=== PATIENT | female | born 1980 | race Hispanic/Latino ===

== ENCOUNTER 2017-02-04 10:21 | Emergency (ER) | payer SELFPAY ==
[2017-02-04 11:01] VITALS: BP 132/81
[2017-02-04] MEDS ORDERED: TORADOL IM ONE (11:35)
--- NOTE | 2017-02-04 11:36 | Emergency Department Report ---
Entered by ROBBIE JACKMAN, acting as scribe for EFRAÍN MUELLER PA. ED ENT HPI - General Chief complaint: Sore Throat Stated complaint: SORE THROAT Time Seen by Provider: 02/04/17 11:25 Source: patient Mode of arrival: Ambulatory Limitations: No Limitations - History of Present Illness Initial comments: 36 y/o female with a PMHx of asthma, ovarian cysts, and pancreatitis presents to the ED c/o a gradually worsening sore throat that began 2 days ago. Rates pain an 8/10 in severity, which she describes as aching in quality. Aggravated with swallowing and alleviated with nothing. Denies drooling, fever, chills, nausea, vomiting, ear pain, facial pain, headache, and dizziness. Denies any sick contacts. Allergic to cyclobenzaprine HCl. complaint: sore throat Onset/Timin -: days(s) Location: throat Severity: severe Severity scale (0 -10): 8 Quality: aching Consistency: constant Improves with: none Worsens with: swallowing Associated Symptoms: sore throat. denies: fever, cough, gum swelling, toothache , pain with swallowing, tinnitus, hearing loss, discharge from ear, rhinorrhea - Related Data Previous Rx's Medication Instructions Recorded Last Taken Type oxyCODONE /ACETAMINOPHEN [Percocet 1 tab PO Q6HR PRN #10 tablet 04/25/14 Unknown Rx 5/325] Ciprofloxacin HCl [Cipro] 250 mg PO BID #6 tablet 10/16/14 Unknown Rx Ibuprofen [Motrin 800 MG tab] 800 mg PO TID PRN #30 tablet 10/16/14 Unknown Rx Methocarbamol [Robaxin] 750 mg PO BID #20 tab 10/16/14 Unknown Rx oxyCODONE /ACETAMINOPHEN [Percocet 1 tab PO Q6HR PRN #20 tablet 01/24/15 Unknown Rx 5/325 mg] Albuterol Sulfate [Ventolin HFA] 2 puff IH Q4H PRN #1 hfa.aer.ad 09/21/15 Unknown Rx Clarithromycin [Biaxin] 500 mg PO BID #20 tab 09/21/15 Unknown Rx predniSONE [Deltasone] 50 mg PO QDAY #5 tab 09/21/15 Unknown Rx traMADol [Ultram 50 MG tab] 50 mg PO Q6HR PRN #10 tablet 09/21/15 Unknown Rx Ibuprofen [Motrin] 800 mg PO Q8HR PRN #30 tablet 02/04/17 Unknown Rx Penicillin Vk [Veetids TAB] 500 mg PO BID #40 tablet 02/04/17 Unknown Rx Allergies Allergy/AdvReac Type Severity Reaction Status Date / Time cyclobenzaprine HCl Allergy Itching Verified 01/24/15 16:08 [From [facility]] ED Dental HPI - General Chief complaint: Sore Throat Stated complaint: SORE THROAT Time Seen by Provider: 02/04/17 11:25 Source: patient Mode of arrival: Ambulatory Limitations: No Limitations - History of Present Illness MD complaint: sore throat Onset/Timin -: days(s) Severity: severe Quality: aching Consistency: constant Improves with: none Worsens with: swallowing Dental Associated Symptons: Yes: Sore Throat. No: Headache, Earache, Gum Swelling, Fever - Related Data Previous Rx's Medication Instructions Recorded Last Taken Type oxyCODONE /ACETAMINOPHEN [Percocet 1 tab PO Q6HR PRN #10 tablet 04/25/14 Unknown Rx 5/325] Ciprofloxacin HCl [Cipro] 250 mg PO BID #6 tablet 10/16/14 Unknown Rx Ibuprofen [Motrin 800 MG tab] 800 mg PO TID PRN #30 tablet 10/16/14 Unknown Rx Methocarbamol [Robaxin] 750 mg PO BID #20 tab 10/16/14 Unknown Rx oxyCODONE /ACETAMINOPHEN [Percocet 1 tab PO Q6HR PRN #20 tablet 01/24/15 Unknown Rx 5/325 mg] Albuterol Sulfate [Ventolin HFA] 2 puff IH Q4H PRN #1 hfa.aer.ad 09/21/15 Unknown Rx Clarithromycin [Biaxin] 500 mg PO BID #20 tab 09/21/15 Unknown Rx predniSONE [Deltasone] 50 mg PO QDAY #5 tab 09/21/15 Unknown Rx traMADol [Ultram 50 MG tab] 50 mg PO Q6HR PRN #10 tablet 09/21/15 Unknown Rx Ibuprofen [Motrin] 800 mg PO Q8HR PRN #30 tablet 02/04/17 Unknown Rx Penicillin Vk [Veetids TAB] 500 mg PO BID #40 tablet 02/04/17 Unknown Rx Allergies Allergy/AdvReac Type Severity Reaction Status Date / Time cyclobenzaprine HCl Allergy Itching Verified 01/24/15 16:08 [From Flexeril] ED Review of Systems Comment: All other systems reviewed and negative Constitutional: denies: chills, fever Eyes: denies: eye pain, eye discharge, vision change ENT: throat pain. denies: ear pain, dental pain, hearing loss, epistaxis, congestion Respiratory: denies: cough, shortness of breath, wheezing Cardiovascular: denies: chest pain, palpitations Endocrine: no symptoms reported Gastrointestinal: denies: abdominal pain, nausea, vomiting, diarrhea Musculoskeletal: denies: back pain, joint swelling, arthralgia Skin: denies: rash, lesions Neurological: denies: headache, weakness, numbness, paresthesias ED Past Medical Hx - Past Medical History Previous Medical History?: Yes Hx Congestive Heart Failure: No Hx Diabetes: No Hx Asthma: Yes Hx COPD: No Additional medical history: History of ovarian cysts. History of pancreatitis - Surgical History Past Surgical History?: Yes Hx Cholecystectomy: Yes Additional Surgical History: tubal ligation. Right knee arthroscopy for mensical tear 12/01/13 - Family History Family history: no significant - Social History Smoking Status: Current Every Day Smoker Substance Use Type: None - Medications Home Medications: Home Medications Medication Instructions Recorded Confirmed Last Taken Type oxyCODONE /ACETAMINOPHEN [Percocet 1 tab PO Q6HR PRN #10 tablet 04/25/14 Unknown Rx 5/325] Ciprofloxacin HCl [Cipro] 250 mg PO BID #6 tablet 10/16/14 Unknown Rx Ibuprofen [Motrin 800 MG tab] 800 mg PO TID PRN #30 tablet 10/16/14 Unknown Rx Methocarbamol [Robaxin] 750 mg PO BID #20 tab 10/16/14 Unknown Rx oxyCODONE /ACETAMINOPHEN [Percocet 1 tab PO Q6HR PRN #20 tablet 01/24/15 Unknown Rx 5/325 mg] Albuterol Sulfate [Ventolin HFA] 2 puff IH Q4H PRN #1 hfa.aer.ad 09/21/15 Unknown Rx Clarithromycin [Biaxin] 500 mg PO BID #20 tab 09/21/15 Unknown Rx predniSONE [Deltasone] 50 mg PO QDAY #5 tab 09/21/15 Unknown Rx traMADol [Ultram 50 MG tab] 50 mg PO Q6HR PRN #10 tablet 09/21/15 Unknown Rx Ibuprofen [Motrin] 800 mg PO Q8HR PRN #30 tablet 02/04/17 Unknown Rx Penicillin Vk [Veetids TAB] 500 mg PO BID #40 tablet 02/04/17 Unknown Rx ED Physical Exam - General Limitations: No Limitations General appearance: alert, in no apparent distress - Head Head exam: Present: atraumatic, normocephalic - Eye Eye exam: Present: normal appearance, PERRL, EOMI Pupils: Present: normal accommodation - ENT ENT exam: Present: mucous membranes moist, TM's normal bilaterally, normal external ear exam. Absent: normal exam, normal orophraynx - Expanded ENT Exam Expanded Ear exam: Present: normal external inspection Mouth exam: Present: normal external inspection, tongue normal. Absent: drooling, trismus, muffled voice, tongue elevation, laceration Teeth exam: Present: normal inspection Throat exam: Positive: tonsillar erythema, tonsillomegaly, tonsillar exudate. Negative: normal inspection, R peritonsillar mass, L peritonsillar mass - Neck Neck exam: Present: normal inspection, full ROM. Absent: tenderness, meningismus, lymphadenopathy, thyromegaly - Respiratory Respiratory exam: Present: normal lung sounds bilaterally. Absent: respiratory distress - Cardiovascular Cardiovascular Exam: Present: regular rate, normal rhythm. Absent: systolic murmur, diastolic murmur, rubs, gallop - GI/Abdominal GI/Abdominal exam: Present: soft, normal bowel sounds. Absent: distended - Extremities Exam Extremities exam: Present: normal inspection - Back Exam Back exam: Present: normal inspection - Neurological Exam Neurological exam: Present: alert, oriented X3 - Psychiatric Psychiatric exam: Present: normal affect, normal mood - Skin Skin exam: Present: warm, dry, intact, normal color. Absent: rash ED Course Vital Signs 02/04/17 10:57 Temperature 98.7 F Pulse Rate 91 H Respiratory 18 Rate Blood Pressure 132/81 O2 Sat by Pulse 100 Oximetry ED Medical Decision Making - Medical Decision Making patient is resting comfortably at this time. VSS and NAD. will treat for strept ED Disposition Clinical Impression: Acute bacterial tonsillitis Disposition: DC- TO HOME OR SELFCARE Is pt being admited?: No Does the pt Need Aspirin: No Condition: Good Instructions: Tonsillitis (ED) Prescriptions: Ibuprofen [Motrin] 800 mg PO Q8HR PRN #30 tablet PRN Reason: Pain Penicillin Vk [Veetids TAB] 500 mg PO BID #40 tablet Referrals: SHAYNA MC MD [Staff Physician] - 3-5 Days Forms: Work/School Release Form(ED) Time of Disposition: 11:35 This documentation as recorded by the GASPER bingham JASMINE,accurately reflects the service I personally performed and the decisions made by , EFRAÍN MUELLER PA.
== END 2017-02-04 11:47 | disposition home or self-care (01) ==
LOC: ED 10:21
DX: J03.90 Acute tonsillitis, unspecified (principal); J45.909 Unspecified asthma, uncomplicated; F17.210 Nicotine dependence, cigarettes, uncomplicated; Z88.8 Allergy status to other drugs, medicaments and biological substances
CPT/HCPCS: 96372; 99282; J1885

== ENCOUNTER 2017-04-24 16:35 | Emergency (ER) | payer SELFPAY ==
[2017-04-24 17:02] LABS: Basophils % (Auto) 0.6 % (0.0-1.8); Eosinophils % (Auto) 2.2 % (0.0-4.3); Hematocrit 42.4 % (30.3-42.9); Hemoglobin 14.4 gm/dl (10.1-14.3); Mean Corpuscular HGB Conc 34 % (30-34); Mean Corpuscular Hemoglobin 31 pg (28-32); Mean Corpuscular Volume 92 fl (79-97); Platelet Count 237 K/mm3 (140-440); Red Cell Distribution Width 13.3 % (13.2-15.2); White Blood Count 9.2 K/mm3 (4.5-11.0)
[2017-04-24 17:25] LABS: Anion Gap 18 mmol/L; BUN/Creatinine Ratio 18; Blood Urea Nitrogen 11 mg/dL (7-17); Calcium 8.6 mg/dL (8.4-10.2); Carbon Dioxide 24 mmol/L (22-30); Chloride 102.9 mmol/L (98-107); Glucose 99 mg/dL (65-100); Potassium 3.8 mmol/L (3.6-5.0); Sodium 141 mmol/L (137-145)
[2017-04-24] MEDS ORDERED: TYLENOL PO ONE (20:09)
[2017-04-24] MEDS ORDERED: TYLENOL ONE (20:10)
[2017-04-24 20:21] VITALS: BP 144/84
[2017-04-25] MEDS ORDERED: TORADOL IM ONE (04:34)
[2017-04-25] MEDS ORDERED: NORCO 5/325 PO ONE (04:34)
--- NOTE | 2017-04-25 05:35 | Emergency Department Report ---
ED Chest Pain HPI - General Chief Complaint: Chest Pain Stated Complaint: CHEST PAIN Time Seen by Provider: 04/25/17 03:43 Source: patient Mode of arrival: Ambulatory Limitations: No Limitations - History of Present Illness Initial Comments: This is a 36-year-old female presents to the emergency department with a complaint of some midsternal chest discomfort with some radiation towards the middle of her back that has been going on for the past 2 days. It is a sharp and/or shooting pain. She also complains of some nonspecific dizziness over the past 2 days. She denies any headache, slurred speech or any other neurological deficits. Occasionally she feels like she sees some "black dots" in her vision. She has a history of ovarian cysts, previous pancreatitis. She has a history of tubal ligation and cholecystectomy. She is not taking anything for her symptoms prior to presentation. She is a tobacco smoker but denies any illicit drug use. No recent travel or sick contacts at home. Severity scale (0 -10): 6 - Related Data Previous Rx's Medication Instructions Recorded Last Taken Type oxyCODONE /ACETAMINOPHEN [Percocet 1 tab PO Q6HR PRN #10 tablet 04/25/14 Unknown Rx 5/325] Ciprofloxacin HCl [Cipro] 250 mg PO BID #6 tablet 10/16/14 Unknown Rx Ibuprofen [Motrin 800 MG tab] 800 mg PO TID PRN #30 tablet 10/16/14 Unknown Rx Methocarbamol [Robaxin] 750 mg PO BID #20 tab 10/16/14 Unknown Rx oxyCODONE /ACETAMINOPHEN [Percocet 1 tab PO Q6HR PRN #20 tablet 01/24/15 Unknown Rx 5/325 mg] Albuterol Sulfate [Ventolin HFA] 2 puff IH Q4H PRN #1 hfa.aer.ad 09/21/15 Unknown Rx Clarithromycin [Biaxin] 500 mg PO BID #20 tab 09/21/15 Unknown Rx predniSONE [Deltasone] 50 mg PO QDAY #5 tab 09/21/15 Unknown Rx traMADol [Ultram 50 MG tab] 50 mg PO Q6HR PRN #10 tablet 09/21/15 Unknown Rx Ibuprofen [Motrin] 800 mg PO Q8HR PRN #30 tablet 02/04/17 Unknown Rx Penicillin Vk [Veetids TAB] 500 mg PO BID #40 tablet 02/04/17 Unknown Rx HYDROcodone/ACETAMINOPHEN [[place] 1 each PO Q6H PRN #8 tablet 04/25/17 Unknown Rx 5-325 Tablet] Allergies Allergy/AdvReac Type Severity Reaction Status Date / Time cyclobenzaprine HCl Allergy Itching Verified 04/24/17 16:44 [From Flexeril] Heart Score - HEART Score History: Slightly suspicious EKG: Normal Age: < 45 Risk factors: 1-2 risk factors Troponin: < normal limit HEART Score: 1 ED Review of Systems ROS: Stated complaint: CHEST PAIN Other details as noted in HPI Comment: All other systems reviewed and negative Constitutional: denies: chills, fever Eyes: denies: eye pain, eye discharge ENT: denies: ear pain, throat pain Respiratory: denies: cough, shortness of breath, wheezing Cardiovascular: chest pain. denies: palpitations Gastrointestinal: denies: abdominal pain, nausea, diarrhea Genitourinary: denies: urgency, dysuria, discharge Musculoskeletal: back pain. denies: joint swelling Skin: denies: rash, lesions Neurological: denies: headache, weakness, paresthesias ED Past Medical Hx - Past Medical History Hx Congestive Heart Failure: No Hx Diabetes: No Hx Asthma: Yes Hx COPD: No Additional medical history: History of ovarian cysts. History of pancreatitis - Surgical History Hx Cholecystectomy: Yes Additional Surgical History: tubal ligation. Right knee arthroscopy for mensical tear 12/01/13 - Social History Smoking Status: Current Every Day Smoker Substance Use Type: None - Medications Home Medications: Home Medications Medication Instructions Recorded Confirmed Last Taken Type oxyCODONE /ACETAMINOPHEN [Percocet 1 tab PO Q6HR PRN #10 tablet 04/25/14 Unknown Rx 5/325] Ciprofloxacin HCl [Cipro] 250 mg PO BID #6 tablet 10/16/14 Unknown Rx Ibuprofen [Motrin 800 MG tab] 800 mg PO TID PRN #30 tablet 10/16/14 Unknown Rx Methocarbamol [Robaxin] 750 mg PO BID #20 tab 10/16/14 Unknown Rx oxyCODONE /ACETAMINOPHEN [Percocet 1 tab PO Q6HR PRN #20 tablet 01/24/15 Unknown Rx 5/325 mg] Albuterol Sulfate [Ventolin HFA] 2 puff IH Q4H PRN #1 hfa.aer.ad 09/21/15 Unknown Rx Clarithromycin [Biaxin] 500 mg PO BID #20 tab 09/21/15 Unknown Rx predniSONE [Deltasone] 50 mg PO QDAY #5 tab 09/21/15 Unknown Rx traMADol [Ultram 50 MG tab] 50 mg PO Q6HR PRN #10 tablet 09/21/15 Unknown Rx Ibuprofen [Motrin] 800 mg PO Q8HR PRN #30 tablet 02/04/17 Unknown Rx Penicillin Vk [Veetids TAB] 500 mg PO BID #40 tablet 02/04/17 Unknown Rx HYDROcodone/ACETAMINOPHEN [[place] 1 each PO Q6H PRN #8 tablet 04/25/17 Unknown Rx 5-325 Tablet] ED Physical Exam - General Limitations: No Limitations - Other Other exam information: GENERAL: The patient is well-developed well-nourished. HENT: Normocephalic. Atraumatic. Patient has moist mucous membranes. EYES: Extraocular motions are intact. Pupils equal reactive to light bilaterally. No nystagmus. NECK: Supple. Trachea is midline. CHEST/LUNGS: Clear to auscultation. There is no respiratory distress noted. Chest pain is reproducible to palpation of the chest wall. HEART/CARDIOVASCULAR: Regular. There is no tachycardia. There is no gallop rub or murmur. ABDOMEN: Abdomen is soft, nontender. Patient has normal bowel sounds. There is no abdominal distention. SKIN: Skin is warm and dry. NEURO: The patient is awake, alert, and oriented. The patient is cooperative. The patient has no focal neurologic deficits. The patient has normal speech and gait. Cranial nerves II through XII grossly intact. MUSCULOSKELETAL: There is no tenderness or deformity. There is no limitation range of motion. There is no evidence of acute injury. ED Course Vital Signs 04/24/17 04/24/17 04/25/17 16:44 20:20 03:28 Temperature 98.5 F 99.2 F Pulse Rate 93 H 72 Respiratory 20 18 18 Rate Blood Pressure 140/84 144/84 O2 Sat by Pulse 97 98 99 Oximetry YVONNE score - Yvonne Score Age > 65: (0) No Aspirin use within the Past 7 Days: (0) No 3 or more CAD Risk Factors: (0) No 2 or more Angina events in past 24 hrs: (1) Yes Known CAD with more than 50% Stenosis: (0) No Elevated Cardiac Markers: (0) No ST Deviation Greater than 0.5mm: (0) No YVONNE Score: 1 ED Medical Decision Making - Lab Data Result diagrams: 04/24/17 16:53 04/24/17 16:53 - EKG Data -: EKG Interpreted by Me EKG shows normal: sinus rhythm, axis, intervals, QRS complexes, ST-T waves Rate: normal - EKG Data When compared to previous EKG there are: previous EKG unavailable Interpretation: normal EKG - Radiology Data Radiology results: image reviewed interpreted by me: Chest x-ray does not show any acute process. There are no pleural effusions, obvious pneumonia and there is no pneumothorax. - Medical Decision Making Patient complains of a 2 day history of some chest pain with some radiation towards the back and some nonspecific dizziness. EKG is normal without any ST elevation OR, ischemia or dysrhythmia. Her labs have been unremarkable including negative troponins 3 and a negative d-dimer. No leukocytosis, electrolyte abnormalities, renal insufficiency or glucose abnormalities. Heart and lung sounds are normal to auscultation. The chest pain is reproducible to palpation of the chest wall. Chest x-ray does not show any acute process. Vital signs stable throughout her ED course. She does not have any focal, motor or sensory deficits in her cranial nerves are intact. On top of this, the patient is not complaining of any headache. For these reasons a CT of the head was not done at this time. She is low on the hard score criteria. She has a YVONNE score of one if her pain is to be considered angina which I do not believe it is and it is more likely to be costochondritis and/or chest wall pain. She appears safe for discharge home at this time. She will be given referrals for primary care clinics. She has been encouraged to return to the emergency Department with any worsening of her symptoms or any acute distress. Discharge instructions have been given while in the emergency department and all of her questions have been answered. - Differential Diagnosis costochondritis, OR, PE, pneumonia Critical Care Time: No Critical care attestation.: If time is entered above; I have spent that time in minutes in the direct care of this critically ill patient, excluding procedure time. ED Disposition Clinical Impression: Costochondritis, Dizziness Chest pain Qualifiers: Chest pain type: unspecified Qualified Code(s): R07.9 - Chest pain, unspecified Disposition: DC-01 TO HOME OR SELFCARE Is pt being admited?: No Condition: Stable Instructions: Chest Pain (ED), Costochondritis (ED), Lightheadedness (ED), Dizziness (ED) Additional Instructions: Please follow up with a primary care physician in the next few days. I have given you a referral for a local actor understudy, Dr. Calles, in case she would like to follow up regarding your intermittent chest pains. Return to the emergency Department with any worsening of your symptoms are any acute distress. You have been prescribed a medication that is sedating and therefore should not be taken prior to driving, working, and responsible for children and in no way should be mixed with alcohol of any quantity. Prescriptions: HYDROcodone/ACETAMINOPHEN [[place] 5-325 Tablet] 1 each PO Q6H PRN #8 tablet PRN Reason: Pain Referrals: INGA CALLES MD [Staff Physician] - 3-5 Days [facility] [Outside] - 3-5 Days [facility] [Outside] - 3-5 Days [facility] [Outside] - 3-5 Days Time of Disposition: 05:40
--- NOTE | 2017-04-25 09:45 | XRay Report ---
AP CHEST: HISTORY: chest pain AP view of the chest demonstrates a normal mediastinal and cardiac contour with clear lungs and normal bony and soft tissue structures. No significant change since 09/21/15. IMPRESSION: Unremarkable AP chest.
== END 2017-04-25 06:00 | disposition home or self-care (01) ==
LOC: ED 16:35
DX: M94.0 Chondrocostal junction syndrome [Tietze] (principal); R42 Dizziness and giddiness; J45.909 Unspecified asthma, uncomplicated; F17.200 Nicotine dependence, unspecified, uncomplicated; Z88.8 Allergy status to other drugs, medicaments and biological substances; Z90.49 Acquired absence of other specified parts of digestive tract; Z98.890 Other specified postprocedural states
CPT/HCPCS: 36415; 71010; 80048; 84484; 84703; 85025; 85379; 93005; 93010; 96372; 99284; J1885

== ENCOUNTER 2017-05-23 10:21 | Emergency (ER) | payer SELFPAY ==
[2017-05-23 11:05] LABS: Basophils % (Auto) 0.8 % (0.0-1.8); Eosinophils % (Auto) 1.2 % (0.0-4.3); Hematocrit 46.7 % (30.3-42.9); Mean Corpuscular HGB Conc 34 % (30-34); Mean Corpuscular Hemoglobin 31 pg (28-32); Mean Corpuscular Volume 91 fl (79-97); Platelet Count 188 K/mm3 (140-440); Red Blood Count 5.12 M/mm3 (3.65-5.03); Red Cell Distribution Width 12.9 % (13.2-15.2); White Blood Count 3.8 K/mm3 (4.5-11.0)
[2017-05-23 11:18] LABS: Anion Gap 18 mmol/L; BUN/Creatinine Ratio 11; Blood Urea Nitrogen 8 mg/dL (7-17); Calcium 8.8 mg/dL (8.4-10.2); Carbon Dioxide 21 mmol/L (22-30); Chloride 102.3 mmol/L (98-107); Glucose 107 mg/dL (65-100); Potassium 4.1 mmol/L (3.6-5.0); Sodium 137 mmol/L (137-145)
[2017-05-23 11:22] LABS: Bacteria,Urine 1+ /HPF (Negative); Bilirubin,Urine NEG (Negative); Blood,Urine NEG (Negative); Ketones,Urine TR mg/dL (Negative); Leukocyte Esterase,Urine TR (Negative); Mucus,Urine 3+ /HPF; Nitrite,Urine NEG (Negative); Protein,Urine <15 mg/dL mg/dL (Negative)
[2017-05-23] MEDS ORDERED: TORADOL IV ONE (13:23)
[2017-05-23] MEDS ORDERED: NACL 0.9% 1000 ML 1,000 ML IV ONE (13:23)
[2017-05-23] MEDS ORDERED: ATROVENT IH ONE (13:23)
[2017-05-23] MEDS ORDERED: PROVENTIL IH ONE (13:23)
[2017-05-23] MEDS ORDERED: ZOFRAN IV ONE (13:23)
[2017-05-23] MEDS ORDERED: MAGNESIUM SULFATE 2GM/50ML 2 GM/50 ML BAG IV ONE (13:24)
[2017-05-23 13:28] VITALS: BP 134/100
--- NOTE | 2017-05-23 14:24 | Emergency Department Report ---
ED Fever HPI - General Chief Complaint: Nausea/Vomiting/Diarrhea Stated Complaint: FLU SYMPTOMS Time Seen by Provider: 05/23/17 13:14 Source: patient Exam Limitations: no limitations - History of Present Illness Initial Comments: 36-year-old female with a past medical history of previous ovarian cyst and pancreatitis presents to the hospital complaining of intermittent fevers, nausea , vomiting, and generalized body aches and cough for the past 2 days. Patient tolerating very little by mouth intake and approximate 4 episodes of vomiting a day since symptom onset. She denies hematemesis, diarrhea, dysuria, abdominal pain, headache, nuchal rigidity/neck pain, or sore throat. Patient having generalized cramping to her muscles and reports shortness of breath with associated wheezing is worse with exertion. She denies a history of asthma but does smoke cigarettes. No sick contacts or recent travel. Patient did not receive a flu shot. PMD: none ED Review of Systems ROS: Stated complaint: FLU SYMPTOMS Other details as noted in HPI Comment: All other systems reviewed and negative Other: Constitutional: as per hpi Eyes: No eye pain visual changes ENT: No ear pain or throat pain Neck: Denies pain Respiratory: as per hpi Cardiovascular: Denies chest pain, palpitations, syncope GI: as per hpi : Denies dysuria Musculoskeletal: Denies back pain Skin: Denies rash, lesions, erythema Neurologic: Denies headache, numbness, weakness Psychiatric: Denies suicidal ideation, hallucinations ED Past Medical Hx - Past Medical History Previous Medical History?: Yes Hx Congestive Heart Failure: No Hx Diabetes: No Hx Asthma: No Hx COPD: No Additional medical history: History of ovarian cysts. History of pancreatitis - Surgical History Hx Cholecystectomy: Yes Additional Surgical History: tubal ligation. Right knee arthroscopy for mensical tear 12/01/13 - Social History Smoking Status: Current Every Day Smoker Substance Use Type: None - Medications Home Medications: Home Medications Medication Instructions Recorded Confirmed Last Taken Type oxyCODONE /ACETAMINOPHEN [Percocet 1 tab PO Q6HR PRN #10 tablet 04/25/14 Unknown Rx 5/325] Ciprofloxacin HCl [Cipro] 250 mg PO BID #6 tablet 10/16/14 Unknown Rx Ibuprofen [Motrin 800 MG tab] 800 mg PO TID PRN #30 tablet 10/16/14 Unknown Rx Methocarbamol [Robaxin] 750 mg PO BID #20 tab 10/16/14 Unknown Rx oxyCODONE /ACETAMINOPHEN [Percocet 1 tab PO Q6HR PRN #20 tablet 01/24/15 Unknown Rx 5/325 mg] Albuterol Sulfate [Ventolin HFA] 2 puff IH Q4H PRN #1 hfa.aer.ad 09/21/15 Unknown Rx Clarithromycin [Biaxin] 500 mg PO BID #20 tab 09/21/15 Unknown Rx predniSONE [Deltasone] 50 mg PO QDAY #5 tab 09/21/15 Unknown Rx traMADol [Ultram 50 MG tab] 50 mg PO Q6HR PRN #10 tablet 09/21/15 Unknown Rx Ibuprofen [Motrin] 800 mg PO Q8HR PRN #30 tablet 02/04/17 Unknown Rx Penicillin Vk [Veetids TAB] 500 mg PO BID #40 tablet 02/04/17 Unknown Rx HYDROcodone/ACETAMINOPHEN [[place] 1 each PO Q6H PRN #8 tablet 04/25/17 Unknown Rx 5-325 Tablet] ALBUTEROL Inhaler [ProAir HFA 2 puff IH QID PRN #1 inhalation 05/23/17 Unknown Rx Inhaler] Ibuprofen [Motrin] 800 mg PO Q8HR PRN #30 tablet 05/23/17 Unknown Rx Inhaler, Assist Devices [Space 1 each MC PRN #1 spacer 05/23/17 Unknown Rx Chamber Plus] Ondansetron [Zofran Odt] 4 mg PO Q8HR #20 tab.rapdis 05/23/17 Unknown Rx predniSONE [Deltasone] 40 mg PO QDAY 5 Days tab 05/23/17 Unknown Rx traMADol [Ultram] 50 mg PO Q6HR PRN #20 tablet 05/23/17 Unknown Rx ED Physical Exam - General Limitations: No Limitations - Other Other exam information: General: No limitations, patient is alert in no acute distress Head exam: Atraumatic, normocephalic Eyes exam: Normal appearance ENT: Moist mucous membrane Neck exam: Normal inspection, full range of motion, no meningismus nontender Respiratory exam: Bilateral wheezing, no accessory muscle use Cardiovascular: Normal rate and rhythm, anterior chest wall tenderness Abdomen: Soft, nondistended, and nontender, with normal bowel sounds, no rebound, or guarding Extremity: Full range of motion normal inspection no deformity, no calf tenderness or edema Back: Normal Inspection, full range of motion, no tenderness Neurologic: Alert, oriented x3, cranial nerves intact, no motor or sensory deficit Psychiatric: normal affect, normal mood Skin: Warm, dry, intact ED Course Vital Signs 05/23/17 05/23/17 05/23/17 10:30 10:35 13:26 Temperature 99 F 98.1 F Pulse Rate 98 H 90 Respiratory 18 Rate Blood Pressure 129/83 134/100 [Right] O2 Sat by Pulse 97 Oximetry - Reevaluation(s) Reevaluation #1: 05/23/17 16:34 Wheezing resolved after ED treatment. Patient reports she still feels tired and fatigued but no longer sob ED Medical Decision Making - Lab Data Result diagrams: 05/23/17 10:41 05/23/17 10:41 Lab Results 05/23/17 05/23/17 05/23/17 Range/Units 10:41 10:41 10:41 WBC 3.8 L (4.5-11.0) K/mm3 RBC 5.12 H (3.65-5.03) M/mm3 Hgb 16.0 H (10.1-14.3) gm/dl Hct 46.7 H (30.3-42.9) % MCV 91 (79-97) fl MCH 31 (28-32) pg MCHC 34 (30-34) % RDW 12.9 L (13.2-15.2) % Plt Count 188 (140-440) K/mm3 Lymph % (Auto) 34.1 (13.4-35.0) % [place] % (Auto) 12.3 H (0.0-7.3) % Eos % (Auto) 1.2 (0.0-4.3) % Baso % (Auto) 0.8 (0.0-1.8) % Lymph # 1.3 (1.2-5.4) K/mm3 [place] # 0.5 (0.0-0.8) K/mm3 Eos # 0.0 (0.0-0.4) K/mm3 Baso # 0.0 (0.0-0.1) K/mm3 Seg Neutrophils % 51.6 (40.0-70.0) % Seg Neutrophils # 1.9 (1.8-7.7) K/mm3 Sodium 137 (137-145) mmol/L Potassium 4.1 (3.6-5.0) mmol/L Chloride 102.3 (98-107) mmol/L Carbon Dioxide 21 L (22-30) mmol/L Anion Gap 18 mmol/L BUN 8 (7-17) mg/dL Creatinine 0.7 (0.7-1.2) mg/dL Estimated GFR > 60 ml/min BUN/Creatinine Ratio 11 % Glucose 107 H (65-100) mg/dL POC Glucose (70-105) Calcium 8.8 (8.4-10.2) mg/dL Total Bilirubin (0.1-1.2) mg/dL Direct Bilirubin (0-0.2) mg/dL Indirect Bilirubin mg/dL AST (5-40) units/L ALT (7-56) units/L Alkaline Phosphatase (35-129) units/L Total Protein (6.3-8.2) g/dL Albumin (3.9-5) g/dL Albumin/Globulin Ratio % Lipase (13-60) units/L Urine Color [place] (Yellow) Urine Turbidity Clear (Clear) Urine pH 5.0 (5.0-7.0) Ur Specific [place] 1.028 (1.003-1.030) Urine Protein <15 mg/dl (Negative) mg/dL Urine Glucose (UA) Neg (Negative) mg/dL Urine Ketones Tr (Negative) mg/dL Urine Blood Neg (Negative) Urine Nitrite Neg (Negative) Urine Bilirubin Neg (Negative) Urine Urobilinogen 4.0 (<2.0) mg/dL Ur Leukocyte Esterase Tr (Negative) Urine WBC (Auto) 2.0 (0.0-6.0) /HPF Urine RBC (Auto) 5.0 (0.0-6.0) /HPF U Epithel Cells (Auto) 15.0 H (0-13.0) /HPF Urine Bacteria (Auto) 1+ (Negative) /HPF Urine Mucus 3+ /HPF Urine HCG, Qual Negative (Negative) 05/23/17 05/23/17 Range/Units 10:41 15:30 WBC (4.5-11.0) K/mm3 RBC (3.65-5.03) M/mm3 Hgb (10.1-14.3) gm/dl Hct (30.3-42.9) % MCV (79-97) fl MCH (28-32) pg MCHC (30-34) % RDW (13.2-15.2) % Plt Count (140-440) K/mm3 Lymph % (Auto) (13.4-35.0) % [place] % (Auto) (0.0-7.3) % Eos % (Auto) (0.0-4.3) % Baso % (Auto) (0.0-1.8) % Lymph # (1.2-5.4) K/mm3 [place] # (0.0-0.8) K/mm3 Eos # (0.0-0.4) K/mm3 Baso # (0.0-0.1) K/mm3 Seg Neutrophils % (40.0-70.0) % Seg Neutrophils # (1.8-7.7) K/mm3 Sodium (137-145) mmol/L Potassium (3.6-5.0) mmol/L Chloride (98-107) mmol/L Carbon Dioxide (22-30) mmol/L Anion Gap mmol/L BUN (7-17) mg/dL Creatinine (0.7-1.2) mg/dL Estimated GFR ml/min BUN/Creatinine Ratio % Glucose (65-100) mg/dL POC Glucose 111 H (70-105) Calcium (8.4-10.2) mg/dL Total Bilirubin 0.50 (0.1-1.2) mg/dL Direct Bilirubin < 0.2 (0-0.2) mg/dL Indirect Bilirubin 0.3 mg/dL AST 48 H (5-40) units/L ALT 67 H (7-56) units/L Alkaline Phosphatase 61 (35-129) units/L Total Protein 7.7 (6.3-8.2) g/dL Albumin 4.1 (3.9-5) g/dL Albumin/Globulin Ratio 1.1 % Lipase 20 (13-60) units/L Urine Color (Yellow) Urine Turbidity (Clear) Urine pH (5.0-7.0) Ur Specific [place] (1.003-1.030) Urine Protein (Negative) mg/dL Urine Glucose (UA) (Negative) mg/dL Urine Ketones (Negative) mg/dL Urine Blood (Negative) Urine Nitrite (Negative) Urine Bilirubin (Negative) Urine Urobilinogen (<2.0) mg/dL Ur Leukocyte Esterase (Negative) Urine WBC (Auto) (0.0-6.0) /HPF Urine RBC (Auto) (0.0-6.0) /HPF U Epithel Cells (Auto) (0-13.0) /HPF Urine Bacteria (Auto) (Negative) /HPF Urine Mucus /HPF Urine HCG, Qual (Negative) - Radiology Data Radiology results: image reviewed (cxr: no acute infiltrate, read by me) - Medical Decision Making diagnosis viral syndrome + bronchitis will cover with abx for atypical pneumonia Steroids and bronchodilators for bronchospasm Symptomatic treatment for pain and fever Outpatient follow-up will be encouraged - Differential Diagnosis viral syndrome, pneumonia, bronchitis, influenza, pancreatitis, hepatitis Critical Care Time: No Critical care attestation.: If time is entered above; I have spent that time in minutes in the direct care of this critically ill patient, excluding procedure time. ED Disposition Clinical Impression: Viral syndrome, Acute bronchitis Disposition: TO HOME OR SELFCARE Is pt being admited?: No Does the pt Need Aspirin: No Condition: Stable Instructions: Acute Bronchitis (ED), Viral Syndrome (ED) Additional Instructions: Take the medication as prescribed. Follow-up with the clinic or doctor provided. Return if symptoms worsen as indicated by a discharge discharged Prescriptions: ALBUTEROL Inhaler [ProAir HFA Inhaler] 2 puff IH QID PRN #1 inhalation PRN Reason: Shortness Of Breath Ibuprofen [Motrin] 800 mg PO Q8HR PRN #30 tablet PRN Reason: Pain Inhaler, Assist Devices [Space Chamber Plus] 1 each MC PRN #1 spacer Ondansetron [Zofran Odt] 4 mg PO Q8HR #20 tab.rapdis predniSONE [Deltasone] 40 mg PO QDAY 5 Days tab traMADol [Ultram] 50 mg PO Q6HR PRN #20 tablet PRN Reason: Pain Referrals: [facility] [Provider Group] - 3-5 Days (primary care clinic) ROMEO TAYLOR MD [Staff Physician] - 3-5 Days (primary care doctor ) Time of Disposition: 16:39
[2017-05-23 14:41] LABS: Alanine Aminotransferase 67 units/L (7-56); Albumin 4.1 g/dL (3.9-5); Albumin/Globulin Ratio 1.1 %; Alkaline Phosphatase 61 units/L (35-129); Lipase 20 units/L (13-60); Total Protein 7.7 g/dL (6.3-8.2)
[2017-05-23 15:00] LABS: Bilirubin,Direct < 0.2 mg/dL (0-0.2)
[2017-05-23 15:34] LABS: Bilirubin,Indirect 0.3 mg/dL
--- NOTE | 2017-05-23 16:32 | XRay Report ---
FINAL REPORT EXAM: XR CHEST ROUTINE 2V HISTORY: wheeze, cough, fever TECHNIQUE: Frontal and lateral views of the chest. PRIORS: Chest x-ray September 21, 2015. FINDINGS: Cardiac silhouette is within normal limits. There is no effusion. There is no pneumothorax. There is no consolidation. Mild bilateral perihilar peribronchial thickening. There are no suspicious osseous lesions. IMPRESSION: Pulmonary findings may represent viral pneumonia, bronchitis, or reactive airway disease.
== END 2017-05-23 17:22 | disposition home or self-care (01) ==
LOC: ED 10:21
DX: J20.9 Acute bronchitis, unspecified (principal); B34.9 Viral infection, unspecified; F17.200 Nicotine dependence, unspecified, uncomplicated; Z90.49 Acquired absence of other specified parts of digestive tract; Z98.51 Tubal ligation status; Z88.8 Allergy status to other drugs, medicaments and biological substances
CPT/HCPCS: 36415; 71020; 80048; 80074; 81001; 81025; 82962; 83690; 85025; 87400; 94640; 96365; 96375; 99284; J1885; J2405; J2930; J3475; J7030

== ENCOUNTER 2017-06-07 12:34 | Emergency (ER) | payer SELFPAY ==
[2017-06-07 12:45] VITALS: BP 143/90
== END 2017-06-07 19:28 | disposition left against medical advice (07) ==
LOC: ED 12:34
DX: R06.09 Other forms of dyspnea (principal); Z53.21 Procedure and treatment not carried out due to patient leaving prior to being seen by health care provider
CPT/HCPCS: 87400

== ENCOUNTER 2017-07-27 14:16 | Emergency (ER) | payer SELFPAY ==
[2017-07-27 14:38] VITALS: BP 146/87
--- NOTE | 2017-07-27 16:09 | Emergency Department Report ---
Blank Doc - Documentation Documentation: Patient states that she was biting her nails 2 days ago and she feels as though she swallowed one of her nails and is stuck in the right side of her throat. X- ray soft tissue will be performed more at the patient's request. Patient most likely has some mucosal injury from a scratch from a nail.
[2017-07-27] MEDS ORDERED: ALUM-MAG HYDROX-SIMETH 200-200-20MG/5ML PO ONE (16:10)
[2017-07-27] MEDS ORDERED: LIDOCAINE VISCOUS 2% PO ONE (16:10)
--- NOTE | 2017-07-27 17:38 | XRay Report ---
FINAL REPORT EXAM: XR NECK SOFT TISSUE HISTORY: possible FB TECHNIQUE: Soft tissue neck two views PRIORS: None. FINDINGS: No radiopaque foreign bodies are identified. No abnormal soft tissue gas collections are seen. No evidence for pharyngeal distention or narrowing of the upper trachea. Epiglottis not appear enlarged. IMPRESSION: No radiopaque foreign bodies identified. Normal soft tissue neck
--- NOTE | 2017-07-27 18:17 | Emergency Department Report ---
ED ENT HPI - General Chief complaint: Sore Throat Stated complaint: THROAT PAIN Time Seen by Provider: 07/27/17 16:08 Source: patient Mode of arrival: Ambulatory Limitations: No Limitations - History of Present Illness Initial comments: This is a 36-year-old female nontoxic, well nourished in appearance, no acute signs of distress presents to the ED with c/o of sore throat. Patient stated she was bitting her nails and believes she swallowed her nails and is stuck. Patient denies any drooling, difficulty breathing, fever, chills, headache, stiff neck, nausea or vomiting. MD complaint: sore throat Location: throat Severity: mild Severity scale (0 -10): 8 Quality: aching Consistency: constant Improves with: none Worsens with: swallowing Associated Symptoms: pain with swallowing, sore throat. denies: fever, cough, gum swelling, toothache, tinnitus, hearing loss, discharge from ear, rhinorrhea - Related Data Previous Rx's Medication Instructions Recorded Last Taken Type oxyCODONE /ACETAMINOPHEN [Percocet 1 tab PO Q6HR PRN #10 tablet 04/25/14 Unknown Rx 5/325] Ciprofloxacin HCl [Cipro] 250 mg PO BID #6 tablet 10/16/14 Unknown Rx Ibuprofen [Motrin 800 MG tab] 800 mg PO TID PRN #30 tablet 10/16/14 Unknown Rx Methocarbamol [Robaxin] 750 mg PO BID #20 tab 10/16/14 Unknown Rx oxyCODONE /ACETAMINOPHEN [Percocet 1 tab PO Q6HR PRN #20 tablet 01/24/15 Unknown Rx 5/325 mg] Albuterol Sulfate [Ventolin HFA] 2 puff IH Q4H PRN #1 hfa.aer.ad 09/21/15 Unknown Rx Clarithromycin [Biaxin] 500 mg PO BID #20 tab 09/21/15 Unknown Rx predniSONE [Deltasone] 50 mg PO QDAY #5 tab 09/21/15 Unknown Rx traMADol [Ultram 50 MG tab] 50 mg PO Q6HR PRN #10 tablet 09/21/15 Unknown Rx Ibuprofen [Motrin] 800 mg PO Q8HR PRN #30 tablet 02/04/17 Unknown Rx Penicillin Vk [Veetids TAB] 500 mg PO BID #40 tablet 02/04/17 Unknown Rx HYDROcodone/ACETAMINOPHEN [[place] 1 each PO Q6H PRN #8 tablet 04/25/17 Unknown Rx 5-325 Tablet] ALBUTEROL Inhaler [ProAir HFA 2 puff IH QID PRN #1 inhalation 05/23/17 Unknown Rx Inhaler] Ibuprofen [Motrin] 800 mg PO Q8HR PRN #30 tablet 05/23/17 Unknown Rx Inhaler, Assist Devices [Space 1 each MC PRN #1 spacer 05/23/17 Unknown Rx Chamber Plus] Ondansetron [Zofran Odt] 4 mg PO Q8HR #20 tab.rapdis 05/23/17 Unknown Rx predniSONE [Deltasone] 40 mg PO QDAY 5 Days tab 05/23/17 Unknown Rx traMADol [Ultram] 50 mg PO Q6HR PRN #20 tablet 05/23/17 Unknown Rx Nystas/Diphen/Xyl Visc/Mylanta 15 ml MM Q4H PRN 5 Days ml 07/27/17 Unknown Rx [Magic Mouthwash] Allergies Allergy/AdvReac Type Severity Reaction Status Date / Time cyclobenzaprine HCl Allergy Itching Verified 04/24/17 16:44 [From Flexeril] ED Dental HPI - General Chief complaint: Sore Throat Stated complaint: THROAT PAIN Time Seen by Provider: 07/27/17 16:08 Source: patient Mode of arrival: Ambulatory Limitations: No Limitations - Related Data Previous Rx's Medication Instructions Recorded Last Taken Type oxyCODONE /ACETAMINOPHEN [Percocet 1 tab PO Q6HR PRN #10 tablet 04/25/14 Unknown Rx 5/325] Ciprofloxacin HCl [Cipro] 250 mg PO BID #6 tablet 10/16/14 Unknown Rx Ibuprofen [Motrin 800 MG tab] 800 mg PO TID PRN #30 tablet 10/16/14 Unknown Rx Methocarbamol [Robaxin] 750 mg PO BID #20 tab 10/16/14 Unknown Rx oxyCODONE /ACETAMINOPHEN [Percocet 1 tab PO Q6HR PRN #20 tablet 01/24/15 Unknown Rx 5/325 mg] Albuterol Sulfate [Ventolin HFA] 2 puff IH Q4H PRN #1 hfa.aer.ad 09/21/15 Unknown Rx Clarithromycin [Biaxin] 500 mg PO BID #20 tab 09/21/15 Unknown Rx predniSONE [Deltasone] 50 mg PO QDAY #5 tab 09/21/15 Unknown Rx traMADol [Ultram 50 MG tab] 50 mg PO Q6HR PRN #10 tablet 09/21/15 Unknown Rx Ibuprofen [Motrin] 800 mg PO Q8HR PRN #30 tablet 02/04/17 Unknown Rx Penicillin Vk [Veetids TAB] 500 mg PO BID #40 tablet 02/04/17 Unknown Rx HYDROcodone/ACETAMINOPHEN [[place] 1 each PO Q6H PRN #8 tablet 04/25/17 Unknown Rx 5-325 Tablet] ALBUTEROL Inhaler [ProAir HFA 2 puff IH QID PRN #1 inhalation 05/23/17 Unknown Rx Inhaler] Ibuprofen [Motrin] 800 mg PO Q8HR PRN #30 tablet 05/23/17 Unknown Rx Inhaler, Assist Devices [Space 1 each MC PRN #1 spacer 05/23/17 Unknown Rx Chamber Plus] Ondansetron [Zofran Odt] 4 mg PO Q8HR #20 tab.rapdis 05/23/17 Unknown Rx predniSONE [Deltasone] 40 mg PO QDAY 5 Days tab 05/23/17 Unknown Rx traMADol [Ultram] 50 mg PO Q6HR PRN #20 tablet 05/23/17 Unknown Rx Nystas/Diphen/Xyl Visc/Mylanta 15 ml MM Q4H PRN 5 Days ml 07/27/17 Unknown Rx [Magic Mouthwash] Allergies Allergy/AdvReac Type Severity Reaction Status Date / Time cyclobenzaprine HCl Allergy Itching Verified 04/24/17 16:44 [From Flexeril] ED Review of Systems ROS: Stated complaint: THROAT PAIN Other details as noted in HPI Constitutional: denies: chills, fever Eyes: denies: eye pain, eye discharge, vision change ENT: throat pain. denies: ear pain Respiratory: denies: cough, shortness of breath, wheezing Cardiovascular: denies: chest pain, palpitations Endocrine: no symptoms reported Gastrointestinal: denies: abdominal pain, nausea, diarrhea Genitourinary: denies: urgency, dysuria, discharge Musculoskeletal: denies: back pain, joint swelling, arthralgia Skin: denies: rash, lesions Neurological: denies: headache, weakness, paresthesias Psychiatric: denies: anxiety, depression Hematological/Lymphatic: denies: easy bleeding, easy bruising ED Past Medical Hx - Past Medical History Hx Congestive Heart Failure: No Hx Diabetes: No Hx Asthma: No Hx COPD: No Additional medical history: History of ovarian cysts. History of pancreatitis - Surgical History Hx Cholecystectomy: Yes Additional Surgical History: tubal ligation. Right knee arthroscopy for mensical tear 12/01/13 - Social History Smoking Status: Current Every Day Smoker Substance Use Type: None - Medications Home Medications: Home Medications Medication Instructions Recorded Confirmed Last Taken Type oxyCODONE /ACETAMINOPHEN [Percocet 1 tab PO Q6HR PRN #10 tablet 04/25/14 Unknown Rx 5/325] Ciprofloxacin HCl [Cipro] 250 mg PO BID #6 tablet 10/16/14 Unknown Rx Ibuprofen [Motrin 800 MG tab] 800 mg PO TID PRN #30 tablet 10/16/14 Unknown Rx Methocarbamol [Robaxin] 750 mg PO BID #20 tab 10/16/14 Unknown Rx oxyCODONE /ACETAMINOPHEN [Percocet 1 tab PO Q6HR PRN #20 tablet 01/24/15 Unknown Rx 5/325 mg] Albuterol Sulfate [Ventolin HFA] 2 puff IH Q4H PRN #1 hfa.aer.ad 09/21/15 Unknown Rx Clarithromycin [Biaxin] 500 mg PO BID #20 tab 09/21/15 Unknown Rx predniSONE [Deltasone] 50 mg PO QDAY #5 tab 09/21/15 Unknown Rx traMADol [Ultram 50 MG tab] 50 mg PO Q6HR PRN #10 tablet 09/21/15 Unknown Rx Ibuprofen [Motrin] 800 mg PO Q8HR PRN #30 tablet 02/04/17 Unknown Rx Penicillin Vk [Veetids TAB] 500 mg PO BID #40 tablet 02/04/17 Unknown Rx HYDROcodone/ACETAMINOPHEN [[place] 1 each PO Q6H PRN #8 tablet 04/25/17 Unknown Rx 5-325 Tablet] ALBUTEROL Inhaler [ProAir HFA 2 puff IH QID PRN #1 inhalation 05/23/17 Unknown Rx Inhaler] Ibuprofen [Motrin] 800 mg PO Q8HR PRN #30 tablet 05/23/17 Unknown Rx Inhaler, Assist Devices [Space 1 each MC PRN #1 spacer 05/23/17 Unknown Rx Chamber Plus] Ondansetron [Zofran Odt] 4 mg PO Q8HR #20 tab.rapdis 05/23/17 Unknown Rx predniSONE [Deltasone] 40 mg PO QDAY 5 Days tab 05/23/17 Unknown Rx traMADol [Ultram] 50 mg PO Q6HR PRN #20 tablet 05/23/17 Unknown Rx Nystas/Diphen/Xyl Visc/Mylanta 15 ml MM Q4H PRN 5 Days ml 07/27/17 Unknown Rx [Magic Mouthwash] ED Physical Exam - General Limitations: No Limitations General appearance: alert, in no apparent distress - Head Head exam: Present: atraumatic, normocephalic - Eye Eye exam: Present: normal appearance - ENT ENT exam: Present: mucous membranes moist, TM's normal bilaterally, normal external ear exam - Expanded ENT Exam Expanded Ear exam: Present: normal external inspection Mouth exam: Present: normal external inspection, tongue normal. Absent: drooling, trismus, muffled voice, tongue elevation, laceration Teeth exam: Present: normal inspection Throat exam: Positive: normal inspection, other (no foreign bodies noted. uvula is midline. no abscess or swelling.). Negative: tonsillar erythema, tonsillomegaly, tonsillar exudate, R peritonsillar mass, L peritonsillar mass - Neck Neck exam: Present: normal inspection, full ROM. Absent: tenderness, meningismus, lymphadenopathy, thyromegaly - Respiratory Respiratory exam: Present: normal lung sounds bilaterally. Absent: respiratory distress - Cardiovascular Cardiovascular Exam: Present: regular rate, normal rhythm. Absent: systolic murmur, diastolic murmur, rubs, gallop - GI/Abdominal GI/Abdominal exam: Present: soft, normal bowel sounds - Extremities Exam Extremities exam: Present: normal inspection - Back Exam Back exam: Present: normal inspection - Neurological Exam Neurological exam: Present: alert, oriented X3 - Psychiatric Psychiatric exam: Present: normal affect, normal mood - Skin Skin exam: Present: warm, dry, intact, normal color. Absent: rash ED Course Vital Signs 07/27/17 14:35 Temperature 99.5 F Pulse Rate 85 Respiratory 18 Rate Blood Pressure 146/87 O2 Sat by Pulse 94 Oximetry - Reevaluation(s) Reevaluation #1: 07/27/17 18:14 Patient is speaking in full sentences with no signs of distress noted. - Consultations Consultation #1: 07/27/17 18:14 Patient has been consulted with Dr. Mccall about patient history, physical exam , and labs and examined and screened patient and agrees to ED plan of care and discharge plan of care. ED Medical Decision Making - Medical Decision Making 36-year-old female that presents with sore throat. Patient is stable and was examined by me. Xray obtained of neck soft tissue and negative as per radiologist. Patient is notified of xray results with no questions noted. Patient received lidocaine viscus in the ED which patient stated symptoms is improving and subsiding. Patient was instructed to Follow-up with a primary care doctor in 3-5 days or if symptoms worsen and continue return to emergency room as soon as possible. At time of discharge, the patient does not seem toxic or ill in appearance. No acute signs of distress noted. Patient agrees to discharge treatment plan of care. No further questions noted by the patient. Critical care attestation.: If time is entered above; I have spent that time in minutes in the direct care of this critically ill patient, excluding procedure time. ED Disposition Clinical Impression: Sore throat Disposition: [id number] TO HOME OR SELFCARE Is pt being admited?: No Does the pt Need Aspirin: No Condition: Stable Additional Instructions: Follow-up with a primary care doctor in 3-5 days or if symptoms worsen and continue return to emergency room as soon as possible. Prescriptions: Nystas/Diphen/Xyl Visc/Mylanta [Magic Mouthwash] 15 ml MM Q4H PRN 5 Days ml PRN Reason: Sore Throat Referrals: PRIMARY CAREMD [Primary Care Provider] - 3-5 Days KAIA TONY MD [Staff Physician] - 3-5 Days [facility] [Outside] - 3-5 Days Forms: Work/School Release Form(ED)
== END 2017-07-27 18:20 | disposition home or self-care (01) ==
LOC: ED 14:16
DX: J02.9 Acute pharyngitis, unspecified (principal); F17.200 Nicotine dependence, unspecified, uncomplicated; Z88.8 Allergy status to other drugs, medicaments and biological substances
CPT/HCPCS: 70360; 99283

== ENCOUNTER 2017-10-10 18:29 | Emergency (ER) | payer SELFPAY ==
[2017-10-10 18:38] VITALS: BP 122/49
--- NOTE | 2017-10-10 20:29 | Emergency Department Report ---
HPI - General Chief Complaint: Extremity Injury, Upper Time Seen by Provider: 10/10/17 20:23 - HPI HPI: Patient here reports that she is having pain in both her wrist area, hands and going up to her forearm. Bilaterally. She says she is also having allergic reaction from fruit juices while working at [employer]. She says she was exposed to different juice that she has small red spots that itching to her wrist and forearm. Patient denies any traumatic injury. She denies any respiratory involvement to include swelling that time, closing of the throat. Rash started yesterday. Patient says she has been given numbness and tingling in both her hands for a while. She has not followed up with primary care physician or nor has she been diagnosed with any nerve damage. Denies any fever or chills. Pain is worse with movement. Pain feels burning in and tingling. She says sometimes at night her fingers feel tingly. Pain is 6 out of 10 on an off. Worse with movement better with rest. 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 ED Past Medical Hx - Past Medical History Previous Medical History?: Yes Hx Congestive Heart Failure: No Hx Diabetes: No Hx Asthma: No Hx COPD: No Additional medical history: History of ovarian cysts. History of pancreatitis - Surgical History Past Surgical History?: Yes Hx Cholecystectomy: Yes Additional Surgical History: tubal ligation. Right knee arthroscopy for mensical tear 12/01/13 - Family History Family history: hypertension - Social History Smoking Status: Current Every Day Smoker Substance Use Type: None - Medications Home Medications: Home Medications Medication Instructions Recorded Confirmed Last Taken Type oxyCODONE /ACETAMINOPHEN [Percocet 1 tab PO Q6HR PRN #10 tablet 04/25/14 Unknown Rx 5/325] Ciprofloxacin HCl [Cipro] 250 mg PO BID #6 tablet 10/16/14 Unknown Rx Methocarbamol [Robaxin] 750 mg PO BID #20 tab 10/16/14 Unknown Rx oxyCODONE /ACETAMINOPHEN [Percocet 1 tab PO Q6HR PRN #20 tablet 01/24/15 Unknown Rx 5/325 mg] Albuterol Sulfate [Ventolin HFA] 2 puff IH Q4H PRN #1 hfa.aer.ad 09/21/15 Unknown Rx Clarithromycin [Biaxin] 500 mg PO BID #20 tab 09/21/15 Unknown Rx predniSONE [Deltasone] 50 mg PO QDAY #5 tab 09/21/15 Unknown Rx traMADol [Ultram 50 MG tab] 50 mg PO Q6HR PRN #10 tablet 09/21/15 Unknown Rx Ibuprofen [Motrin] 800 mg PO Q8HR PRN #30 tablet 02/04/17 Unknown Rx Penicillin Vk [Veetids TAB] 500 mg PO BID #40 tablet 02/04/17 Unknown Rx HYDROcodone/ACETAMINOPHEN [[place] 1 each PO Q6H PRN #8 tablet 04/25/17 Unknown Rx 5-325 Tablet] ALBUTEROL Inhaler [ProAir HFA 2 puff IH QID PRN #1 inhalation 05/23/17 Unknown Rx Inhaler] Ibuprofen [Motrin] 800 mg PO Q8HR PRN #30 tablet 05/23/17 Unknown Rx Inhaler, Assist Devices [Space 1 each MC PRN #1 spacer 05/23/17 Unknown Rx Chamber Plus] Ondansetron [Zofran Odt] 4 mg PO Q8HR #20 tab.rapdis 05/23/17 Unknown Rx predniSONE [Deltasone] 40 mg PO QDAY 5 Days tab 05/23/17 Unknown Rx traMADol [Ultram] 50 mg PO Q6HR PRN #20 tablet 05/23/17 Unknown Rx Nystas/Diphen/Xyl Visc/Mylanta 15 ml MM Q4H PRN 5 Days ml 07/27/17 Unknown Rx [Magic Mouthwash] Cetirizine HCl [ZyrTEC] 10 mg PO QAM 5 Days #5 capsule 10/10/17 Unknown Rx Ibuprofen [Motrin 800 MG tab] 800 mg PO Q8H PRN #12 tablet 10/10/17 Unknown Rx Prednisone 50 mg PO QAM 5 Days #5 tablet 10/10/17 Unknown Rx ED Review of Systems ROS: Stated complaint: ARM PAIN Other details as noted in HPI Comment: All other systems reviewed and negative Constitutional: no symptoms reported Respiratory: no symptoms reported Cardiovascular: denies: chest pain, palpitations, dyspnea on exertion, edema, syncope, paroxysmal nocturnal dyspnea Gastrointestinal: denies: abdominal pain, nausea, vomiting, diarrhea, constipation, hematemesis, melena, hematochezia Genitourinary: denies: dysuria, hematuria Musculoskeletal: arthralgia. denies: back pain, joint swelling, myalgia Skin: rash, pruritus Neurological: numbness, paresthesias. denies: headache, weakness, abnormal gait , vertigo Physical Exam - Physical Exam Vital Signs: Vital Signs 10/10/17 18:35 Temperature 98.7 F Pulse Rate 78 Respiratory 16 Rate Blood Pressure 122/49 O2 Sat by Pulse 97 Oximetry General: This is a 37-year-old female well-nourished well-developed in no acute distress. Physical Exam: Head: Normocephalic, atraumatic, no abrasion, no bruising and no contusion. Eyes: Biateral pupils equal and reactive to light, bilateral EOM intact.. Bilateral conjunctival and sclera without injection, normal accommodation. Mouth: Mucosa dry, no pharyngeal exudate or erythema. No peritonsillar abscesses. Uvula is midline and oral airways patent. Neck: Supple, No Cervical adenopathy, full range of motion and no C-spine tenderness. No swelling or tracheal deviation normal reflexes Cardiovascular: S1, S2. Regular rate and rhythm. No murmur. Capillary refill is less then 3 seconds. Lungs: Clear to auscultate bilaterally. No rhonchi, wheezes or rales. No chest wall tenderness. No chest contusion. No bruising to chest. MSK: Strength 5/5 in all extremities. No joint deformity or crepitus. Normal inspection. Full range of motion to all extremities. No laceration. Patient will be maculopapular rash to right forearm distally. Abdomen: Non-tender to palpate in all quadrants, no guarding or rebound tenderness, positive bowel sounds in all quadrants. No CVA tenderness. No hernia, bruit or mass. No rigidity or distention. Extremities: No clubbing, cyanosis or edema. +2 pulses. No neurovascular compromise Skin: Patient with maculopapular rash sparsely scattered to right forearm, distally. Neurological: GCS at 15, Pt is alert and oriented 3 speech is clear . 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 Normal gait. Negative Normal Reflexes. No motor or sensory deficit Psych: Normal mood and behavior ED Course Vital Signs 10/10/17 18:35 Temperature 98.7 F Pulse Rate 78 Respiratory 16 Rate Blood Pressure 122/49 O2 Sat by Pulse 97 Oximetry - Reevaluation(s) Reevaluation #1: 10/10/17 21:10 Patient received Decadron 10 mg IM and Toradol 60 mg IM in emergency room. See procedure note for wrist splint and - Orthopedic Splinting/Casting Injury #1 Side: left Upper Extremity Injury Location: wrist Upper Extremity Immobilizer: wrist splint Additional Comments: Patient with good color, movement, sensation and temperature finger status post splint placement. Injury #2 Side: right Upper Extremity Injury Location: wrist Upper Extremity Immobilizer: wrist splint Additional Comments: Patient with good color, sensation, movement and temperature the fingers and first status post splint placement ED Medical Decision Making - Medical Decision Making ED course: Patient here reports that she has bilateral wrist and hand pain that comes and goes. Pain is tingling and numbness and sometimes worse at night. She denies any injury. Patient with good neurovascular status. She has full range of motion to all her joints including wrists and fingers of both hands. She has no signs of erythema .no motor or sensory deficits noted. Also complaining of allergic reaction to her right arm from exposure to substance from work. She was found to have maculopapular rash versus scattered to right forearm distally. She was given Toradol 60 mg IM for pain and Decadron 10 mg IM which will cover nerve pain and rash. I discussed the patient that she more than likely have carpal tunnel syndrome from repetitive movements and also she has contact dermatitis and I cannot tell her what she is allergic to she would have to go to race car mechanic to get skin testing. Patient is stable and her pain control, rashes subsided. Itching is better. Patient discharged home and referred to neurologist and orthopedic doctor. I also referred her to use outside Medical Center as it seems as she does not have a primary care doctor. Discharge home with prescription for Motrin, please refer to discharge instruction paperwork for details on splinted. She is also given prednisone, Zyrtec to help with tendonopathy and allergic rash Critical care attestation.: If time is entered above; I have spent that time in minutes in the direct care of this critically ill patient, excluding procedure time. ED Disposition Clinical Impression: Numbness or tingling, Neuralgia of upper extremity Wrist arthralgia Qualifiers: Laterality: bilateral Qualified Code(s): M25.531 - Pain in right wrist; M25.532 - Pain in left wrist Contact dermatitis Qualifiers: Contact dermatitis type: allergic Contact dermatitis trigger: other trigger Qualified Code(s): L23.89 - Allergic contact dermatitis due to other agents; L23.8 - Allergic contact dermatitis due to other agents Disposition: DC-01 TO HOME OR SELFCARE Is pt being admited?: No Does the pt Need Aspirin: No Condition: Stable Instructions: Paresthesia (ED), Musculoskeletal Pain (ED), Carpal Tunnel Syndrome (ED), Contact Dermatitis (ED) Additional Instructions: Please follow up with orthopedic doctor regarding in continuous numbness and tingling to your hands and wrist. Please see discharge instruction and carpal tunnel syndrome. Prednisone and this will help with pain in your wrist and hands and also will help with contact dermatitis which is rash from allergy Take Zyrtec for itching daily Take Motrin and this will help with the pain. Wear wrist splint for most of the day especially when working and this will help with immobilization and decrease in pain. You will probably need to have nerve conduction tests secondary ordered outpatient by primary care physician. If you do not have a primary care physician, follow-up with outside Medical Center Prescriptions: Cetirizine HCl [ZyrTEC] 10 mg PO QAM 5 Days #5 capsule Ibuprofen [Motrin 800 MG tab] 800 mg PO Q8H PRN #12 tablet PRN Reason: Pain Prednisone 50 mg PO QAM 5 Days #5 tablet Referrals: PRIMARY CARE [Primary Care Provider] - 10/12/17 [facility] [Outside] - 10/12/17 Forms: Work/School Release Form(ED)
[2017-10-10] MEDS ORDERED: DECADRON IM STA (20:37)
[2017-10-10] MEDS ORDERED: TORADOL IM ONE (20:38)
== END 2017-10-10 21:34 | disposition home or self-care (01) ==
LOC: ED 18:29
DX: M25.531 Pain in right wrist (principal); M25.532 Pain in left wrist; L23.89 Allergic contact dermatitis due to other agents; F17.200 Nicotine dependence, unspecified, uncomplicated; Z90.49 Acquired absence of other specified parts of digestive tract; Z98.51 Tubal ligation status
CPT/HCPCS: 29125; 96372; 99282; J1100; J1885

== ENCOUNTER 2017-11-25 10:12 | Emergency (ER) | payer SELFPAY ==
--- NOTE | 2017-11-25 12:46 | Emergency Department Report ---
ED Asthma HPI - General Chief Complaint: Adult Asthma Stated Complaint: ASTHMA Time Seen by Provider: 11/25/17 12:35 Source: patient Mode of arrival: Ambulatory Limitations: No Limitations - History of Present Illness Initial Comments: Ms. Kaplan has hx of asthma and tobacco abuse. She has chest congestion, cough and dyspnea since last night. No pain. No wheezing. Needs asthma medications. MD Complaint: shortness of breath, other (cough) -: Gradual, Last night Severity: mild Context: ran out of meds Associated Symptoms: productive cough. denies: fever, chest pain, hemoptysis, leg edema, syncope Treatments Prior to Arrival: other (none) - Related Data Previous Rx's Medication Instructions Recorded Last Taken Type oxyCODONE /ACETAMINOPHEN [Percocet 1 tab PO Q6HR PRN #10 tablet 04/25/14 Unknown Rx 5/325] Ciprofloxacin HCl [Cipro] 250 mg PO BID #6 tablet 10/16/14 Unknown Rx Methocarbamol [Robaxin] 750 mg PO BID #20 tab 10/16/14 Unknown Rx oxyCODONE /ACETAMINOPHEN [Percocet 1 tab PO Q6HR PRN #20 tablet 01/24/15 Unknown Rx 5/325 mg] Albuterol Sulfate [Ventolin HFA] 2 puff IH Q4H PRN #1 hfa.aer.ad 09/21/15 Unknown Rx Clarithromycin [Biaxin] 500 mg PO BID #20 tab 09/21/15 Unknown Rx predniSONE [Deltasone] 50 mg PO QDAY #5 tab 09/21/15 Unknown Rx traMADol [Ultram 50 MG tab] 50 mg PO Q6HR PRN #10 tablet 09/21/15 Unknown Rx Ibuprofen [Motrin] 800 mg PO Q8HR PRN #30 tablet 02/04/17 Unknown Rx Penicillin Vk [Veetids TAB] 500 mg PO BID #40 tablet 02/04/17 Unknown Rx HYDROcodone/ACETAMINOPHEN [[place] 1 each PO Q6H PRN #8 tablet 04/25/17 Unknown Rx 5-325 Tablet] ALBUTEROL Inhaler [ProAir HFA 2 puff IH QID PRN #1 inhalation 05/23/17 Unknown Rx Inhaler] Ibuprofen [Motrin] 800 mg PO Q8HR PRN #30 tablet 05/23/17 Unknown Rx Inhaler, Assist Devices [Space 1 each MC PRN #1 spacer 05/23/17 Unknown Rx Chamber Plus] Ondansetron [Zofran Odt] 4 mg PO Q8HR #20 tab.rapdis 05/23/17 Unknown Rx predniSONE [Deltasone] 40 mg PO QDAY 5 Days tab 05/23/17 Unknown Rx traMADol [Ultram] 50 mg PO Q6HR PRN #20 tablet 05/23/17 Unknown Rx Nystas/Diphen/Xyl Visc/Mylanta 15 ml MM Q4H PRN 5 Days ml 07/27/17 Unknown Rx [Magic Mouthwash] Cetirizine HCl [ZyrTEC] 10 mg PO QAM 5 Days #5 capsule 10/10/17 Unknown Rx Ibuprofen [Motrin 800 MG tab] 800 mg PO Q8H PRN #12 tablet 10/10/17 Unknown Rx Prednisone 50 mg PO QAM 5 Days #5 tablet 10/10/17 Unknown Rx ALBUTEROL Inhaler [ProAir HFA 2 puff IH QID PRN #1 inhalation 11/25/17 Unknown Rx Inhaler] predniSONE [Deltasone] 3 tab PO DAILY 5 Days #15 tablet 11/25/17 Unknown Rx Allergies Allergy/AdvReac Type Severity Reaction Status Date / Time cyclobenzaprine HCl Allergy Itching Verified 04/24/17 16:44 [From Flexeril] ED Review of Systems ROS: Stated complaint: ASTHMA Other details as noted in HPI Comment: All other systems reviewed and negative Constitutional: no symptoms reported Respiratory: cough Cardiovascular: denies: chest pain Gastrointestinal: denies: abdominal pain, nausea, vomiting ED Past Medical Hx - Past Medical History Hx Congestive Heart Failure: No Hx Diabetes: No Hx Asthma: Yes Hx COPD: No Additional medical history: History of ovarian cysts. History of pancreatitis - Surgical History Hx Cholecystectomy: Yes Additional Surgical History: tubal ligation. Right knee arthroscopy for mensical tear 12/01/13 - Social History Smoking Status: Current Every Day Smoker Substance Use Type: None - Medications Home Medications: Home Medications Medication Instructions Recorded Confirmed Last Taken Type oxyCODONE /ACETAMINOPHEN [Percocet 1 tab PO Q6HR PRN #10 tablet 04/25/14 Unknown Rx 5/325] Ciprofloxacin HCl [Cipro] 250 mg PO BID #6 tablet 10/16/14 Unknown Rx Methocarbamol [Robaxin] 750 mg PO BID #20 tab 10/16/14 Unknown Rx oxyCODONE /ACETAMINOPHEN [Percocet 1 tab PO Q6HR PRN #20 tablet 01/24/15 Unknown Rx 5/325 mg] Albuterol Sulfate [Ventolin HFA] 2 puff IH Q4H PRN #1 hfa.aer.ad 09/21/15 Unknown Rx Clarithromycin [Biaxin] 500 mg PO BID #20 tab 09/21/15 Unknown Rx predniSONE [Deltasone] 50 mg PO QDAY #5 tab 09/21/15 Unknown Rx traMADol [Ultram 50 MG tab] 50 mg PO Q6HR PRN #10 tablet 09/21/15 Unknown Rx Ibuprofen [Motrin] 800 mg PO Q8HR PRN #30 tablet 02/04/17 Unknown Rx Penicillin Vk [Veetids TAB] 500 mg PO BID #40 tablet 02/04/17 Unknown Rx HYDROcodone/ACETAMINOPHEN [[place] 1 each PO Q6H PRN #8 tablet 04/25/17 Unknown Rx 5-325 Tablet] ALBUTEROL Inhaler [ProAir HFA 2 puff IH QID PRN #1 inhalation 05/23/17 Unknown Rx Inhaler] Ibuprofen [Motrin] 800 mg PO Q8HR PRN #30 tablet 05/23/17 Unknown Rx Inhaler, Assist Devices [Space 1 each MC PRN #1 spacer 05/23/17 Unknown Rx Chamber Plus] Ondansetron [Zofran Odt] 4 mg PO Q8HR #20 tab.rapdis 05/23/17 Unknown Rx predniSONE [Deltasone] 40 mg PO QDAY 5 Days tab 05/23/17 Unknown Rx traMADol [Ultram] 50 mg PO Q6HR PRN #20 tablet 05/23/17 Unknown Rx Nystas/Diphen/Xyl Visc/Mylanta 15 ml MM Q4H PRN 5 Days ml 07/27/17 Unknown Rx [Magic Mouthwash] Cetirizine HCl [ZyrTEC] 10 mg PO QAM 5 Days #5 capsule 10/10/17 Unknown Rx Ibuprofen [Motrin 800 MG tab] 800 mg PO Q8H PRN #12 tablet 10/10/17 Unknown Rx Prednisone 50 mg PO QAM 5 Days #5 tablet 10/10/17 Unknown Rx ALBUTEROL Inhaler [ProAir HFA 2 puff IH QID PRN #1 inhalation 11/25/17 Unknown Rx Inhaler] predniSONE [Deltasone] 3 tab PO DAILY 5 Days #15 tablet 11/25/17 Unknown Rx ED Physical Exam - General Limitations: No Limitations General appearance: alert, in no apparent distress, other (frequent cough) - Head Head exam: Present: atraumatic, normocephalic - Eye Eye exam: Present: normal appearance - ENT ENT exam: Present: mucous membranes moist - Neck Neck exam: Present: normal inspection. Absent: meningismus - Respiratory Respiratory exam: Present: normal lung sounds bilaterally. Absent: respiratory distress, wheezes, rales, rhonchi - Cardiovascular Cardiovascular Exam: Present: regular rate, normal rhythm, normal heart sounds. Absent: systolic murmur, diastolic murmur, rubs, gallop - GI/Abdominal GI/Abdominal exam: Present: soft, normal bowel sounds. Absent: distended, tenderness, guarding, rebound - Extremities Exam Extremities exam: Present: normal inspection - Back Exam Back exam: Present: normal inspection - Neurological Exam Neurological exam: Present: alert, oriented X3 - Psychiatric Psychiatric exam: Present: normal affect, normal mood - Skin Skin exam: Present: warm, dry, intact, normal color. Absent: rash ED Course Vital Signs 11/25/17 10:20 Temperature 98.2 F Pulse Rate 97 H Respiratory 18 Rate Blood Pressure 132/87 O2 Sat by Pulse 97 Oximetry ED Medical Decision Making - Medical Decision Making Ms. Kaplan presents with mild asthma exacerbation. Rx: albuterol MDI and prednisone burst therapy referred to clinic Critical care attestation.: If time is entered above; I have spent that time in minutes in the direct care of this critically ill patient, excluding procedure time. ED Disposition Clinical Impression: Asthma exacerbation, Tobacco abuse Disposition: DC-01 TO HOME OR SELFCARE Is pt being admited?: No Does the pt Need Aspirin: No Condition: Stable Instructions: How to Stop Smoking (ED) Prescriptions: ALBUTEROL Inhaler [ProAir HFA Inhaler] 2 puff IH QID PRN #1 inhalation PRN Reason: Shortness Of Breath predniSONE [Deltasone] 3 tab PO DAILY 5 Days #15 tablet Referrals: PRIMARY CARE, [Primary Care Provider] - 3-5 Days Time of Disposition: 12:41
[2017-11-25 12:51] VITALS: BP 136/72
== END 2017-11-25 12:48 | disposition home or self-care (01) ==
LOC: ED 10:12
DX: J45.901 Unspecified asthma with (acute) exacerbation (principal); F17.200 Nicotine dependence, unspecified, uncomplicated; Z98.51 Tubal ligation status
CPT/HCPCS: 99282

== ENCOUNTER 2018-01-26 09:18 | Emergency (ER) | payer SELFPAY ==
[2018-01-26] MEDS ORDERED: NORCO 5/325 PO ONE (11:32)
[2018-01-26] MEDS ORDERED: PROVENTIL IH ONE (11:32)
[2018-01-26] MEDS ORDERED: ATROVENT IH ONE (11:32)
[2018-01-26] MEDS ORDERED: TORADOL IM ONE (11:32)
[2018-01-26] MEDS ORDERED: DELTASONE PO ONE (11:32)
--- NOTE | 2018-01-26 11:36 | Emergency Department Report ---
Blank Doc - Documentation Documentation: 37-year-old female with a past medical history of asthma presents to the hospital complaining of dry cough, wheezing, shortness breath, and chest pain. Patient has pain to her right posterior thorax and anterior chest. Worse palpation, movement, and deep inspiration. She complains of associated shortness of breath and wheeze not improved with inhaler this a.m. She denies recent travel or control use. History of tubal ligation. Patient has reproducible right-sided posterior thorax chest pain and states she cannot lay on her right side secondary to pain Lungs sounds diminished without audible wheezing the patient feels like breathing treatment EKG is normal sinus rhythm without ST elevation or T-wave inversion Nebs, prednisone, [place], and Toradol ordered Chest x-ray pending Mid-level to follow
[2018-01-26 13:14] LABS: Basophils % (Auto) 0.6 % (0.0-1.8); Eosinophils # (Auto) 0.1 K/mm3 (0.0-0.4); Eosinophils % (Auto) 2.3 % (0.0-4.3); Hematocrit 41.1 % (30.3-42.9); Hemoglobin 13.7 gm/dl (10.1-14.3); Lymphocytes # (Auto) 1.3 K/mm3 (1.2-5.4); Lymphocytes % (Auto) 20.2 % (13.4-35.0); Mean Corpuscular HGB Conc 33 % (30-34); Mean Corpuscular Hemoglobin 31 pg (28-32); Mean Corpuscular Volume 92 fl (79-97); Monocytes # (Auto) 0.4 K/mm3 (0.0-0.8); Monocytes % (Auto) 5.8 % (0.0-7.3); Platelet Count 226 K/mm3 (140-440); Red Blood Count 4.48 M/mm3 (3.65-5.03); Red Cell Distribution Width 13.4 % (13.2-15.2)
--- NOTE | 2018-01-26 13:26 | Emergency Department Report ---
- General Chief Complaint: Upper Respiratory Infection Stated Complaint: SOB Time Seen by Provider: 01/26/18 11:07 Source: patient Mode of arrival: Ambulatory Limitations: No Limitations - Related Data Previous Rx's Medication Instructions Recorded Last Taken Type oxyCODONE /ACETAMINOPHEN [Percocet 1 tab PO Q6HR PRN #10 tablet 04/25/14 Unknown Rx 5/325] Ciprofloxacin HCl [Cipro] 250 mg PO BID #6 tablet 10/16/14 Unknown Rx Methocarbamol [Robaxin] 750 mg PO BID #20 tab 10/16/14 Unknown Rx oxyCODONE /ACETAMINOPHEN [Percocet 1 tab PO Q6HR PRN #20 tablet 01/24/15 Unknown Rx 5/325 mg] Albuterol Sulfate [Ventolin HFA] 2 puff IH Q4H PRN #1 hfa.aer.ad 09/21/15 Unknown Rx Clarithromycin [Biaxin] 500 mg PO BID #20 tab 09/21/15 Unknown Rx predniSONE [Deltasone] 50 mg PO QDAY #5 tab 09/21/15 Unknown Rx traMADol [Ultram 50 MG tab] 50 mg PO Q6HR PRN #10 tablet 09/21/15 Unknown Rx Ibuprofen [Motrin] 800 mg PO Q8HR PRN #30 tablet 02/04/17 Unknown Rx Penicillin Vk [Veetids TAB] 500 mg PO BID #40 tablet 02/04/17 Unknown Rx HYDROcodone/ACETAMINOPHEN [[place] 1 each PO Q6H PRN #8 tablet 04/25/17 Unknown Rx 5-325 Tablet] ALBUTEROL Inhaler [ProAir HFA 2 puff IH QID PRN #1 inhalation 05/23/17 Unknown Rx Inhaler] Ibuprofen [Motrin] 800 mg PO Q8HR PRN #30 tablet 05/23/17 Unknown Rx Inhaler, Assist Devices [Space 1 each MC PRN #1 spacer 05/23/17 Unknown Rx Chamber Plus] Ondansetron [Zofran Odt] 4 mg PO Q8HR #20 tab.rapdis 05/23/17 Unknown Rx predniSONE [Deltasone] 40 mg PO QDAY 5 Days tab 05/23/17 Unknown Rx traMADol [Ultram] 50 mg PO Q6HR PRN #20 tablet 05/23/17 Unknown Rx Nystas/Diphen/Xyl Visc/Mylanta 15 ml MM Q4H PRN 5 Days ml 07/27/17 Unknown Rx [Magic Mouthwash] Cetirizine HCl [ZyrTEC] 10 mg PO QAM 5 Days #5 capsule 10/10/17 Unknown Rx Ibuprofen [Motrin 800 MG tab] 800 mg PO Q8H PRN #12 tablet 10/10/17 Unknown Rx predniSONE [Prednisone] 50 mg PO QAM 5 Days #5 tablet 10/10/17 Unknown Rx ALBUTEROL Inhaler [ProAir HFA 2 puff IH QID PRN #1 inhalation 11/25/17 Unknown Rx Inhaler] predniSONE [Deltasone] 3 tab PO DAILY 5 Days #15 tablet 11/25/17 Unknown Rx Allergies Allergy/AdvReac Type Severity Reaction Status Date / Time cyclobenzaprine HCl Allergy Itching Verified 04/24/17 16:44 [From Flexeril] trazodone Allergy Itching Verified 01/26/18 09:29 ED Review of Systems ROS: Stated complaint: SOB Other details as noted in HPI ED Past Medical Hx - Past Medical History Hx Congestive Heart Failure: No Hx Diabetes: No Hx Asthma: Yes Hx COPD: No Additional medical history: History of ovarian cysts. History of pancreatitis - Surgical History Hx Cholecystectomy: Yes Additional Surgical History: tubal ligation. Right knee arthroscopy for mensical tear 12/01/13 - Social History Smoking Status: Current Every Day Smoker Substance Use Type: None - Medications Home Medications: Home Medications Medication Instructions Recorded Confirmed Last Taken Type oxyCODONE /ACETAMINOPHEN [Percocet 1 tab PO Q6HR PRN #10 tablet 04/25/14 Unknown Rx 5/325] Ciprofloxacin HCl [Cipro] 250 mg PO BID #6 tablet 10/16/14 Unknown Rx Methocarbamol [Robaxin] 750 mg PO BID #20 tab 10/16/14 Unknown Rx oxyCODONE /ACETAMINOPHEN [Percocet 1 tab PO Q6HR PRN #20 tablet 01/24/15 Unknown Rx 5/325 mg] Albuterol Sulfate [Ventolin HFA] 2 puff IH Q4H PRN #1 hfa.aer.ad 09/21/15 Unknown Rx Clarithromycin [Biaxin] 500 mg PO BID #20 tab 09/21/15 Unknown Rx predniSONE [Deltasone] 50 mg PO QDAY #5 tab 09/21/15 Unknown Rx traMADol [Ultram 50 MG tab] 50 mg PO Q6HR PRN #10 tablet 09/21/15 Unknown Rx Ibuprofen [Motrin] 800 mg PO Q8HR PRN #30 tablet 02/04/17 Unknown Rx Penicillin Vk [Veetids TAB] 500 mg PO BID #40 tablet 02/04/17 Unknown Rx HYDROcodone/ACETAMINOPHEN [[place] 1 each PO Q6H PRN #8 tablet 04/25/17 Unknown Rx 5-325 Tablet] ALBUTEROL Inhaler [ProAir HFA 2 puff IH QID PRN #1 inhalation 05/23/17 Unknown Rx Inhaler] Ibuprofen [Motrin] 800 mg PO Q8HR PRN #30 tablet 05/23/17 Unknown Rx Inhaler, Assist Devices [Space 1 each MC PRN #1 spacer 05/23/17 Unknown Rx Chamber Plus] Ondansetron [Zofran Odt] 4 mg PO Q8HR #20 tab.rapdis 05/23/17 Unknown Rx predniSONE [Deltasone] 40 mg PO QDAY 5 Days tab 05/23/17 Unknown Rx traMADol [Ultram] 50 mg PO Q6HR PRN #20 tablet 05/23/17 Unknown Rx Nystas/Diphen/Xyl Visc/Mylanta 15 ml MM Q4H PRN 5 Days ml 07/27/17 Unknown Rx [Magic Mouthwash] Cetirizine HCl [ZyrTEC] 10 mg PO QAM 5 Days #5 capsule 10/10/17 Unknown Rx Ibuprofen [Motrin 800 MG tab] 800 mg PO Q8H PRN #12 tablet 10/10/17 Unknown Rx predniSONE [Prednisone] 50 mg PO QAM 5 Days #5 tablet 10/10/17 Unknown Rx ALBUTEROL Inhaler [ProAir HFA 2 puff IH QID PRN #1 inhalation 11/25/17 Unknown Rx Inhaler] predniSONE [Deltasone] 3 tab PO DAILY 5 Days #15 tablet 11/25/17 Unknown Rx ED Physical Exam - General Limitations: No Limitations ED Course Vital Signs 01/26/18 01/26/18 01/26/18 09:29 11:48 12:18 Temperature 98.2 F Pulse Rate 87 Respiratory 20 19 16 Rate Blood Pressure 145/88 O2 Sat by Pulse 98 Oximetry 01/26/18 12:48 Temperature Pulse Rate Respiratory 16 Rate Blood Pressure O2 Sat by Pulse Oximetry ED Medical Decision Making - Lab Data Result diagrams: 01/26/18 12:59 Critical care attestation.: If time is entered above; I have spent that time in minutes in the direct care of this critically ill patient, excluding procedure time. ED Disposition Condition: Stable Referrals: PRIMARY CARE,MD [Primary Care Provider] - 3-5 Days
--- NOTE | 2018-01-26 13:53 | Emergency Department Report ---
ED Chest Pain HPI - General Chief Complaint: Upper Respiratory Infection Stated Complaint: SOB Time Seen by Provider: 01/26/18 11:07 Source: patient Mode of arrival: Ambulatory Limitations: No Limitations - History of Present Illness Initial Comments: This is a 37-year-old female nontoxic, well nourished in appearance, no acute signs of distress presents to the ED with c/o of right-sided chest pain, dry cough, wheezing, and shortness of breathe x2 days. Patient denies any radiation of pain. Patient describes pain as aching and mainly during deep inspiration and palpation. Patient denies any other upper respiratory symptoms. Patient denies any hemoptysis, fever, chills, nausea, vomiting, headache, stiff neck, numbness, tingling, abdominal pain. Patient denies pleuritic chest pain. Patient denies any recent travels or long car rides. Patient denies any recent surgeries or any sick contacts. MD Complaint: chest pain Pain Location: substernal Pain Radiation: none Severity: mild Severity scale (0 -10): 3 Quality: aching Consistency: intermittent Improves With: rest Worsens With: inspiration, palpation re: denies: nausea, vomting, diaphoresis, dyspnea, sense of impending doom Other Symptoms: cough. denies: fever, syncope, rash, acid taste in mouth, leg swelling, palpitations, burping Treatments Prior to Arrival: none Aspirin use within the Past 7 Days: (0) No - Related Data On Oral Contraceptives: No Previous Rx's Medication Instructions Recorded Last Taken Type oxyCODONE /ACETAMINOPHEN [Percocet 1 tab PO Q6HR PRN #10 tablet 04/25/14 Unknown Rx 5/325] Ciprofloxacin HCl [Cipro] 250 mg PO BID #6 tablet 10/16/14 Unknown Rx Methocarbamol [Robaxin] 750 mg PO BID #20 tab 10/16/14 Unknown Rx oxyCODONE /ACETAMINOPHEN [Percocet 1 tab PO Q6HR PRN #20 tablet 01/24/15 Unknown Rx 5/325 mg] Albuterol Sulfate [Ventolin HFA] 2 puff IH Q4H PRN #1 hfa.aer.ad 09/21/15 Unknown Rx Clarithromycin [Biaxin] 500 mg PO BID #20 tab 09/21/15 Unknown Rx predniSONE [Deltasone] 50 mg PO QDAY #5 tab 09/21/15 Unknown Rx traMADol [Ultram 50 MG tab] 50 mg PO Q6HR PRN #10 tablet 09/21/15 Unknown Rx Ibuprofen [Motrin] 800 mg PO Q8HR PRN #30 tablet 02/04/17 Unknown Rx Penicillin Vk [Veetids TAB] 500 mg PO BID #40 tablet 02/04/17 Unknown Rx HYDROcodone/ACETAMINOPHEN [[place] 1 each PO Q6H PRN #8 tablet 04/25/17 Unknown Rx 5-325 Tablet] ALBUTEROL Inhaler [ProAir HFA 2 puff IH QID PRN #1 inhalation 05/23/17 Unknown Rx Inhaler] Ibuprofen [Motrin] 800 mg PO Q8HR PRN #30 tablet 05/23/17 Unknown Rx Inhaler, Assist Devices [Space 1 each MC PRN #1 spacer 05/23/17 Unknown Rx Chamber Plus] Ondansetron [Zofran Odt] 4 mg PO Q8HR #20 tab.rapdis 05/23/17 Unknown Rx predniSONE [Deltasone] 40 mg PO QDAY 5 Days tab 05/23/17 Unknown Rx traMADol [Ultram] 50 mg PO Q6HR PRN #20 tablet 05/23/17 Unknown Rx Nystas/Diphen/Xyl Visc/Mylanta 15 ml MM Q4H PRN 5 Days ml 07/27/17 Unknown Rx [Magic Mouthwash] Cetirizine HCl [ZyrTEC] 10 mg PO QAM 5 Days #5 capsule 10/10/17 Unknown Rx Ibuprofen [Motrin 800 MG tab] 800 mg PO Q8H PRN #12 tablet 10/10/17 Unknown Rx predniSONE [Prednisone] 50 mg PO QAM 5 Days #5 tablet 10/10/17 Unknown Rx ALBUTEROL Inhaler [ProAir HFA 2 puff IH QID PRN #1 inhalation 11/25/17 Unknown Rx Inhaler] predniSONE [Deltasone] 3 tab PO DAILY 5 Days #15 tablet 11/25/17 Unknown Rx ALBUTEROL Inhaler [ProAir HFA 2 puff IH QID PRN #1 inhalation 01/26/18 Unknown Rx Inhaler] Prednisone [predniSONE 10 mg 10 mg PO .TAPER #1 tab.ds.pk 01/26/18 Unknown Rx (6-Day Pack, 21 Tabs)] Allergies Allergy/AdvReac Type Severity Reaction Status Date / Time cyclobenzaprine HCl Allergy Itching Verified 04/24/17 16:44 [From Flexeril] trazodone Allergy Itching Verified 01/26/18 09:29 Heart Score - HEART Score History: Slightly suspicious EKG: Normal Age: < 45 Risk factors: No known risk factors Troponin: < normal limit HEART Score: 0 ED Review of Systems ROS: Stated complaint: SOB Other details as noted in HPI Constitutional: denies: chills, fever Eyes: denies: eye pain, eye discharge, vision change ENT: denies: ear pain, throat pain Respiratory: cough, shortness of breath, wheezing Cardiovascular: chest pain. denies: palpitations Endocrine: no symptoms reported Gastrointestinal: denies: abdominal pain, nausea, vomiting, diarrhea Genitourinary: denies: urgency, dysuria, discharge Musculoskeletal: denies: back pain, joint swelling, arthralgia Skin: denies: rash, lesions Neurological: denies: headache, weakness, paresthesias Psychiatric: denies: anxiety, depression Hematological/Lymphatic: denies: easy bleeding, easy bruising ED Past Medical Hx - Past Medical History Hx Congestive Heart Failure: No Hx Diabetes: No Hx Asthma: Yes Hx COPD: No Additional medical history: History of ovarian cysts. History of pancreatitis - Surgical History Hx Cholecystectomy: Yes Additional Surgical History: tubal ligation. Right knee arthroscopy for mensical tear 12/01/13 - Social History Smoking Status: Current Every Day Smoker Substance Use Type: None - Medications Home Medications: Home Medications Medication Instructions Recorded Confirmed Last Taken Type oxyCODONE /ACETAMINOPHEN [Percocet 1 tab PO Q6HR PRN #10 tablet 04/25/14 Unknown Rx 5/325] Ciprofloxacin HCl [Cipro] 250 mg PO BID #6 tablet 10/16/14 Unknown Rx Methocarbamol [Robaxin] 750 mg PO BID #20 tab 10/16/14 Unknown Rx oxyCODONE /ACETAMINOPHEN [Percocet 1 tab PO Q6HR PRN #20 tablet 01/24/15 Unknown Rx 5/325 mg] Albuterol Sulfate [Ventolin HFA] 2 puff IH Q4H PRN #1 hfa.aer.ad 09/21/15 Unknown Rx Clarithromycin [Biaxin] 500 mg PO BID #20 tab 09/21/15 Unknown Rx predniSONE [Deltasone] 50 mg PO QDAY #5 tab 09/21/15 Unknown Rx traMADol [Ultram 50 MG tab] 50 mg PO Q6HR PRN #10 tablet 09/21/15 Unknown Rx Ibuprofen [Motrin] 800 mg PO Q8HR PRN #30 tablet 02/04/17 Unknown Rx Penicillin Vk [Veetids TAB] 500 mg PO BID #40 tablet 02/04/17 Unknown Rx HYDROcodone/ACETAMINOPHEN [[place] 1 each PO Q6H PRN #8 tablet 04/25/17 Unknown Rx 5-325 Tablet] ALBUTEROL Inhaler [ProAir HFA 2 puff IH QID PRN #1 inhalation 05/23/17 Unknown Rx Inhaler] Ibuprofen [Motrin] 800 mg PO Q8HR PRN #30 tablet 05/23/17 Unknown Rx Inhaler, Assist Devices [Space 1 each MC PRN #1 spacer 05/23/17 Unknown Rx Chamber Plus] Ondansetron [Zofran Odt] 4 mg PO Q8HR #20 tab.rapdis 05/23/17 Unknown Rx predniSONE [Deltasone] 40 mg PO QDAY 5 Days tab 05/23/17 Unknown Rx traMADol [Ultram] 50 mg PO Q6HR PRN #20 tablet 05/23/17 Unknown Rx Nystas/Diphen/Xyl Visc/Mylanta 15 ml MM Q4H PRN 5 Days ml 07/27/17 Unknown Rx [Magic Mouthwash] Cetirizine HCl [ZyrTEC] 10 mg PO QAM 5 Days #5 capsule 10/10/17 Unknown Rx Ibuprofen [Motrin 800 MG tab] 800 mg PO Q8H PRN #12 tablet 10/10/17 Unknown Rx predniSONE [Prednisone] 50 mg PO QAM 5 Days #5 tablet 10/10/17 Unknown Rx ALBUTEROL Inhaler [ProAir HFA 2 puff IH QID PRN #1 inhalation 11/25/17 Unknown Rx Inhaler] predniSONE [Deltasone] 3 tab PO DAILY 5 Days #15 tablet 11/25/17 Unknown Rx ALBUTEROL Inhaler [ProAir HFA 2 puff IH QID PRN #1 inhalation 01/26/18 Unknown Rx Inhaler] Prednisone [predniSONE 10 mg 10 mg PO .TAPER #1 tab.ds.pk 01/26/18 Unknown Rx (6-Day Pack, 21 Tabs)] ED Physical Exam - General Limitations: No Limitations General appearance: alert, in no apparent distress - Head Head exam: Present: atraumatic, normocephalic - Eye Eye exam: Present: normal appearance Pupils: Present: normal accommodation - ENT ENT exam: Present: normal exam, mucous membranes moist - Neck Neck exam: Present: normal inspection, full ROM. Absent: tenderness, meningismus, lymphadenopathy - Respiratory Respiratory exam: Present: normal lung sounds bilaterally, chest wall tenderness , decreased breath sounds (denies breath sounds primarily in her right upper mid lobes), other. Absent: respiratory distress, wheezes, rales, rhonchi, stridor, accessory muscle use, prolonged expiratory - Cardiovascular Cardiovascular Exam: Present: regular rate, normal rhythm, normal heart sounds. Absent: bradycardia, tachycardia, irregular rhythm, systolic murmur, diastolic murmur, rubs, gallop - GI/Abdominal GI/Abdominal exam: Present: soft, normal bowel sounds. Absent: distended, tenderness, guarding, rebound, rigid - Rectal Rectal exam: Present: deferred - Extremities Exam Extremities exam: Present: normal inspection, full ROM, normal capillary refill. Absent: tenderness - Back Exam Back exam: Present: normal inspection, full ROM - Neurological Exam Neurological exam: Present: alert, oriented X3, normal gait - Psychiatric Psychiatric exam: Present: normal affect, normal mood - Skin Skin exam: Present: warm, dry, intact, normal color. Absent: rash ED Course Vital Signs 01/26/18 01/26/18 01/26/18 09:29 11:48 12:18 Temperature 98.2 F Pulse Rate 87 Respiratory 20 19 16 Rate Blood Pressure 145/88 O2 Sat by Pulse 98 Oximetry 01/26/18 12:48 Temperature Pulse Rate Respiratory 16 Rate Blood Pressure O2 Sat by Pulse Oximetry - Reevaluation(s) Reevaluation #1: 01/26/18 13:50 Patient is speaking in full sentences with no signs of distress noted. YVONNE score - Yvonne Score Age > 65: (0) No Aspirin use within the Past 7 Days: (0) No 3 or more CAD Risk Factors: (0) No 2 or more Angina events in past 24 hrs: (0) No Known CAD with more than 50% Stenosis: (0) No Elevated Cardiac Markers: (0) No ST Deviation Greater than 0.5mm: (0) No YVONNE Score: 0 ED Medical Decision Making - Lab Data Result diagrams: 01/26/18 12:59 - Medical Decision Making This is a 37-year-old female that presents with costochondritis and asthma exacerbation. Patient is stable and was examined by me and Dr. Monk. YVONNE and HEART score 0 pints. Wells criteria for DVT/SVT/PE 0 points. Negative d-dimmer. EKG normal sinus rhythm with no significant changes in ST. Chest xray dictated by the radiologist. PAtient is notified of the Xray report with no questions noted. Labs within normal limits. Negative troponin. Patient received Toradol, breathing treatment and steroids in the ED which she stated his symptoms are improving subsided. I will discharge patient with prednisone and albuterol. Patient was instructed to Follow-up with a primary care/ sports broadcasting internship doctor in 3-5 days or if symptoms worsen and continue return to emergency room as soon as possible. At time of discharge, the patient does not seem toxic or ill in appearance. No acute signs of distress noted. Patient agrees to discharge treatment plan of care. No further questions noted by the patient. Critical care attestation.: If time is entered above; I have spent that time in minutes in the direct care of this critically ill patient, excluding procedure time. ED Disposition Clinical Impression: Costochondritis Asthma exacerbation Qualifiers: Asthma severity: mild Asthma persistence: intermittent Qualified Code(s): J45.21 - Mild intermittent asthma with (acute) exacerbation Disposition: -01 TO HOME OR SELFCARE Is pt being admited?: No Does the pt Need Aspirin: No Condition: Stable Instructions: Asthma (ED), Costochondritis (ED) Additional Instructions: Follow-up with a primary care/sports broadcasting internship doctor in 3-5 days or if symptoms worsen and continue return to emergency room as soon as possible. Prescriptions: ALBUTEROL Inhaler [ProAir HFA Inhaler] 2 puff IH QID PRN #1 inhalation PRN Reason: Shortness Of Breath Prednisone [predniSONE 10 mg (6-Day Pack, 21 Tabs)] 10 mg PO .TAPER #1 tab.ds.pk Referrals: PRIMARY CARE, [Primary Care Provider] - 3-5 Days KAIA TONY MD [Staff Physician] - 3-5 Days VINNY OH MD [Staff Physician] - 3-5 Days [facility] [Outside] - 3-5 Days Forms: Work/School Release Form(ED)
[2018-01-26 14:08] LABS: BUN/Creatinine Ratio 13; Blood Urea Nitrogen 8 mg/dL (7-17); Calcium 8.6 mg/dL (8.4-10.2); Hemolysis Index 14
--- NOTE | 2018-01-26 14:19 | XRay Report ---
FINAL REPORT EXAM: XR CHEST ROUTINE 2V HISTORY: cp, cough, wheeze TECHNIQUE: Frontal and lateral chest x-ray. PRIORS: 23 May 2017. FINDINGS: Cardiac and mediastinal silhouette within normal limits. Lungs are normally expanded, with some increased interstitial markings and peribronchial thickening centrally about the same. No focal consolidation, pleural effusions or apparent pneumothorax. Bony thorax grossly unremarkable. IMPRESSION: 1. Findings which may represent nonspecific postinflammatory change or bronchitis similar to comparison. 2. No acute consolidation.
[2018-01-26 14:29] VITALS: BP 114/54
== END 2018-01-26 14:31 | disposition home or self-care (01) ==
LOC: ED 09:18
DX: J45.21 Mild intermittent asthma with (acute) exacerbation (principal); M94.0 Chondrocostal junction syndrome [Tietze]; F17.200 Nicotine dependence, unspecified, uncomplicated; Z90.49 Acquired absence of other specified parts of digestive tract; Z88.8 Allergy status to other drugs, medicaments and biological substances
CPT/HCPCS: 36415; 71046; 80048; 84484; 84703; 85025; 85379; 93005; 93010; 94640; 96372; 99284; J1885; J7512

== ENCOUNTER 2018-01-31 15:11 | Emergency (ER) | payer OTHER ==
[2018-01-31] MEDS ORDERED: ZITHROMAX PO ONE (21:32)
[2018-01-31] MEDS ORDERED: PROVENTIL IH ONE (21:32)
[2018-01-31] MEDS ORDERED: DELTASONE PO ONE (21:32)
[2018-01-31] MEDS ORDERED: ATROVENT IH ONE (21:32)
[2018-01-31] MEDS ORDERED: NORCO 5/325 PO ONE (21:32)
[2018-01-31] MEDS ORDERED: TORADOL IM ONE (21:34)
[2018-01-31 21:52] VITALS: BP 127/86
--- NOTE | 2018-01-31 22:10 | Emergency Department Report ---
ED Asthma HPI - General Chief Complaint: Adult Asthma Stated Complaint: SOB/EARS CLOGGED Time Seen by Provider: 01/31/18 21:18 Source: patient, old records reviewed Mode of arrival: Ambulatory Limitations: No Limitations - History of Present Illness Initial Comments: 37-year-old female with past medical history asthma, ovarian cyst, pancreatitis , cholecystectomy, and tubal ligation presents complaining of continued dry cough, wheezing, and shortness breath. Patient is here on January 26 with the same symptoms. Laboratory and x-ray evaluation she was treated as exacerbation with albuterol and prednisone. Patient now complains of right ear pain rated 8/ 10 intensity. No fever reported. Patient also had his upper back pain is worse with coughing. - Related Data Previous Rx's Medication Instructions Recorded Last Taken Type oxyCODONE /ACETAMINOPHEN [Percocet 1 tab PO Q6HR PRN #10 tablet 04/25/14 Unknown Rx 5/325] Ciprofloxacin HCl [Cipro] 250 mg PO BID #6 tablet 10/16/14 Unknown Rx Methocarbamol [Robaxin] 750 mg PO BID #20 tab 10/16/14 Unknown Rx oxyCODONE /ACETAMINOPHEN [Percocet 1 tab PO Q6HR PRN #20 tablet 01/24/15 Unknown Rx 5/325 mg] Albuterol Sulfate [Ventolin HFA] 2 puff IH Q4H PRN #1 hfa.aer.ad 09/21/15 Unknown Rx Clarithromycin [Biaxin] 500 mg PO BID #20 tab 09/21/15 Unknown Rx predniSONE [Deltasone] 50 mg PO QDAY #5 tab 09/21/15 Unknown Rx traMADol [Ultram 50 MG tab] 50 mg PO Q6HR PRN #10 tablet 09/21/15 Unknown Rx Ibuprofen [Motrin] 800 mg PO Q8HR PRN #30 tablet 02/04/17 Unknown Rx Penicillin Vk [Veetids TAB] 500 mg PO BID #40 tablet 02/04/17 Unknown Rx ALBUTEROL Inhaler (OR & NICU) 2 puff IH QID PRN #1 inhalation 05/23/17 Unknown Rx [ProAir HFA Inhaler] Ibuprofen [Motrin] 800 mg PO Q8HR PRN #30 tablet 05/23/17 Unknown Rx Inhaler, Assist Devices [Space 1 each MC PRN #1 spacer 05/23/17 Unknown Rx Chamber Plus] Ondansetron [Zofran Odt] 4 mg PO Q8HR #20 tab.rapdis 05/23/17 Unknown Rx predniSONE [Deltasone] 40 mg PO QDAY 5 Days tab 05/23/17 Unknown Rx traMADol [Ultram] 50 mg PO Q6HR PRN #20 tablet 05/23/17 Unknown Rx Nystas/Diphen/Xyl Visc/Mylanta 15 ml MM Q4H PRN 5 Days ml 07/27/17 Unknown Rx [Magic Mouthwash] Cetirizine HCl [ZyrTEC] 10 mg PO QAM 5 Days #5 capsule 10/10/17 Unknown Rx predniSONE [Prednisone] 50 mg PO QAM 5 Days #5 tablet 10/10/17 Unknown Rx ALBUTEROL Inhaler (OR & NICU) 2 puff IH QID PRN #1 inhalation 11/25/17 Unknown Rx [ProAir HFA Inhaler] predniSONE [Deltasone] 3 tab PO DAILY 5 Days #15 tablet 11/25/17 Unknown Rx ALBUTEROL Inhaler (OR & NICU) 2 puff IH QID PRN #1 inhalation 01/26/18 Unknown Rx [ProAir HFA Inhaler] Prednisone [predniSONE 10 mg 10 mg PO .TAPER #1 tab.ds.pk 01/26/18 Unknown Rx (6-Day Pack, 21 Tabs)] Azithromycin [Zithromax Z-HUMBERTO] 1 dose PO DAILY 5 Days tab 02/01/18 Unknown Rx Benzonatate [Tessalon Perles] 100 mg PO Q8HR #30 capsule 02/01/18 Unknown Rx HYDROcodone/ACETAMINOPHEN [[place] 1 each PO Q6H PRN #15 tablet 02/01/18 Unknown Rx 5-325 Tablet] Ibuprofen [Motrin 800 MG tab] 800 mg PO Q8H PRN #30 tablet 02/01/18 Unknown Rx predniSONE [Deltasone] 40 mg PO QDAY 5 Days tablet 02/01/18 Unknown Rx Allergies Allergy/AdvReac Type Severity Reaction Status Date / Time cyclobenzaprine HCl Allergy Itching Verified 04/24/17 16:44 [From Flexeril] trazodone Allergy Itching Verified 01/26/18 09:29 ED Review of Systems ROS: Stated complaint: SOB/EARS CLOGGED Other details as noted in HPI Comment: All other systems reviewed and negative ED Past Medical Hx - Past Medical History Previous Medical History?: Yes Hx Congestive Heart Failure: No Hx Diabetes: No Hx Asthma: Yes Hx COPD: No Additional medical history: History of ovarian cysts. History of pancreatitis - Surgical History Past Surgical History?: Yes Hx Cholecystectomy: Yes Additional Surgical History: tubal ligation. Right knee arthroscopy for mensical tear 12/01/13 - Social History Smoking Status: Current Every Day Smoker Substance Use Type: None - Medications Home Medications: Home Medications Medication Instructions Recorded Confirmed Last Taken Type oxyCODONE /ACETAMINOPHEN [Percocet 1 tab PO Q6HR PRN #10 tablet 04/25/14 Unknown Rx 5/325] Ciprofloxacin HCl [Cipro] 250 mg PO BID #6 tablet 10/16/14 Unknown Rx Methocarbamol [Robaxin] 750 mg PO BID #20 tab 10/16/14 Unknown Rx oxyCODONE /ACETAMINOPHEN [Percocet 1 tab PO Q6HR PRN #20 tablet 01/24/15 Unknown Rx 5/325 mg] Albuterol Sulfate [Ventolin HFA] 2 puff IH Q4H PRN #1 hfa.aer.ad 09/21/15 Unknown Rx Clarithromycin [Biaxin] 500 mg PO BID #20 tab 09/21/15 Unknown Rx predniSONE [Deltasone] 50 mg PO QDAY #5 tab 09/21/15 Unknown Rx traMADol [Ultram 50 MG tab] 50 mg PO Q6HR PRN #10 tablet 09/21/15 Unknown Rx Ibuprofen [Motrin] 800 mg PO Q8HR PRN #30 tablet 02/04/17 Unknown Rx Penicillin Vk [Veetids TAB] 500 mg PO BID #40 tablet 02/04/17 Unknown Rx ALBUTEROL Inhaler (OR & NICU) 2 puff IH QID PRN #1 inhalation 05/23/17 Unknown Rx [ProAir HFA Inhaler] Ibuprofen [Motrin] 800 mg PO Q8HR PRN #30 tablet 05/23/17 Unknown Rx Inhaler, Assist Devices [Space 1 each MC PRN #1 spacer 05/23/17 Unknown Rx Chamber Plus] Ondansetron [Zofran Odt] 4 mg PO Q8HR #20 tab.rapdis 05/23/17 Unknown Rx predniSONE [Deltasone] 40 mg PO QDAY 5 Days tab 05/23/17 Unknown Rx traMADol [Ultram] 50 mg PO Q6HR PRN #20 tablet 05/23/17 Unknown Rx Nystas/Diphen/Xyl Visc/Mylanta 15 ml MM Q4H PRN 5 Days ml 07/27/17 Unknown Rx [Magic Mouthwash] Cetirizine HCl [ZyrTEC] 10 mg PO QAM 5 Days #5 capsule 10/10/17 Unknown Rx predniSONE [Prednisone] 50 mg PO QAM 5 Days #5 tablet 10/10/17 Unknown Rx ALBUTEROL Inhaler (OR & NICU) 2 puff IH QID PRN #1 inhalation 11/25/17 Unknown Rx [ProAir HFA Inhaler] predniSONE [Deltasone] 3 tab PO DAILY 5 Days #15 tablet 11/25/17 Unknown Rx ALBUTEROL Inhaler (OR & NICU) 2 puff IH QID PRN #1 inhalation 01/26/18 Unknown Rx [ProAir HFA Inhaler] Prednisone [predniSONE 10 mg 10 mg PO .TAPER #1 tab.ds.pk 01/26/18 Unknown Rx (6-Day Pack, 21 Tabs)] Azithromycin [Zithromax Z-HUMBERTO] 1 dose PO DAILY 5 Days tab 02/01/18 Unknown Rx Benzonatate [Tessalon Perles] 100 mg PO Q8HR #30 capsule 02/01/18 Unknown Rx HYDROcodone/ACETAMINOPHEN [[place] 1 each PO Q6H PRN #15 tablet 02/01/18 Unknown Rx 5-325 Tablet] Ibuprofen [Motrin 800 MG tab] 800 mg PO Q8H PRN #30 tablet 02/01/18 Unknown Rx predniSONE [Deltasone] 40 mg PO QDAY 5 Days tablet 02/01/18 Unknown Rx ED Physical Exam - General Limitations: No Limitations - Other Other exam information: General: No limitations, patient is alert in no acute distress Head exam: Atraumatic, normocephalic Eyes exam: Normal appearance, ENT: Right ear TM erythema with poor light reflex and pain on exam. Neck exam: Normal inspection, full range of motion, no meningismus nontender Respiratory exam: Bilateral wheezing, no tachypnea or accessory muscle Cardiovascular: Normal rate and rhythm, normal heart sounds Abdomen: Soft, nondistended, and nontender, with normal bowel sounds, no rebound, or guarding Extremity: Full range of motion normal inspection no deformity Back: Normal Inspection, full range of motion, upper back tenderness to palpation Neurologic: Alert, oriented x3, cranial nerves intact, no motor or sensory deficit Psychiatric: normal affect, normal mood Skin: Warm, dry, intact ED Course Vital Signs 01/31/18 01/31/18 01/31/18 15:51 21:42 21:45 Temperature 99.3 F Pulse Rate 84 Pulse Rate [ Bilateral Throughout] Respiratory 17 Rate Respiratory Rate [Bilateral Throughout] Blood Pressure 122/76 127/86 O2 Sat by Pulse 97 97 95 Oximetry 01/31/18 01/31/18 01/31/18 21:52 21:53 23:05 Temperature 97.2 F L Pulse Rate Pulse Rate [ 88 Bilateral Throughout] Respiratory 22 Rate Respiratory 18 Rate [Bilateral Throughout] Blood Pressure O2 Sat by Pulse Oximetry ED Medical Decision Making - Medical Decision Making Asthma/bronchitis and otitis media Treated in the ER with prednisone, azithromycin, albuterol, Atrovent, [place], and Tessalon Perles with improvement We discharged her medications and follow up - Differential Diagnosis asthma, bronchitis, pneumonia, otitis media, viral syndrome Critical Care Time: No Critical care attestation.: If time is entered above; I have spent that time in minutes in the direct care of this critically ill patient, excluding procedure time. ED Disposition Clinical Impression: Acute asthmatic bronchitis, Right acute otitis media, Costochondritis Disposition: TO HOME OR SELFCARE Is pt being admited?: No Does the pt Need Aspirin: No Condition: Stable Instructions: Otitis Media (ED), Acute Bronchitis (ED), Costochondritis (ED) Additional Instructions: Take the medication as prescribed. Follow up with your doctor or the doctor/ clinic provided. Return if symptoms worsen as indicated by your discharge instructions Prescriptions: Azithromycin [Zithromax Z-HUMBERTO] 1 dose PO DAILY 5 Days tab Benzonatate [Tessalon Perles] 100 mg PO Q8HR #30 capsule HYDROcodone/ACETAMINOPHEN [[place] 5-325 Tablet] 1 each PO Q6H PRN #15 tablet PRN Reason: Pain Ibuprofen [Motrin 800 MG tab] 800 mg PO Q8H PRN #30 tablet PRN Reason: Pain predniSONE [Deltasone] 40 mg PO QDAY 5 Days tablet Referrals: [facility] [Provider Group] - 3-5 Days ATUL ACOSTA MD [Staff Physician] - 3-5 Days Time of Disposition: 01:28
[2018-02-01] MEDS ORDERED: PROVENTIL IH ONE (00:03)
[2018-02-01] MEDS ORDERED: TESSALON PERLES PO ONE (00:04)
== END 2018-02-01 01:53 | disposition home or self-care (01) ==
LOC: ED 15:11
DX: J45.909 Unspecified asthma, uncomplicated (principal); H66.91 Otitis media, unspecified, right ear; M94.0 Chondrocostal junction syndrome [Tietze]; F17.200 Nicotine dependence, unspecified, uncomplicated; Z90.49 Acquired absence of other specified parts of digestive tract; Z98.51 Tubal ligation status; Z88.2 Allergy status to sulfonamides; Z88.8 Allergy status to other drugs, medicaments and biological substances
CPT/HCPCS: 94644; 96372; 99283; J1885; J7512

== ENCOUNTER 2018-06-12 13:45 | Emergency (ER) | payer SELFPAY ==
[2018-06-12] MEDS ORDERED: IBUPROFEN PO ONE (16:49)
--- NOTE | 2018-06-12 17:08 | Emergency Department Report ---
ED Lower Extremity HPI - General Chief Complaint: Extremity Injury, Lower Stated Complaint: RT KNEE SWELLING Time Seen by Provider: 06/12/18 16:44 Source: patient Mode of arrival: Ambulatory Limitations: No Limitations - History of Present Illness Initial Comments: This is a 37-year-old female nontoxic, well nourished in appearance, no acute signs of distress presents to the ED with c/o of intermittent right knee pain. 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 Patient states past medical history of right total knee replacement that was done 2 years ago. Patient denies any trauma. Patient denies any numbness, tingling, fever, chills, nausea, vomiting, chest pain, shortness of breath, headache, stiff neck. Patient denies any joint swelling or joint redness. Patient denies decreased range of motion. Patient stated has decreased gait due to pain. Patient stated allergies to Flexeril with past medical history of asthma. MD Complaint: knee injury -: days(s) (2) Injury: Knee: Right Severity: mild Severity scale (0 -10): 8 Improves With: immobilization Worsens With: weight bearing, movement, palpation Associated Symptoms: able to partially bear weight, ambulatory. denies: snap/pop sensation, swelling, numbness, tingling, unable to bear weight - Related Data Previous Rx's Medication Instructions Recorded Last Taken Type oxyCODONE /ACETAMINOPHEN [Percocet 1 tab PO Q6HR PRN #10 tablet 04/25/14 Unknown Rx 5/325] Ciprofloxacin HCl [Cipro] 250 mg PO BID #6 tablet 10/16/14 Unknown Rx Methocarbamol [Robaxin] 750 mg PO BID #20 tab 10/16/14 Unknown Rx oxyCODONE /ACETAMINOPHEN [Percocet 1 tab PO Q6HR PRN #20 tablet 01/24/15 Unknown Rx 5/325 mg] Albuterol Sulfate [Ventolin HFA] 2 puff IH Q4H PRN #1 hfa.aer.ad 09/21/15 Unknown Rx Clarithromycin [Biaxin] 500 mg PO BID #20 tab 09/21/15 Unknown Rx predniSONE [Deltasone] 50 mg PO QDAY #5 tab 09/21/15 Unknown Rx traMADol [Ultram 50 MG tab] 50 mg PO Q6HR PRN #10 tablet 09/21/15 Unknown Rx Ibuprofen [Motrin] 800 mg PO Q8HR PRN #30 tablet 02/04/17 Unknown Rx Penicillin Vk [Veetids TAB] 500 mg PO BID #40 tablet 02/04/17 Unknown Rx ALBUTEROL Inhaler (OR & NICU) 2 puff IH QID PRN #1 inhalation 05/23/17 Unknown Rx [ProAir HFA Inhaler] Ibuprofen [Motrin] 800 mg PO Q8HR PRN #30 tablet 05/23/17 Unknown Rx Inhaler, Assist Devices [Space 1 each MC PRN #1 spacer 05/23/17 Unknown Rx Chamber Plus] Ondansetron [Zofran Odt] 4 mg PO Q8HR #20 tab.rapdis 05/23/17 Unknown Rx predniSONE [Deltasone] 40 mg PO QDAY 5 Days tab 05/23/17 Unknown Rx traMADol [Ultram] 50 mg PO Q6HR PRN #20 tablet 05/23/17 Unknown Rx Nystas/Diphen/Xyl Visc/Mylanta 15 ml MM Q4H PRN 5 Days ml 07/27/17 Unknown Rx [Magic Mouthwash] Cetirizine HCl [ZyrTEC] 10 mg PO QAM 5 Days #5 capsule 10/10/17 Unknown Rx predniSONE [Prednisone] 50 mg PO QAM 5 Days #5 tablet 10/10/17 Unknown Rx ALBUTEROL Inhaler (OR & NICU) 2 puff IH QID PRN #1 inhalation 11/25/17 Unknown Rx [ProAir HFA Inhaler] predniSONE [Deltasone] 3 tab PO DAILY 5 Days #15 tablet 11/25/17 Unknown Rx ALBUTEROL Inhaler (OR & NICU) 2 puff IH QID PRN #1 inhalation 01/26/18 Unknown Rx [ProAir HFA Inhaler] Prednisone [predniSONE 10 mg 10 mg PO .TAPER #1 tab.ds.pk 01/26/18 Unknown Rx (6-Day Pack, 21 Tabs)] Azithromycin [Zithromax Z-HUMBERTO] 1 dose PO DAILY 5 Days tab 02/01/18 Unknown Rx HYDROcodone/ACETAMINOPHEN [Leeds 1 each PO Q6H PRN #15 tablet 02/01/18 Unknown Rx 5-325 Tablet] Ibuprofen [Motrin 800 MG tab] 800 mg PO Q8H PRN #30 tablet 02/01/18 Unknown Rx predniSONE [Deltasone] 40 mg PO QDAY 5 Days tablet 02/01/18 Unknown Rx ALBUTEROL NEB's [Proventil 0.083% 2.5 mg IH TID PRN #270 ml 05/05/18 Unknown Rx NEBS] Benzonatate [Tessalon Perles] 100 mg PO Q8HR #15 capsule 05/05/18 Unknown Rx Prednisone [predniSONE 10 mg 10 mg PO .TAPER #1 tab.ds.pk 05/05/18 Unknown Rx (6-Day Pack, 21 Tabs)] Clindamycin [Clindamycin CAP] 300 mg PO Q8H #21 cap 05/31/18 Unknown Rx Prednisone [predniSONE 10 mg 10 mg PO .TAPER #1 tab.ds.pk 05/31/18 Unknown Rx (6-Day Pack, 21 Tabs)] diphenhydrAMINE [Benadryl CAP] 25 mg PO Q6HR PRN #20 capsule 05/31/18 Unknown Rx Ibuprofen [Motrin] 600 mg PO Q8H PRN #20 tablet 06/12/18 Unknown Rx Allergies Allergy/AdvReac Type Severity Reaction Status Date / Time cyclobenzaprine HCl Allergy Itching Verified 04/24/17 16:44 [From Flexeril] trazodone Allergy Itching Verified 01/26/18 09:29 ED Review of Systems ROS: Stated complaint: RT KNEE SWELLING Other details as noted in HPI Constitutional: denies: chills, fever Eyes: denies: eye pain, eye discharge, vision change ENT: denies: ear pain, throat pain Respiratory: denies: cough, shortness of breath, wheezing Cardiovascular: denies: chest pain, palpitations Endocrine: no symptoms reported Gastrointestinal: denies: abdominal pain, nausea, diarrhea Genitourinary: denies: urgency, dysuria, discharge Musculoskeletal: arthralgia. denies: back pain, joint swelling Skin: denies: rash, lesions Neurological: denies: headache, weakness, paresthesias Psychiatric: denies: anxiety, depression Hematological/Lymphatic: denies: easy bleeding, easy bruising ED Past Medical Hx - Past Medical History Previous Medical History?: Yes Hx Congestive Heart Failure: No Hx Diabetes: No Hx Asthma: Yes Hx COPD: No Additional medical history: History of ovarian cysts. History of pancreatitis - Surgical History Past Surgical History?: Yes Hx Cholecystectomy: Yes Additional Surgical History: tubal ligation. Right knee arthroscopy for mensical tear 12/01/13 - Social History Smoking Status: Current Every Day Smoker Substance Use Type: None - Medications Home Medications: Home Medications Medication Instructions Recorded Confirmed Last Taken Type oxyCODONE /ACETAMINOPHEN [Percocet 1 tab PO Q6HR PRN #10 tablet 04/25/14 Unknown Rx 5/325] Ciprofloxacin HCl [Cipro] 250 mg PO BID #6 tablet 10/16/14 Unknown Rx Methocarbamol [Robaxin] 750 mg PO BID #20 tab 10/16/14 Unknown Rx oxyCODONE /ACETAMINOPHEN [Percocet 1 tab PO Q6HR PRN #20 tablet 01/24/15 Unknown Rx 5/325 mg] Albuterol Sulfate [Ventolin HFA] 2 puff IH Q4H PRN #1 hfa.aer.ad 09/21/15 Unknown Rx Clarithromycin [Biaxin] 500 mg PO BID #20 tab 09/21/15 Unknown Rx predniSONE [Deltasone] 50 mg PO QDAY #5 tab 09/21/15 Unknown Rx traMADol [Ultram 50 MG tab] 50 mg PO Q6HR PRN #10 tablet 09/21/15 Unknown Rx Ibuprofen [Motrin] 800 mg PO Q8HR PRN #30 tablet 02/04/17 Unknown Rx Penicillin Vk [Veetids TAB] 500 mg PO BID #40 tablet 02/04/17 Unknown Rx ALBUTEROL Inhaler (OR & NICU) 2 puff IH QID PRN #1 inhalation 05/23/17 Unknown Rx [ProAir HFA Inhaler] Ibuprofen [Motrin] 800 mg PO Q8HR PRN #30 tablet 05/23/17 Unknown Rx Inhaler, Assist Devices [Space 1 each MC PRN #1 spacer 05/23/17 Unknown Rx Chamber Plus] Ondansetron [Zofran Odt] 4 mg PO Q8HR #20 tab.rapdis 05/23/17 Unknown Rx predniSONE [Deltasone] 40 mg PO QDAY 5 Days tab 05/23/17 Unknown Rx traMADol [Ultram] 50 mg PO Q6HR PRN #20 tablet 05/23/17 Unknown Rx Nystas/Diphen/Xyl Visc/Mylanta 15 ml MM Q4H PRN 5 Days ml 07/27/17 Unknown Rx [Magic Mouthwash] Cetirizine HCl [ZyrTEC] 10 mg PO QAM 5 Days #5 capsule 10/10/17 Unknown Rx predniSONE [Prednisone] 50 mg PO QAM 5 Days #5 tablet 10/10/17 Unknown Rx ALBUTEROL Inhaler (OR & NICU) 2 puff IH QID PRN #1 inhalation 11/25/17 Unknown Rx [ProAir HFA Inhaler] predniSONE [Deltasone] 3 tab PO DAILY 5 Days #15 tablet 11/25/17 Unknown Rx ALBUTEROL Inhaler (OR & NICU) 2 puff IH QID PRN #1 inhalation 01/26/18 Unknown Rx [ProAir HFA Inhaler] Prednisone [predniSONE 10 mg 10 mg PO .TAPER #1 tab.ds.pk 01/26/18 Unknown Rx (6-Day Pack, 21 Tabs)] Azithromycin [Zithromax Z-HUMBERTO] 1 dose PO DAILY 5 Days tab 02/01/18 Unknown Rx HYDROcodone/ACETAMINOPHEN [Leeds 1 each PO Q6H PRN #15 tablet 02/01/18 Unknown Rx 5-325 Tablet] Ibuprofen [Motrin 800 MG tab] 800 mg PO Q8H PRN #30 tablet 02/01/18 Unknown Rx predniSONE [Deltasone] 40 mg PO QDAY 5 Days tablet 02/01/18 Unknown Rx ALBUTEROL NEB's [Proventil 0.083% 2.5 mg IH TID PRN #270 ml 05/05/18 Unknown Rx NEBS] Benzonatate [Tessalon Perles] 100 mg PO Q8HR #15 capsule 05/05/18 Unknown Rx Prednisone [predniSONE 10 mg 10 mg PO .TAPER #1 tab.ds.pk 05/05/18 Unknown Rx (6-Day Pack, 21 Tabs)] Clindamycin [Clindamycin CAP] 300 mg PO Q8H #21 cap 05/31/18 Unknown Rx Prednisone [predniSONE 10 mg 10 mg PO .TAPER #1 tab.ds.pk 05/31/18 Unknown Rx (6-Day Pack, 21 Tabs)] diphenhydrAMINE [Benadryl CAP] 25 mg PO Q6HR PRN #20 capsule 05/31/18 Unknown Rx Ibuprofen [Motrin] 600 mg PO Q8H PRN #20 tablet 06/12/18 Unknown Rx ED Physical Exam - General Limitations: No Limitations General appearance: alert, in no apparent distress - Head Head exam: Present: atraumatic, normocephalic - Extremities Exam Extremities exam: Present: normal inspection, full ROM, tenderness, normal capillary refill. Absent: joint swelling, calf tenderness - Expanded Lower Extremity Exam Right Hip exam: Present: normal inspection, full ROM. Absent: tenderness Upper Leg exam: Present: normal inspection, full ROM. Absent: tenderness Knee exam: Present: normal inspection, full ROM, tenderness, full knee extension. Absent: swelling, abrasion, laceration, ecchymosis, deformity, crepidus, dislocation, erythema, effusion, pain w/ pronation/supination, post erior draw sign, pain/laxity with valgus, pain/laxity with varus Lower Leg exam: Present: normal inspection, full ROM. Absent: tenderness Ankle exam: Present: normal inspection, full ROM. Absent: tenderness Foot/Toe exam: Present: normal inspection, full ROM. Absent: tenderness Neuro vascular tendon exam: Present: no vascular compromise Gait: Positive: observed and normal - Back Exam Back exam: Present: normal inspection, full ROM - Neurological Exam Neurological exam: Present: alert, oriented X3 - Psychiatric Psychiatric exam: Present: normal affect, normal mood - Skin Skin exam: Present: warm, dry, intact, normal color. Absent: rash ED Course Vital Signs 06/12/18 06/12/18 14:15 17:16 Temperature 98.7 F Pulse Rate 81 Respiratory 20 22 Rate Blood Pressure 133/69 O2 Sat by Pulse 98 Oximetry - Reevaluation(s) Reevaluation #1: 06/12/18 17:06 Patient is speaking in full sentences with no signs of distress noted. ED Lower Extremity MDM - Medical Decision Making This is a 37-year-old female that presents with right knee strain. Patient is stable and was examined by me. I referred patient to an orthopedic doctor for further evaluation for possible MRI. X-ray has been obtained and dictated by the radiologist. Patient is notified of the x-ray report with noted by the patient. Patient does have normal gait with no tenderness and no joint swelling. No ecchymosis. no joint redness or swelling. Not warm to touch. No signs of cellulites present. Patient received a knee immobilize. Patient was instructed to RICE therapy. Patient received Motrin for pain. Patient is discharged with Motrin. At time of discharge, the patient does not seem toxic or ill in appearance. No acute signs of distress noted. Patient agrees to discharge treatment plan of care. No further questions noted by the patient. Critical care attestation.: If time is entered above; I have spent that time in minutes in the direct care of this critically ill patient, excluding procedure time. ED Disposition Clinical Impression: Strain of right knee Qualifiers: Encounter type: initial encounter Qualified Code(s): S86.911A - Strain of unspecified muscle(s) and tendon(s) at lower leg level, right leg, initial encounter Disposition: TO HOME OR SELFCARE Is pt being admited?: No Does the pt Need Aspirin: No Condition: Stable Instructions: Knee Pain (ED), Knee Immobilizer (ED), RICE Therapy (ED) Additional Instructions: Follow-up with a orthopedic doctor in 3-5 days or if symptoms worsen and continue return to emergency room as soon as possible. Prescriptions: Ibuprofen [Motrin] 600 mg PO Q8H PRN #20 tablet PRN Reason: Pain Referrals: PRIMARY CARE, [Primary Care Provider] - 3-5 Days KAIA TONY MD [Staff Physician] - 3-5 Days [facility] [Outside] - 3-5 Days JOSUE SALINAS MD [Staff Physician] - 3-5 Days Forms: Work/School Release Form(ED)
--- NOTE | 2018-06-12 17:27 | XRay Report ---
FINAL REPORT EXAM: XR KNEE 3V RT HISTORY: right knee pain TECHNIQUE: Frontal, lateral, oblique views right knee Comparison: None FINDINGS: There is no evidence of fracture or subluxation. The joint spaces are maintained. There is evidence of previous cruciate ligament repair with retained surgical hardware. The soft tissues are unremarkable. IMPRESSION: 1. Evidence of previous cruciate ligament repair with retained hardware. 2. Otherwise unremarkable study.
[2018-06-12 18:27] VITALS: BP 138/74
== END 2018-06-12 18:26 | disposition home or self-care (01) ==
LOC: ED 13:45
DX: S86.911A Strain of unspecified muscle(s) and tendon(s) at lower leg level, right leg, initial encounter (principal); J45.909 Unspecified asthma, uncomplicated; F17.200 Nicotine dependence, unspecified, uncomplicated; Z98.51 Tubal ligation status; Z90.49 Acquired absence of other specified parts of digestive tract; Z88.2 Allergy status to sulfonamides; Z88.8 Allergy status to other drugs, medicaments and biological substances; X50.0XXA Overexertion from strenuous movement or load, initial encounter; Y93.89 Activity, other specified; Y92.89 Other specified places as the place of occurrence of the external cause; Y99.8 Other external cause status

== ENCOUNTER 2018-07-25 18:23 | Emergency (ER) | payer SELFPAY ==
--- NOTE | 2018-07-25 18:54 | Emergency Department Report ---
Blank Doc - Documentation Documentation: This is a 37-year-old female that presents with right-sided headache with right eye pain. Denies any one sided weakness. Denies slurred speech. Normal gait. Denies worst headache or thunderclap headache. Exam: neuro exam normal. normal strength. Normal gait. no one-sided deficit. This initial assessment diagnostic orders/clinical plan/treatment(s) is/are subject to change based on patient's health status, clinical progression and re- assessment by fellow clinical providers in the ED. Further treatment and workup at subsequent clinical providers discretion. Patient/guardians urged not to elope from ED s their condition may be serious if not clinically assessed and managed. Initial orders include: 1-Patient sent to [facility] for further evaluation and treatment 2- CT of head 3- Visual acuity
[2018-07-25 19:04] VITALS: BP 139/88
--- NOTE | 2018-07-25 19:47 | Cat Scan Report ---
FINAL REPORT EXAM: CT HEAD/BRAIN WO CON HISTORY: headache TECHNIQUE: CT head without contrast PRIORS: None. FINDINGS: No acute intra-axial or extra-axial hemorrhage is identified. There is no evidence of midline shift or mass effect. The ventricles and sulci are within normal limits. Deleon-white matter differentiation is intact. No acute parenchymal abnormalities seen. Bony calvarium is grossly intact. Visualized portions of the mastoids and paranasal sinuses are unre markable. IMPRESSION: Negative CT head
== END 2018-07-25 20:05 | disposition left against medical advice (07) ==
LOC: ED 18:23
DX: H57.11 Ocular pain, right eye (principal); Z53.21 Procedure and treatment not carried out due to patient leaving prior to being seen by health care provider
CPT/HCPCS: 70450

== ENCOUNTER 2018-07-26 12:05 | Emergency (ER) | payer SELFPAY ==
[2018-07-26 12:38] VITALS: BP 124/84
--- NOTE | 2018-07-26 12:43 | Emergency Department Report ---
ED ENT HPI - General Chief complaint: Headache Stated complaint: FACE SWELLING Time Seen by Provider: 07/26/18 12:19 Source: patient Mode of arrival: Ambulatory Limitations: No Limitations - History of Present Illness Initial comments: 37 y/o female presents to ed c/o of dull throbbing headache to right eye and cheek region for the last couple days. Came here last night and recieved a CT head (results negative head CT) but didn't wait for results due to a long wait. While home she developed swelling to cheek and worsen dental pain. no fever or discharge. no neck pain or known trauma. MD complaint: tooth pain -: Sudden Location: tooth # Severity: moderate Quality: dull, constant Consistency: constant Improves with: none Worsens with: none Context- Dental: poor dental care Associated Symptoms: toothache. denies: pain with swallowing, discharge from ear, rhinorrhea - Related Data Previous Rx's Medication Instructions Recorded Last Taken Type oxyCODONE /ACETAMINOPHEN [Percocet 1 tab PO Q6HR PRN #10 tablet 04/25/14 Unknown Rx 5/325] Ciprofloxacin HCl [Cipro] 250 mg PO BID #6 tablet 10/16/14 Unknown Rx Methocarbamol [Robaxin] 750 mg PO BID #20 tab 10/16/14 Unknown Rx oxyCODONE /ACETAMINOPHEN [Percocet 1 tab PO Q6HR PRN #20 tablet 01/24/15 Unknown Rx 5/325 mg] Albuterol Sulfate [Ventolin HFA] 2 puff IH Q4H PRN #1 hfa.aer.ad 09/21/15 Unknown Rx Clarithromycin [Biaxin] 500 mg PO BID #20 tab 09/21/15 Unknown Rx predniSONE [Deltasone] 50 mg PO QDAY #5 tab 09/21/15 Unknown Rx traMADol [Ultram 50 MG tab] 50 mg PO Q6HR PRN #10 tablet 09/21/15 Unknown Rx Ibuprofen [Motrin] 800 mg PO Q8HR PRN #30 tablet 02/04/17 Unknown Rx Penicillin Vk [Veetids TAB] 500 mg PO BID #40 tablet 02/04/17 Unknown Rx ALBUTEROL Inhaler (OR & NICU) 2 puff IH QID PRN #1 inhalation 05/23/17 Unknown Rx [ProAir HFA Inhaler] Ibuprofen [Motrin] 800 mg PO Q8HR PRN #30 tablet 05/23/17 Unknown Rx Inhaler, Assist Devices [Space 1 each MC PRN #1 spacer 05/23/17 Unknown Rx Chamber Plus] Ondansetron [Zofran Odt] 4 mg PO Q8HR #20 tab.rapdis 05/23/17 Unknown Rx predniSONE [Deltasone] 40 mg PO QDAY 5 Days tab 05/23/17 Unknown Rx traMADol [Ultram] 50 mg PO Q6HR PRN #20 tablet 05/23/17 Unknown Rx Nystas/Diphen/Xyl Visc/Mylanta 15 ml MM Q4H PRN 5 Days ml 07/27/17 Unknown Rx [Magic Mouthwash] Cetirizine HCl [ZyrTEC] 10 mg PO QAM 5 Days #5 capsule 10/10/17 Unknown Rx predniSONE [Prednisone] 50 mg PO QAM 5 Days #5 tablet 10/10/17 Unknown Rx ALBUTEROL Inhaler (OR & NICU) 2 puff IH QID PRN #1 inhalation 11/25/17 Unknown Rx [ProAir HFA Inhaler] predniSONE [Deltasone] 3 tab PO DAILY 5 Days #15 tablet 11/25/17 Unknown Rx ALBUTEROL Inhaler (OR & NICU) 2 puff IH QID PRN #1 inhalation 01/26/18 Unknown Rx [ProAir HFA Inhaler] Prednisone [predniSONE 10 mg 10 mg PO .TAPER #1 tab.ds.pk 01/26/18 Unknown Rx (6-Day Pack, 21 Tabs)] Azithromycin [Zithromax Z-HUMBERTO] 1 dose PO DAILY 5 Days tab 02/01/18 Unknown Rx HYDROcodone/ACETAMINOPHEN [[place] 1 each PO Q6H PRN #15 tablet 02/01/18 Unknown Rx 5-325 Tablet] Ibuprofen [Motrin 800 MG tab] 800 mg PO Q8H PRN #30 tablet 02/01/18 Unknown Rx predniSONE [Deltasone] 40 mg PO QDAY 5 Days tablet 02/01/18 Unknown Rx ALBUTEROL NEB's [Proventil 0.083% 2.5 mg IH TID PRN #270 ml 05/05/18 Unknown Rx NEBS] Benzonatate [Tessalon Perles] 100 mg PO Q8HR #15 capsule 05/05/18 Unknown Rx Prednisone [predniSONE 10 mg 10 mg PO .TAPER #1 tab.ds.pk 05/05/18 Unknown Rx (6-Day Pack, 21 Tabs)] Clindamycin [Clindamycin CAP] 300 mg PO Q8H #21 cap 05/31/18 Unknown Rx Prednisone [predniSONE 10 mg 10 mg PO .TAPER #1 tab.ds.pk 05/31/18 Unknown Rx (6-Day Pack, 21 Tabs)] diphenhydrAMINE [Benadryl CAP] 25 mg PO Q6HR PRN #20 capsule 05/31/18 Unknown Rx Ibuprofen [Motrin] 600 mg PO Q8H PRN #20 tablet 06/12/18 Unknown Rx Amoxicillin/Potassium Clav 1 each PO BID #20 tablet 07/26/18 Unknown Rx [Augmentin 875-125 Tablet] Chlorhexidine Mouthwash [Peridex] 15 ml MM BID #1 bottle 07/26/18 Unknown Rx Ketorolac [Toradol] 10 mg PO Q6H PRN #15 tablet 07/26/18 Unknown Rx Lidocaine Viscous 2% 5 ml MM Q3H PRN #120 udc 07/26/18 Unknown Rx traMADol [Ultram] 50 mg PO Q6HR PRN #20 tablet 07/26/18 Unknown Rx Allergies Allergy/AdvReac Type Severity Reaction Status Date / Time cyclobenzaprine HCl Allergy Itching Verified 04/24/17 16:44 [From Flexeril] trazodone Allergy Itching Verified 01/26/18 09:29 ED Dental HPI - General Chief complaint: Headache Stated complaint: FACE SWELLING Time Seen by Provider: 07/26/18 12:19 Source: patient Mode of arrival: Ambulatory Limitations: No Limitations - Related Data Previous Rx's Medication Instructions Recorded Last Taken Type oxyCODONE /ACETAMINOPHEN [Percocet 1 tab PO Q6HR PRN #10 tablet 04/25/14 Unknown Rx 5/325] Ciprofloxacin HCl [Cipro] 250 mg PO BID #6 tablet 10/16/14 Unknown Rx Methocarbamol [Robaxin] 750 mg PO BID #20 tab 10/16/14 Unknown Rx oxyCODONE /ACETAMINOPHEN [Percocet 1 tab PO Q6HR PRN #20 tablet 01/24/15 Unknown Rx 5/325 mg] Albuterol Sulfate [Ventolin HFA] 2 puff IH Q4H PRN #1 hfa.aer.ad 09/21/15 Unknown Rx Clarithromycin [Biaxin] 500 mg PO BID #20 tab 09/21/15 Unknown Rx predniSONE [Deltasone] 50 mg PO QDAY #5 tab 09/21/15 Unknown Rx traMADol [Ultram 50 MG tab] 50 mg PO Q6HR PRN #10 tablet 09/21/15 Unknown Rx Ibuprofen [Motrin] 800 mg PO Q8HR PRN #30 tablet 02/04/17 Unknown Rx Penicillin Vk [Veetids TAB] 500 mg PO BID #40 tablet 02/04/17 Unknown Rx ALBUTEROL Inhaler (OR & NICU) 2 puff IH QID PRN #1 inhalation 05/23/17 Unknown Rx [ProAir HFA Inhaler] Ibuprofen [Motrin] 800 mg PO Q8HR PRN #30 tablet 05/23/17 Unknown Rx Inhaler, Assist Devices [Space 1 each MC PRN #1 spacer 05/23/17 Unknown Rx Chamber Plus] Ondansetron [Zofran Odt] 4 mg PO Q8HR #20 tab.rapdis 05/23/17 Unknown Rx predniSONE [Deltasone] 40 mg PO QDAY 5 Days tab 05/23/17 Unknown Rx traMADol [Ultram] 50 mg PO Q6HR PRN #20 tablet 05/23/17 Unknown Rx Nystas/Diphen/Xyl Visc/Mylanta 15 ml MM Q4H PRN 5 Days ml 07/27/17 Unknown Rx [Magic Mouthwash] Cetirizine HCl [ZyrTEC] 10 mg PO QAM 5 Days #5 capsule 10/10/17 Unknown Rx predniSONE [Prednisone] 50 mg PO QAM 5 Days #5 tablet 10/10/17 Unknown Rx ALBUTEROL Inhaler (OR & NICU) 2 puff IH QID PRN #1 inhalation 11/25/17 Unknown Rx [ProAir HFA Inhaler] predniSONE [Deltasone] 3 tab PO DAILY 5 Days #15 tablet 11/25/17 Unknown Rx ALBUTEROL Inhaler (OR & NICU) 2 puff IH QID PRN #1 inhalation 01/26/18 Unknown Rx [ProAir HFA Inhaler] Prednisone [predniSONE 10 mg 10 mg PO .TAPER #1 tab.ds.pk 01/26/18 Unknown Rx (6-Day Pack, 21 Tabs)] Azithromycin [Zithromax Z-HUMBERTO] 1 dose PO DAILY 5 Days tab 02/01/18 Unknown Rx HYDROcodone/ACETAMINOPHEN [[place] 1 each PO Q6H PRN #15 tablet 02/01/18 Unknown Rx 5-325 Tablet] Ibuprofen [Motrin 800 MG tab] 800 mg PO Q8H PRN #30 tablet 02/01/18 Unknown Rx predniSONE [Deltasone] 40 mg PO QDAY 5 Days tablet 02/01/18 Unknown Rx ALBUTEROL NEB's [Proventil 0.083% 2.5 mg IH TID PRN #270 ml 05/05/18 Unknown Rx NEBS] Benzonatate [Tessalon Perles] 100 mg PO Q8HR #15 capsule 05/05/18 Unknown Rx Prednisone [predniSONE 10 mg 10 mg PO .TAPER #1 tab.ds.pk 05/05/18 Unknown Rx (6-Day Pack, 21 Tabs)] Clindamycin [Clindamycin CAP] 300 mg PO Q8H #21 cap 05/31/18 Unknown Rx Prednisone [predniSONE 10 mg 10 mg PO .TAPER #1 tab.ds.pk 05/31/18 Unknown Rx (6-Day Pack, 21 Tabs)] diphenhydrAMINE [Benadryl CAP] 25 mg PO Q6HR PRN #20 capsule 05/31/18 Unknown Rx Ibuprofen [Motrin] 600 mg PO Q8H PRN #20 tablet 06/12/18 Unknown Rx Amoxicillin/Potassium Clav 1 each PO BID #20 tablet 07/26/18 Unknown Rx [Augmentin 875-125 Tablet] Chlorhexidine Mouthwash [Peridex] 15 ml MM BID #1 bottle 07/26/18 Unknown Rx Ketorolac [Toradol] 10 mg PO Q6H PRN #15 tablet 07/26/18 Unknown Rx Lidocaine Viscous 2% 5 ml MM Q3H PRN #120 udc 07/26/18 Unknown Rx traMADol [Ultram] 50 mg PO Q6HR PRN #20 tablet 07/26/18 Unknown Rx Allergies Allergy/AdvReac Type Severity Reaction Status Date / Time cyclobenzaprine HCl Allergy Itching Verified 04/24/17 16:44 [From Flexeril] trazodone Allergy Itching Verified 01/26/18 09:29 ED Review of Systems ROS: Stated complaint: FACE SWELLING Other details as noted in HPI Constitutional: denies: chills, fever Eyes: denies: eye pain, eye discharge, vision change ENT: dental pain. denies: ear pain, throat pain Respiratory: denies: cough, shortness of breath, wheezing Cardiovascular: denies: chest pain, palpitations Endocrine: no symptoms reported Gastrointestinal: denies: abdominal pain, nausea, diarrhea Genitourinary: denies: urgency, dysuria, discharge Musculoskeletal: denies: back pain, joint swelling, arthralgia Skin: denies: rash, lesions Neurological: denies: headache, weakness, paresthesias Psychiatric: denies: anxiety, depression Hematological/Lymphatic: denies: easy bleeding, easy bruising ED Past Medical Hx - Past Medical History Hx Congestive Heart Failure: No Hx Diabetes: No Hx Asthma: Yes Hx COPD: No Additional medical history: History of ovarian cysts. History of pancreatitis - Surgical History Hx Cholecystectomy: Yes Additional Surgical History: tubal ligation. Right knee arthroscopy for mensical tear 12/01/13 - Social History Smoking Status: Current Every Day Smoker Substance Use Type: None - Medications Home Medications: Home Medications Medication Instructions Recorded Confirmed Last Taken Type oxyCODONE /ACETAMINOPHEN [Percocet 1 tab PO Q6HR PRN #10 tablet 04/25/14 Unknown Rx 5/325] Ciprofloxacin HCl [Cipro] 250 mg PO BID #6 tablet 10/16/14 Unknown Rx Methocarbamol [Robaxin] 750 mg PO BID #20 tab 10/16/14 Unknown Rx oxyCODONE /ACETAMINOPHEN [Percocet 1 tab PO Q6HR PRN #20 tablet 01/24/15 Unknown Rx 5/325 mg] Albuterol Sulfate [Ventolin HFA] 2 puff IH Q4H PRN #1 hfa.aer.ad 09/21/15 Unknown Rx Clarithromycin [Biaxin] 500 mg PO BID #20 tab 09/21/15 Unknown Rx predniSONE [Deltasone] 50 mg PO QDAY #5 tab 09/21/15 Unknown Rx traMADol [Ultram 50 MG tab] 50 mg PO Q6HR PRN #10 tablet 09/21/15 Unknown Rx Ibuprofen [Motrin] 800 mg PO Q8HR PRN #30 tablet 02/04/17 Unknown Rx Penicillin Vk [Veetids TAB] 500 mg PO BID #40 tablet 02/04/17 Unknown Rx ALBUTEROL Inhaler (OR & NICU) 2 puff IH QID PRN #1 inhalation 05/23/17 Unknown Rx [ProAir HFA Inhaler] Ibuprofen [Motrin] 800 mg PO Q8HR PRN #30 tablet 05/23/17 Unknown Rx Inhaler, Assist Devices [Space 1 each MC PRN #1 spacer 05/23/17 Unknown Rx Chamber Plus] Ondansetron [Zofran Odt] 4 mg PO Q8HR #20 tab.rapdis 05/23/17 Unknown Rx predniSONE [Deltasone] 40 mg PO QDAY 5 Days tab 05/23/17 Unknown Rx traMADol [Ultram] 50 mg PO Q6HR PRN #20 tablet 05/23/17 Unknown Rx Nystas/Diphen/Xyl Visc/Mylanta 15 ml MM Q4H PRN 5 Days ml 07/27/17 Unknown Rx [Magic Mouthwash] Cetirizine HCl [ZyrTEC] 10 mg PO QAM 5 Days #5 capsule 10/10/17 Unknown Rx predniSONE [Prednisone] 50 mg PO QAM 5 Days #5 tablet 10/10/17 Unknown Rx ALBUTEROL Inhaler (OR & NICU) 2 puff IH QID PRN #1 inhalation 11/25/17 Unknown Rx [ProAir HFA Inhaler] predniSONE [Deltasone] 3 tab PO DAILY 5 Days #15 tablet 11/25/17 Unknown Rx ALBUTEROL Inhaler (OR & NICU) 2 puff IH QID PRN #1 inhalation 01/26/18 Unknown Rx [ProAir HFA Inhaler] Prednisone [predniSONE 10 mg 10 mg PO .TAPER #1 tab.ds.pk 01/26/18 Unknown Rx (6-Day Pack, 21 Tabs)] Azithromycin [Zithromax Z-HUMBERTO] 1 dose PO DAILY 5 Days tab 02/01/18 Unknown Rx HYDROcodone/ACETAMINOPHEN [[place] 1 each PO Q6H PRN #15 tablet 02/01/18 Unknown Rx 5-325 Tablet] Ibuprofen [Motrin 800 MG tab] 800 mg PO Q8H PRN #30 tablet 02/01/18 Unknown Rx predniSONE [Deltasone] 40 mg PO QDAY 5 Days tablet 02/01/18 Unknown Rx ALBUTEROL NEB's [Proventil 0.083% 2.5 mg IH TID PRN #270 ml 05/05/18 Unknown Rx NEBS] Benzonatate [Tessalon Perles] 100 mg PO Q8HR #15 capsule 05/05/18 Unknown Rx Prednisone [predniSONE 10 mg 10 mg PO .TAPER #1 tab.ds.pk 05/05/18 Unknown Rx (6-Day Pack, 21 Tabs)] Clindamycin [Clindamycin CAP] 300 mg PO Q8H #21 cap 05/31/18 Unknown Rx Prednisone [predniSONE 10 mg 10 mg PO .TAPER #1 tab.ds.pk 05/31/18 Unknown Rx (6-Day Pack, 21 Tabs)] diphenhydrAMINE [Benadryl CAP] 25 mg PO Q6HR PRN #20 capsule 05/31/18 Unknown Rx Ibuprofen [Motrin] 600 mg PO Q8H PRN #20 tablet 06/12/18 Unknown Rx Amoxicillin/Potassium Clav 1 each PO BID #20 tablet 07/26/18 Unknown Rx [Augmentin 875-125 Tablet] Chlorhexidine Mouthwash [Peridex] 15 ml MM BID #1 bottle 07/26/18 Unknown Rx Ketorolac [Toradol] 10 mg PO Q6H PRN #15 tablet 07/26/18 Unknown Rx Lidocaine Viscous 2% 5 ml MM Q3H PRN #120 udc 07/26/18 Unknown Rx traMADol [Ultram] 50 mg PO Q6HR PRN #20 tablet 07/26/18 Unknown Rx ED Physical Exam - General Limitations: No Limitations General appearance: alert, in no apparent distress - Head Head exam: Present: atraumatic, normocephalic - Eye Eye exam: Present: normal appearance, PERRL Pupils: Present: normal accommodation - ENT ENT exam: Present: mucous membranes moist, other (dental carries diffuse with pain to tooth number 4-5 with adjacent gingival swelling and erythema. airway patent. ) - Neck Neck exam: Present: normal inspection - Respiratory Respiratory exam: Present: normal lung sounds bilaterally. Absent: respiratory distress - Cardiovascular Cardiovascular Exam: Present: regular rate, normal rhythm. Absent: systolic murmur, diastolic murmur, rubs, gallop - GI/Abdominal GI/Abdominal exam: Present: soft, normal bowel sounds - Extremities Exam Extremities exam: Present: normal inspection - Back Exam Back exam: Present: normal inspection - Neurological Exam Neurological exam: Present: alert, oriented X3 - Psychiatric Psychiatric exam: Present: normal affect, normal mood - Skin Skin exam: Present: warm, dry, intact, normal color. Absent: rash ED Course Vital Signs 07/26/18 12:34 Temperature 97.9 F Pulse Rate 85 Respiratory 16 Rate Blood Pressure 124/84 O2 Sat by Pulse 99 Oximetry Critical care attestation.: If time is entered above; I have spent that time in minutes in the direct care of this critically ill patient, excluding procedure time. ED Disposition Clinical Impression: Cephalgia, Dental infection Disposition: - TO HOME OR SELFCARE Is pt being admited?: No Does the pt Need Aspirin: No Condition: Stable Instructions: Dental Caries (ED), Acute Headache (ED), Toothache (ED) Prescriptions: Amoxicillin/Potassium Clav [Augmentin 875-125 Tablet] 1 each PO BID #20 tablet Chlorhexidine Mouthwash [Peridex] 15 ml MM BID #1 bottle Ketorolac [Toradol] 10 mg PO Q6H PRN #15 tablet PRN Reason: Pain Lidocaine Viscous 2% 5 ml MM Q3H PRN #120 udc PRN Reason: Pain, Moderate (4-6) traMADol [Ultram] 50 mg PO Q6HR PRN #20 tablet PRN Reason: Pain Referrals: [facility] [Provider Group] - 3-5 Days Forms: Work/School Release Form(ED)
== END 2018-07-26 13:22 | disposition home or self-care (01) ==
LOC: ED 12:05
DX: K02.9 Dental caries, unspecified (principal); J45.909 Unspecified asthma, uncomplicated; F17.200 Nicotine dependence, unspecified, uncomplicated; Z88.5 Allergy status to narcotic agent; Z88.8 Allergy status to other drugs, medicaments and biological substances; Z90.49 Acquired absence of other specified parts of digestive tract; Z98.51 Tubal ligation status
CPT/HCPCS: 99282

== ENCOUNTER 2018-07-30 21:42 | Emergency (ER) | payer SELFPAY ==
[2018-07-30 21:52] VITALS: BP 148/85
== END 2018-07-30 22:00 | disposition left against medical advice (07) ==
LOC: ED 21:42
DX: R11.10 Vomiting, unspecified (principal); Z53.21 Procedure and treatment not carried out due to patient leaving prior to being seen by health care provider

== ENCOUNTER 2019-05-14 18:53 | Emergency (ER) | payer MEDICAID ==
--- NOTE | 2019-05-14 19:20 | Emergency Department Report ---
Blank Doc - Documentation Documentation: 38-year-old female that presents with left foot/ankle pain s/p trip and fall. This initial assessment/diagnostic orders/clinical plan/treatment(s) is/are subject to change based on patient's health status, clinical progression and re- assessment by fellow clinical providers in the ED. Further treatment and workup at subsequent clinical providers discretion. Patient/guardians urged not to elope from the ED as their condition may be serious if not clinically assessed and managed. Initial orders include: 1- Patient sent to [facility] for further evaluation and treatment 2- xrays
--- NOTE | 2019-05-14 20:39 | XRay Report ---
LEFT ANKLE 2 VIEW(S) LEFT FOOT 2 VIEWS INDICATION / CLINICAL INFORMATION: pain s/p fall COMPARISON: None available. FINDINGS: Evaluation is somewhat limited by the absence of oblique views. BONES / JOINT(S): No acute fracture or subluxation. No significant arthritis. Small plantar calcaneal enthesophyte. SOFT TISSUES: No significant abnormality. Signer Name: David Arshad MD Signed: 05/14/2019 8:35 PM Workstation Name: [id number]
[2019-05-14] MEDS ORDERED: traMADol 50 MG TAB PO ONE (22:57)
--- NOTE | 2019-05-14 22:57 | Emergency Department Report ---
ED Lower Extremity HPI - General Chief Complaint: Extremity Injury, Lower Stated Complaint: LT FOOT INJURY/FALL Time Seen by Provider: 05/14/19 19:19 Source: patient Mode of arrival: Ambulatory Limitations: No Limitations - History of Present Illness Initial Comments: ms. Kaplan is s 38 y/o white female who presents for left foot/ankle pain s/p trip and fall. states unable to bear weight. subjective swelling , there is no deformity, no numbness or tingling. pt is described as 3/10 aching. MD Complaint: ankle injury, foot injury Onset/Timin -: days(s) Injury: Ankle: Left, Foot: Left Type of Injury: hyperextension Place: home Severity: moderate Severity scale (0 -10): 4 Improves With: nothing Worsens With: weight bearing, movement, palpation Context: fall Associated Symptoms: swelling, tingling, unable to bear weight - Related Data Previous Rx's Medication Instructions Recorded Last Taken Type Ciprofloxacin HCl [Cipro] 250 mg PO BID #6 tablet 10/16/14 Unknown Rx Albuterol Sulfate [Ventolin HFA] 2 puff IH Q4H PRN #1 hfa.aer.ad 09/21/15 Unknown Rx Clarithromycin [Biaxin] 500 mg PO BID #20 tab 09/21/15 Unknown Rx predniSONE [Deltasone] 50 mg PO QDAY #5 tab 09/21/15 Unknown Rx Ibuprofen [Motrin] 800 mg PO Q8HR PRN #30 tablet 02/04/17 Unknown Rx Penicillin Vk [Veetids TAB] 500 mg PO BID #40 tablet 02/04/17 Unknown Rx ALBUTEROL Inhaler (OR & NICU) 2 puff IH QID PRN #1 inhalation 05/23/17 Unknown Rx [ProAir HFA Inhaler] Ibuprofen [Motrin] 800 mg PO Q8HR PRN #30 tablet 05/23/17 Unknown Rx Inhaler, Assist Devices [Space 1 each MC PRN #1 spacer 05/23/17 Unknown Rx Chamber Plus] Ondansetron [Zofran Odt] 4 mg PO Q8HR #20 tab.rapdis 05/23/17 Unknown Rx predniSONE [Deltasone] 40 mg PO QDAY 5 Days tab 05/23/17 Unknown Rx traMADoL [Ultram] 50 mg PO Q6HR PRN #20 tablet 05/23/17 Unknown Rx Nystas/Diphen/Xyl Visc/Mylanta 15 ml MM Q4H PRN 5 Days ml 07/27/17 Unknown Rx [Magic Mouthwash] Cetirizine HCl [ZyrTEC] 10 mg PO QAM 5 Days #5 capsule 10/10/17 Unknown Rx predniSONE [Prednisone] 50 mg PO QAM 5 Days #5 tablet 10/10/17 Unknown Rx ALBUTEROL Inhaler (OR & NICU) 2 puff IH QID PRN #1 inhalation 11/25/17 Unknown Rx [ProAir HFA Inhaler] predniSONE [Deltasone] 3 tab PO DAILY 5 Days #15 tablet 11/25/17 Unknown Rx ALBUTEROL Inhaler (OR & NICU) 2 puff IH QID PRN #1 inhalation 01/26/18 Unknown Rx [ProAir HFA Inhaler] Prednisone [predniSONE 10 mg 10 mg PO .TAPER #1 tab.ds.pk 01/26/18 Unknown Rx (6-Day Pack, 21 Tabs)] Azithromycin [Zithromax Z-HUMBERTO] 1 dose PO DAILY 5 Days tab 02/01/18 Unknown Rx Ibuprofen [Motrin 800 MG tab] 800 mg PO Q8H PRN #30 tablet 02/01/18 Unknown Rx predniSONE [Deltasone] 40 mg PO QDAY 5 Days tablet 02/01/18 Unknown Rx ALBUTEROL NEB's [Proventil 0.083% 2.5 mg IH TID PRN #270 ml 05/05/18 Unknown Rx NEBS] Benzonatate [Tessalon Perles] 100 mg PO Q8HR #15 capsule 05/05/18 Unknown Rx Prednisone [predniSONE 10 mg 10 mg PO .TAPER #1 tab.ds.pk 05/05/18 Unknown Rx (6-Day Pack, 21 Tabs)] Clindamycin [Clindamycin CAP] 300 mg PO Q8H #21 cap 05/31/18 Unknown Rx Prednisone [predniSONE 10 mg 10 mg PO .TAPER #1 tab.ds.pk 05/31/18 Unknown Rx (6-Day Pack, 21 Tabs)] diphenhydrAMINE [Benadryl CAP] 25 mg PO Q6HR PRN #20 capsule 05/31/18 Unknown Rx Ibuprofen [Motrin] 600 mg PO Q8H PRN #20 tablet 06/12/18 Unknown Rx Amoxicillin/Potassium Clav 1 each PO BID #20 tablet 07/26/18 Unknown Rx [Augmentin 875-125 Tablet] Chlorhexidine Mouthwash [Peridex] 15 ml MM BID #1 bottle 07/26/18 Unknown Rx Ketorolac [Toradol] 10 mg PO Q6H PRN #15 tablet 07/26/18 Unknown Rx Lidocaine Viscous 2% 5 ml MM Q3H PRN #120 udc 07/26/18 Unknown Rx Naloxone HCl [Narcan Nasal [place]] 4 mg NS Q1HR PRN #1 spray 02/04/19 Unknown Rx Naproxen 500 mg PO BID PRN #30 tablet 05/14/19 Unknown Rx Allergies Allergy/AdvReac Type Severity Reaction Status Date / Time cyclobenzaprine HCl Allergy Itching Verified 04/24/17 16:44 [From Flexeril] trazodone Allergy Itching Verified 01/26/18 09:29 ED Review of Systems ROS: Stated complaint: LT FOOT INJURY/FALL Other details as noted in HPI Constitutional: denies: chills, fever Eyes: denies: eye pain, eye discharge, vision change ENT: denies: ear pain, throat pain Respiratory: denies: cough, shortness of breath, wheezing Cardiovascular: denies: chest pain, palpitations Endocrine: no symptoms reported Gastrointestinal: denies: abdominal pain, nausea, diarrhea Genitourinary: denies: urgency, dysuria, discharge Musculoskeletal: joint swelling, other (ankle pain) Skin: denies: rash, lesions Neurological: denies: headache, weakness, paresthesias Psychiatric: denies: anxiety, depression Hematological/Lymphatic: denies: easy bleeding, easy bruising ED Past Medical Hx - Past Medical History Previous Medical History?: Yes Hx Congestive Heart Failure: No Hx Diabetes: No Hx Asthma: Yes Hx COPD: No Additional medical history: History of ovarian cysts. History of pancreatitis - Surgical History Past Surgical History?: Yes Hx Cholecystectomy: Yes Additional Surgical History: tubal ligation. Right knee arthroscopy for mensical tear 12/01/13 - Family History Family history: no significant - Social History Smoking Status: Current Every Day Smoker Substance Use Type: None - Medications Home Medications: Home Medications Medication Instructions Recorded Confirmed Last Taken Type Ciprofloxacin HCl [Cipro] 250 mg PO BID #6 tablet 10/16/14 Unknown Rx Albuterol Sulfate [Ventolin HFA] 2 puff IH Q4H PRN #1 hfa.aer.ad 09/21/15 Unknown Rx Clarithromycin [Biaxin] 500 mg PO BID #20 tab 09/21/15 Unknown Rx predniSONE [Deltasone] 50 mg PO QDAY #5 tab 09/21/15 Unknown Rx Ibuprofen [Motrin] 800 mg PO Q8HR PRN #30 tablet 02/04/17 Unknown Rx Penicillin Vk [Veetids TAB] 500 mg PO BID #40 tablet 02/04/17 Unknown Rx ALBUTEROL Inhaler (OR & NICU) 2 puff IH QID PRN #1 inhalation 05/23/17 Unknown Rx [ProAir HFA Inhaler] Ibuprofen [Motrin] 800 mg PO Q8HR PRN #30 tablet 05/23/17 Unknown Rx Inhaler, Assist Devices [Space 1 each MC PRN #1 spacer 05/23/17 Unknown Rx Chamber Plus] Ondansetron [Zofran Odt] 4 mg PO Q8HR #20 tab.rapdis 05/23/17 Unknown Rx predniSONE [Deltasone] 40 mg PO QDAY 5 Days tab 05/23/17 Unknown Rx traMADoL [Ultram] 50 mg PO Q6HR PRN #20 tablet 05/23/17 Unknown Rx Nystas/Diphen/Xyl Visc/Mylanta 15 ml MM Q4H PRN 5 Days ml 07/27/17 Unknown Rx [Magic Mouthwash] Cetirizine HCl [ZyrTEC] 10 mg PO QAM 5 Days #5 capsule 10/10/17 Unknown Rx predniSONE [Prednisone] 50 mg PO QAM 5 Days #5 tablet 10/10/17 Unknown Rx ALBUTEROL Inhaler (OR & NICU) 2 puff IH QID PRN #1 inhalation 11/25/17 Unknown Rx [ProAir HFA Inhaler] predniSONE [Deltasone] 3 tab PO DAILY 5 Days #15 tablet 11/25/17 Unknown Rx ALBUTEROL Inhaler (OR & NICU) 2 puff IH QID PRN #1 inhalation 01/26/18 Unknown Rx [ProAir HFA Inhaler] Prednisone [predniSONE 10 mg 10 mg PO .TAPER #1 tab.ds.pk 01/26/18 Unknown Rx (6-Day Pack, 21 Tabs)] Azithromycin [Zithromax Z-HUMBERTO] 1 dose PO DAILY 5 Days tab 02/01/18 Unknown Rx Ibuprofen [Motrin 800 MG tab] 800 mg PO Q8H PRN #30 tablet 02/01/18 Unknown Rx predniSONE [Deltasone] 40 mg PO QDAY 5 Days tablet 02/01/18 Unknown Rx ALBUTEROL NEB's [Proventil 0.083% 2.5 mg IH TID PRN #270 ml 05/05/18 Unknown Rx NEBS] Benzonatate [Tessalon Perles] 100 mg PO Q8HR #15 capsule 05/05/18 Unknown Rx Prednisone [predniSONE 10 mg 10 mg PO .TAPER #1 tab.ds.pk 05/05/18 Unknown Rx (6-Day Pack, 21 Tabs)] Clindamycin [Clindamycin CAP] 300 mg PO Q8H #21 cap 05/31/18 Unknown Rx Prednisone [predniSONE 10 mg 10 mg PO .TAPER #1 tab.ds.pk 05/31/18 Unknown Rx (6-Day Pack, 21 Tabs)] diphenhydrAMINE [Benadryl CAP] 25 mg PO Q6HR PRN #20 capsule 05/31/18 Unknown Rx Ibuprofen [Motrin] 600 mg PO Q8H PRN #20 tablet 06/12/18 Unknown Rx Amoxicillin/Potassium Clav 1 each PO BID #20 tablet 07/26/18 Unknown Rx [Augmentin 875-125 Tablet] Chlorhexidine Mouthwash [Peridex] 15 ml MM BID #1 bottle 07/26/18 Unknown Rx Ketorolac [Toradol] 10 mg PO Q6H PRN #15 tablet 07/26/18 Unknown Rx Lidocaine Viscous 2% 5 ml MM Q3H PRN #120 udc 07/26/18 Unknown Rx Naloxone HCl [Narcan Nasal [place]] 4 mg NS Q1HR PRN #1 spray 02/04/19 Unknown Rx Naproxen 500 mg PO BID PRN #30 tablet 05/14/19 Unknown Rx ED Physical Exam - General Limitations: No Limitations General appearance: alert, in no apparent distress - Head Head exam: Present: atraumatic, normocephalic - Eye Eye exam: Present: normal appearance, PERRL, EOMI - ENT ENT exam: Present: mucous membranes moist - Neck Neck exam: Present: normal inspection, full ROM. Absent: tenderness - Respiratory Respiratory exam: Present: normal lung sounds bilaterally. Absent: respiratory distress, wheezes, stridor, chest wall tenderness - Cardiovascular Cardiovascular Exam: Present: regular rate, normal heart sounds - GI/Abdominal GI/Abdominal exam: Present: soft, normal bowel sounds. Absent: distended, tenderness, bruit, hernia - Rectal Rectal exam: Present: deferred - External exam: Present: other (deferred ) - Extremities Exam Extremities exam: Present: normal inspection, full ROM, tenderness (left lateral ankle ), normal capillary refill, joint swelling. Absent: pedal edema, calf tenderness - Expanded Lower Extremity Exam Left Ankle exam: Present: normal inspection, full ROM, swelling. Absent: tenderness Foot/Toe exam: Present: full ROM, tenderness, swelling. Absent: abrasion, laceration, ecchymosis, crepidus, dislocation, erythema, amputation, puncture wound, foreign body, calcaneal tenderness, tenderness at base of 5th metatarsal, nail avulsion, subungual hematoma Neuro vascular tendon exam: Present: no vascular compromise. Absent: pulse deficit, motor deficit, sensory deficit, tendon deficit, foot drop Gait: Positive: observed and limited by pain - Back Exam Back exam: Present: normal inspection, full ROM, rash noted. Absent: tenderness, CVA tenderness (R), CVA tenderness (L), muscle spasm, paraspinal tenderness, vertebral tenderness - Neurological Exam Neurological exam: Present: alert, oriented X3, CN II-XII intact, normal gait. Absent: reflexes normal - Psychiatric Psychiatric exam: Present: normal affect, normal mood - Skin Skin exam: Present: warm, dry, intact, normal color. Absent: rash ED Course Vital Signs 05/14/19 05/14/19 19:08 19:20 Temperature 99.5 F 99.5 F Pulse Rate 103 H 100 H Respiratory 18 18 Rate Blood Pressure 134/89 134/89 O2 Sat by Pulse 96 97 Oximetry ED Lower Extremity MDM - Radiology Data Radiology results: report reviewed, image reviewed Ordering Physician: JAVIER ATKINS NP Date of Service: 05/14/19 Procedure(s): XR foot 2V LT Accession Number(s): [id number] cc: JAVIER ATKINS NP Fluoro Time In Minutes: LEFT ANKLE 2 VIEW(S) LEFT FOOT 2 VIEWS INDICATION / CLINICAL INFORMATION: pain s/p fall COMPARISON: None available. FINDINGS: Evaluation is somewhat limited by the absence of oblique views. BONES / JOINT(S): No acute fracture or subluxation. No significant arthritis. Small plantar calcaneal enthesophyte. SOFT TISSUES: No significant abnormality. Signer Name: David Arshad MD Signed: 05/14/2019 8:35 PM Workstation Name: [id number] Transcribed By: ANNABELLA Dictated By: David Arshad MD Electronically Authenticated By: David Arshad MD Signed Date/Time: 05/14/192034 DD/ 32 TD/TT: Ordering Physician: JAVIER ATKINS NP Date of Service: 05/14/19 Procedure(s): XR ankle 2V LT Accession Number(s): [id number] cc: JAVIER ATKINS NP Fluoro Time In Minutes: LEFT ANKLE 2 VIEW(S) LEFT FOOT 2 VIEWS INDICATION / CLINICAL INFORMATION: pain s/p fall COMPARISON: None available. FINDINGS: Evaluation is somewhat limited by the absence of oblique views. BONES / JOINT(S): No acute fracture or subluxation. No significant arthritis. Small plantar calcaneal enthesophyte. SOFT TISSUES: No significant abnormality. Signer Name: David Arshad MD Signed: 05/14/2019 8:35 PM Workstation Name: [id number] Transcribed By: ANNABELLA Dictated By: David Arshad MD Electronically Authenticated By: David Arshad MD Signed Date/Time: 05/14/192034 DD/ 32 TD/TT: - Medical Decision Making xray small heel spur, mild ankle soft tissue swelling no fracture on disclocation plan: nsaid , rice therapy, cruthes follow up with Ortho. jpt verbalized agreement and understanding of discharge paln. Critical care attestation.: If time is entered above; I have spent that time in minutes in the direct care of this critically ill patient, excluding procedure time. ED Disposition Clinical Impression: Left ankle sprain Qualifiers: Encounter type: initial encounter Involved ligament of ankle: unspecified ligament Qualified Code(s): S93.402A - Sprain of unspecified ligament of left ankle, initial encounter Disposition: - TO HOME OR SELFCARE Is pt being admited?: No Does the pt Need Aspirin: No Condition: Stable Instructions: Ankle Sprain (ED), Osteoarthritis (ED), Ankle Stirrup Splint (ED), Ankle Exercises (GEN) Prescriptions: Naproxen 500 mg PO BID PRN #30 tablet PRN Reason: Pain , Severe (7-10) Referrals: PRIMARY CARE,MD [Primary Care Provider] - 3-5 Days Forms: Work/School Release Form(ED) Time of Disposition: 23:15
[2019-05-15 00:15] VITALS: BP 127/79
== END 2019-05-15 00:10 | disposition home or self-care (01) ==
LOC: ED 18:53
DX: S93.402A Sprain of unspecified ligament of left ankle, initial encounter (principal); J45.909 Unspecified asthma, uncomplicated; F17.200 Nicotine dependence, unspecified, uncomplicated; Z98.51 Tubal ligation status; Z90.49 Acquired absence of other specified parts of digestive tract; Z79.899 Other long term (current) drug therapy; Z98.890 Other specified postprocedural states; W01.0XXA Fall on same level from slipping, tripping and stumbling without subsequent striking against object, initial encounter; Y93.89 Activity, other specified; Y92.89 Other specified places as the place of occurrence of the external cause; Y99.8 Other external cause status

== ENCOUNTER 2019-07-31 04:09 | Emergency (ER) | payer MEDICAID ==
[2019-07-31 04:32] LABS: Basophils # (Auto) 0.1 K/mm3 (0.0-0.1); Basophils % (Auto) 0.7 % (0.0-1.8); Eosinophils # (Auto) 0.2 K/mm3 (0.0-0.4); Eosinophils % (Auto) 2.4 % (0.0-4.3); Hematocrit 44.9 % (30.3-42.9); Hemoglobin 15.3 gm/dl (10.1-14.3); Lymphocytes # (Auto) 4.5 K/mm3 (1.2-5.4); Lymphocytes % (Auto) 49.2 % (13.4-35.0); Mean Corpuscular HGB Conc 34 % (30-34); Mean Corpuscular Volume 93 fl (79-97); Monocytes # (Auto) 0.7 K/mm3 (0.0-0.8); Monocytes % (Auto) 7.2 % (0.0-7.3); Platelet Count 285 K/mm3 (140-440); Red Blood Count 4.82 M/mm3 (3.65-5.03)
[2019-07-31 04:50] LABS: Alanine Aminotransferase 13 units/L (7-56); Albumin 4.5 g/dL (3.9-5); BUN/Creatinine Ratio 19; Blood Urea Nitrogen 13 mg/dL (7-17); Calcium 9.2 mg/dL (8.4-10.2); Hemolysis Index 31
[2019-07-31] MEDS ORDERED: ONDANSETRON 4 MG ODT TAB PO ONE (05:00)
[2019-07-31 05:30] LABS: Bacteria,Urine 1+ /HPF (Negative); Bilirubin,Urine NEG (Negative); Blood,Urine LG (Negative); Color,Urine Amber (Yellow); Mucus,Urine 3+ /HPF
[2019-07-31 05:33] LABS: RBC,Urine > 182.0 /HPF (0.0-6.0)
[2019-07-31] MEDS ORDERED: MORPHINE 4 MG/1 ML INJ IV ONE (07:24)
[2019-07-31] MEDS ORDERED: SODIUM CHLORIDE 0.9% 1000 ML 1,000 ML IV ONE (07:24)
[2019-07-31] MEDS ORDERED: ONDANSETRON 4 MG/2 ML INJ IV ONE (07:24)
--- NOTE | 2019-07-31 09:14 | Emergency Department Report ---
ED Abdominal Pain HPI - General Chief Complaint: Abdominal Pain Stated Complaint: ABDOMINAL PAIN Time Seen by Provider: 07/31/19 07:23 Source: patient, EMS Mode of arrival: Wheelchair Limitations: No Limitations - History of Present Illness Initial Comments: This is a 39-year-old female nontoxic, well nourished in appearance, no acute signs of distress presents to the ED with c/o of nausea and vomiting and abdominal pain 1 day. Patient describes vomiting as food content and yellow gastric acid. Patient describes abdominal pain as cramping and aching with level of 8/10 diffuse. Patient denies chest pain, short of breath, fever, chills, headache, stiff neck, numbness or tingling. Patient denies any diarrhea or constipation. Patient denies any recent travels. Patient stated allergies to Flexeril and trazodone. MD Complaint: abdominal pain Location: diffuse Radiation: none Migration to: no migration Severity: mild Severity scale (0 -10): 8 Quality: cramping, aching Improves With: nothing Worsens With: nothing Associated Symptoms: nausea, vomiting. denies: diarrhea, fever, chills, co nstipation, dysuria, hematemesis, hematochezia, melena, hematuria, anorexia, syncope - Related Data Previous Rx's Medication Instructions Recorded Last Taken Type Ciprofloxacin HCl [Cipro] 250 mg PO BID #6 tablet 10/16/14 Unknown Rx Albuterol Sulfate [Ventolin HFA] 2 puff IH Q4H PRN #1 hfa.aer.ad 09/21/15 Unknown Rx Clarithromycin [Biaxin] 500 mg PO BID #20 tab 09/21/15 Unknown Rx predniSONE [Deltasone] 50 mg PO QDAY #5 tab 09/21/15 Unknown Rx Ibuprofen [Motrin] 800 mg PO Q8HR PRN #30 tablet 02/04/17 Unknown Rx Penicillin Vk [Veetids TAB] 500 mg PO BID #40 tablet 02/04/17 Unknown Rx Albuterol INH(or & Nicu Only) 2 puff IH QID PRN #1 inhalation 05/23/17 Unknown Rx [ProAir HFA Inhaler] Ibuprofen [Motrin] 800 mg PO Q8HR PRN #30 tablet 05/23/17 Unknown Rx Inhaler, Assist Devices [Space 1 each MC PRN #1 spacer 05/23/17 Unknown Rx Chamber Plus] Ondansetron [Zofran Odt] 4 mg PO Q8HR #20 tab.rapdis 05/23/17 Unknown Rx predniSONE [Deltasone] 40 mg PO QDAY 5 Days tab 05/23/17 Unknown Rx traMADoL [Ultram] 50 mg PO Q6HR PRN #20 tablet 05/23/17 Unknown Rx Nystas/Diphen/Xyl Visc/Mylanta 15 ml MM Q4H PRN 5 Days ml 07/27/17 Unknown Rx [Magic Mouthwash] Cetirizine HCl [ZyrTEC] 10 mg PO QAM 5 Days #5 capsule 10/10/17 Unknown Rx predniSONE [Prednisone] 50 mg PO QAM 5 Days #5 tablet 10/10/17 Unknown Rx Albuterol INH(or & Nicu Only) 2 puff IH QID PRN #1 inhalation 11/25/17 Unknown Rx [ProAir HFA Inhaler] predniSONE [Deltasone] 3 tab PO DAILY 5 Days #15 tablet 11/25/17 Unknown Rx Albuterol INH(or & Nicu Only) 2 puff IH QID PRN #1 inhalation 01/26/18 Unknown Rx [ProAir HFA Inhaler] Prednisone [predniSONE 10 mg 10 mg PO .TAPER #1 tab.ds.pk 01/26/18 Unknown Rx (6-Day Pack, 21 Tabs)] Azithromycin [Zithromax Z-HUMBERTO] 1 dose PO DAILY 5 Days tab 02/01/18 Unknown Rx Ibuprofen [Motrin 800 MG tab] 800 mg PO Q8H PRN #30 tablet 02/01/18 Unknown Rx predniSONE [Deltasone] 40 mg PO QDAY 5 Days tablet 02/01/18 Unknown Rx ALBUTEROL NEB's [Proventil 0.083% 2.5 mg IH TID PRN #270 ml 05/05/18 Unknown Rx NEBS] Benzonatate [Tessalon Perles] 100 mg PO Q8HR #15 capsule 05/05/18 Unknown Rx Prednisone [predniSONE 10 mg 10 mg PO .TAPER #1 tab.ds.pk 05/05/18 Unknown Rx (6-Day Pack, 21 Tabs)] Clindamycin [Clindamycin CAP] 300 mg PO Q8H #21 cap 05/31/18 Unknown Rx Prednisone [predniSONE 10 mg 10 mg PO .TAPER #1 tab.ds.pk 05/31/18 Unknown Rx (6-Day Pack, 21 Tabs)] diphenhydrAMINE [Benadryl CAP] 25 mg PO Q6HR PRN #20 capsule 05/31/18 Unknown Rx Ibuprofen [Motrin] 600 mg PO Q8H PRN #20 tablet 06/12/18 Unknown Rx Amoxicillin/Potassium Clav 1 each PO BID #20 tablet 07/26/18 Unknown Rx [Augmentin 875-125 Tablet] Chlorhexidine Mouthwash [Peridex] 15 ml MM BID #1 bottle 07/26/18 Unknown Rx Ketorolac [Toradol] 10 mg PO Q6H PRN #15 tablet 07/26/18 Unknown Rx Lidocaine Viscous 2% 5 ml MM Q3H PRN #120 udc 07/26/18 Unknown Rx Naloxone HCl [Narcan Nasal [place]] 4 mg NS Q1HR PRN #1 spray 02/04/19 Unknown Rx Naproxen 500 mg PO BID PRN #30 tablet 05/14/19 Unknown Rx Ketorolac [Toradol] 10 mg PO Q6H PRN #10 tablet 07/31/19 Unknown Rx Ondansetron [Zofran Odt] 4 mg PO Q8HR PRN #20 tab.rapdis 07/31/19 Unknown Rx Sulfamethoxazole/Trimethoprim 1 each PO BID #14 tablet 07/31/19 Unknown Rx [Bactrim DS TAB] Allergies Allergy/AdvReac Type Severity Reaction Status Date / Time cyclobenzaprine HCl Allergy Itching Verified 04/24/17 16:44 [From Flexeril] trazodone Allergy Itching Verified 01/26/18 09:29 ED Review of Systems ROS: Stated complaint: ABDOMINAL PAIN Other details as noted in HPI Constitutional: denies: chills, fever Eyes: denies: eye pain, eye discharge, vision change ENT: denies: ear pain, throat pain Respiratory: denies: cough, shortness of breath, wheezing Cardiovascular: denies: chest pain, palpitations Endocrine: no symptoms reported Gastrointestinal: abdominal pain, nausea, vomiting. denies: diarrhea Genitourinary: denies: urgency, dysuria, discharge Musculoskeletal: denies: back pain, joint swelling, arthralgia Skin: denies: rash, lesions Neurological: denies: headache, weakness, paresthesias Psychiatric: denies: anxiety, depression Hematological/Lymphatic: denies: easy bleeding, easy bruising ED Past Medical Hx - Past Medical History Previous Medical History?: Yes Hx Congestive Heart Failure: No Hx Diabetes: No Hx Asthma: Yes Hx COPD: No Additional medical history: History of ovarian cysts. History of pancreatitis - Surgical History Past Surgical History?: Yes Hx Cholecystectomy: Yes Additional Surgical History: tubal ligation. Right knee arthroscopy for mensical tear 12/01/13 - Social History Smoking Status: Current Every Day Smoker Substance Use Type: None - Medications Home Medications: Home Medications Medication Instructions Recorded Confirmed Last Taken Type Ciprofloxacin HCl [Cipro] 250 mg PO BID #6 tablet 10/16/14 Unknown Rx Albuterol Sulfate [Ventolin HFA] 2 puff IH Q4H PRN #1 hfa.aer.ad 09/21/15 Unknown Rx Clarithromycin [Biaxin] 500 mg PO BID #20 tab 09/21/15 Unknown Rx predniSONE [Deltasone] 50 mg PO QDAY #5 tab 09/21/15 Unknown Rx Ibuprofen [Motrin] 800 mg PO Q8HR PRN #30 tablet 02/04/17 Unknown Rx Penicillin Vk [Veetids TAB] 500 mg PO BID #40 tablet 02/04/17 Unknown Rx Albuterol INH(or & Nicu Only) 2 puff IH QID PRN #1 inhalation 05/23/17 Unknown Rx [ProAir HFA Inhaler] Ibuprofen [Motrin] 800 mg PO Q8HR PRN #30 tablet 05/23/17 Unknown Rx Inhaler, Assist Devices [Space 1 each MC PRN #1 spacer 05/23/17 Unknown Rx Chamber Plus] Ondansetron [Zofran Odt] 4 mg PO Q8HR #20 tab.rapdis 05/23/17 Unknown Rx predniSONE [Deltasone] 40 mg PO QDAY 5 Days tab 05/23/17 Unknown Rx traMADoL [Ultram] 50 mg PO Q6HR PRN #20 tablet 05/23/17 Unknown Rx Nystas/Diphen/Xyl Visc/Mylanta 15 ml MM Q4H PRN 5 Days ml 07/27/17 Unknown Rx [Magic Mouthwash] Cetirizine HCl [ZyrTEC] 10 mg PO QAM 5 Days #5 capsule 10/10/17 Unknown Rx predniSONE [Prednisone] 50 mg PO QAM 5 Days #5 tablet 10/10/17 Unknown Rx Albuterol INH(or & Nicu Only) 2 puff IH QID PRN #1 inhalation 11/25/17 Unknown Rx [ProAir HFA Inhaler] predniSONE [Deltasone] 3 tab PO DAILY 5 Days #15 tablet 11/25/17 Unknown Rx Albuterol INH(or & Nicu Only) 2 puff IH QID PRN #1 inhalation 01/26/18 Unknown Rx [ProAir HFA Inhaler] Prednisone [predniSONE 10 mg 10 mg PO .TAPER #1 tab.ds.pk 01/26/18 Unknown Rx (6-Day Pack, 21 Tabs)] Azithromycin [Zithromax Z-HUMBERTO] 1 dose PO DAILY 5 Days tab 02/01/18 Unknown Rx Ibuprofen [Motrin 800 MG tab] 800 mg PO Q8H PRN #30 tablet 02/01/18 Unknown Rx predniSONE [Deltasone] 40 mg PO QDAY 5 Days tablet 02/01/18 Unknown Rx ALBUTEROL NEB's [Proventil 0.083% 2.5 mg IH TID PRN #270 ml 05/05/18 Unknown Rx NEBS] Benzonatate [Tessalon Perles] 100 mg PO Q8HR #15 capsule 05/05/18 Unknown Rx Prednisone [predniSONE 10 mg 10 mg PO .TAPER #1 tab.ds.pk 05/05/18 Unknown Rx (6-Day Pack, 21 Tabs)] Clindamycin [Clindamycin CAP] 300 mg PO Q8H #21 cap 05/31/18 Unknown Rx Prednisone [predniSONE 10 mg 10 mg PO .TAPER #1 tab.ds.pk 05/31/18 Unknown Rx (6-Day Pack, 21 Tabs)] diphenhydrAMINE [Benadryl CAP] 25 mg PO Q6HR PRN #20 capsule 05/31/18 Unknown Rx Ibuprofen [Motrin] 600 mg PO Q8H PRN #20 tablet 06/12/18 Unknown Rx Amoxicillin/Potassium Clav 1 each PO BID #20 tablet 07/26/18 Unknown Rx [Augmentin 875-125 Tablet] Chlorhexidine Mouthwash [Peridex] 15 ml MM BID #1 bottle 07/26/18 Unknown Rx Ketorolac [Toradol] 10 mg PO Q6H PRN #15 tablet 07/26/18 Unknown Rx Lidocaine Viscous 2% 5 ml MM Q3H PRN #120 udc 07/26/18 Unknown Rx Naloxone HCl [Narcan Nasal [place]] 4 mg NS Q1HR PRN #1 spray 02/04/19 Unknown Rx Naproxen 500 mg PO BID PRN #30 tablet 05/14/19 Unknown Rx Ketorolac [Toradol] 10 mg PO Q6H PRN #10 tablet 07/31/19 Unknown Rx Ondansetron [Zofran Odt] 4 mg PO Q8HR PRN #20 tab.rapdis 07/31/19 Unknown Rx Sulfamethoxazole/Trimethoprim 1 each PO BID #14 tablet 07/31/19 Unknown Rx [Bactrim DS TAB] ED Physical Exam - General Limitations: No Limitations General appearance: alert, in no apparent distress - Head Head exam: Present: atraumatic, normocephalic - Eye Eye exam: Present: normal appearance - Neck Neck exam: Present: normal inspection, full ROM. Absent: tenderness, meningismus, lymphadenopathy - Respiratory Respiratory exam: Present: normal lung sounds bilaterally. Absent: respiratory distress, wheezes, rales, rhonchi, stridor, chest wall tenderness, accessory muscle use, decreased breath sounds, prolonged expiratory - Cardiovascular Cardiovascular Exam: Present: regular rate, normal rhythm, normal heart sounds. Absent: bradycardia, tachycardia, irregular rhythm, systolic murmur, diastolic murmur, rubs, gallop - GI/Abdominal GI/Abdominal exam: Present: soft, tenderness, normal bowel sounds. Absent: distended, guarding, rebound, rigid, diminished bowel sounds - Extremities Exam Extremities exam: Present: normal inspection, full ROM, normal capillary refill. Absent: tenderness - Back Exam Back exam: Present: normal inspection, full ROM. Absent: tenderness, CVA tenderness (R), CVA tenderness (L), muscle spasm, paraspinal tenderness, vertebral tenderness, rash noted - Neurological Exam Neurological exam: Present: alert, oriented X3, normal gait - Psychiatric Psychiatric exam: Present: normal affect, normal mood - Skin Skin exam: Present: warm, dry, intact, normal color. Absent: rash ED Course Vital Signs 07/31/19 04:12 Temperature 98.5 F Pulse Rate 74 Respiratory 18 Rate Blood Pressure 104/80 O2 Sat by Pulse 97 Oximetry - Reevaluation(s) Reevaluation #1: 07/31/19 09:16 Patient is speaking in full sentences with no signs of distress noted. ED Medical Decision Making - Lab Data Result diagrams: 07/31/19 04:20 07/31/19 04:20 - Radiology Data Radiology results: pending - Medical Decision Making This is a 39-year-old female that presents with kidney stone. Patient is stable and was examined by me. There is no abdominal tenderness. Negative signs of symptoms of appendicitis. Labs obtained. UA obtained. CT of abdomen obtained and dictated by the radiologist. Patient is notified of the report with no qu estions noted by the patient. Vital signs are stable prior to discharge. Patient received medical treatment in the ED which patient stated symptoms has resovled and subsided. Was instructed note to operate any machinery due to possible drowsiness and stated someone will drive the patient home. A by mouth challenge has been obtained and patient tolerated well with no nausea vomiting. Patient was notified of strict precatuions of appendictis symptoms and to return to the ED if symptoms occurs as soon as possible. Patient was also instructed to Follow-up with a primary care doctor in 3-5 days or if symptoms worsen and continue return to emergency room as soon as possible. At time of discharge, the patient does not seem toxic or ill in appearance. No acute signs of distress noted. Patient agrees to discharge treatment plan of care. No further questions noted by the patient. Critical care attestation.: If time is entered above; I have spent that time in minutes in the direct care of this critically ill patient, excluding procedure time. ED Disposition Clinical Impression: Kidney stone on left side UTI (urinary tract infection) Qualifiers: Urinary tract infection type: acute cystitis Hematuria presence: with hematuria Qualified Code(s): N30.01 - Acute cystitis with hematuria Disposition: - TO HOME OR SELFCARE Is pt being admited?: No Does the pt Need Aspirin: No Condition: Stable Instructions: Kidney Stones (ED) Additional Instructions: Follow-up with a primary care doctor in 3-5 days or if symptoms worsen and continue return to emergency room as soon as possible. Prescriptions: Sulfamethoxazole/Trimethoprim [Bactrim DS TAB] 1 each PO BID #14 tablet Ketorolac [Toradol] 10 mg PO Q6H PRN #10 tablet PRN Reason: Pain Ondansetron [Zofran Odt] 4 mg PO Q8HR PRN #20 tab.rapdis PRN Reason: Nausea Referrals: PRIMARY CAREMD [Primary Care Provider] - 3-5 Days TOD GALVAN MD [Staff Physician] - 3-5 Days [facility] [Outside] - 3-5 Days Forms: Work/School Release Form(ED)
--- NOTE | 2019-07-31 11:17 | Cat Scan Report ---
CT ABDOMEN AND PELVIS WITH CONTRAST HISTORY: Abdominal pain. COMPARISON: None TECHNIQUE: Routine abdominal and pelvic CT exam performed following intravenous contrast administrat ion.. 100 cc of Omnipaque 300 was injected intravenously without incident. Consent was obtained prior to the administration of contrast. All CT scans at this location are performed using CT dose reducti on for ALARA by means of automated exposure control. FINDINGS: CT ABDOMEN: Lung Bases: No significant abnormality. Liver: No significant abnormality. Biliary: Status post cholecystectomy with normal bile ducts. Spleen: No significant abnormality. Unenlarged. Pancreas: No significant abnormality. Adrenals: No significant abnormality. Kidneys: The left renal pelvis and proximal left ureter are mildly dilated and there is abhijeet-ureteral stranding. The left ureter is mildly dilated to the urinary bladder. A single 4 mm left upper pole n onobstructive renal calculus and no other calculi. The right kidney is unremarkable. Lymphatics: No lymphadenopathy. Vasculature: No significant abnormality. Bowel/Peritoneum: No significant abnormality. No free air. No free fluid. Appendix not visualized. No pericecal inflammation. CT PELVIC: : Normal uterus and ovaries. No adnexal mass or free fluid. The urinary bladder is normal. Very mil d dilatation of the distal left ureter. No bladder calculus. Lymphatics: No lymphadenopathy. Osseous Structures: No aggressive appearing osseous lesions. Additional Findings: None IMPRESSION: 1. Mild dilatation of the left renal pelvis and left ureter along with periureteral stranding. This s uggests recent stone passage. 2. A single 4 mm left upper pole nonobstructive renal calculus and no other calculi. 3. Status post cholecystectomy and presumed status post appendectomy. Signer Name: Carlos Carrillo MD Signed: 07/31/2019 11:12 AM Workstation Name: [id number]
[2019-07-31] MEDS ORDERED: ACETAMINOPHEN 500 MG TAB PO ONE (12:01)
[2019-07-31 12:10] VITALS: BP 106/74
== END 2019-07-31 12:09 | disposition home or self-care (01) ==
LOC: ED 04:09
DX: N20.0 Calculus of kidney (principal); N39.0 Urinary tract infection, site not specified; R11.2 Nausea with vomiting, unspecified; J45.909 Unspecified asthma, uncomplicated; F17.200 Nicotine dependence, unspecified, uncomplicated; Z98.51 Tubal ligation status; Z90.49 Acquired absence of other specified parts of digestive tract; Z79.1 Long term (current) use of non-steroidal anti-inflammatories (NSAID); Z79.2 Long term (current) use of antibiotics; Z79.899 Other long term (current) drug therapy; Z88.8 Allergy status to other drugs, medicaments and biological substances
CPT/HCPCS: 36415; 74177; 80053; 81001; 83690; 84703; 85025; 87086; 96361; 96374; 96375; 99284; J2270; J2405; J7030; Q9967; Q0162

== ENCOUNTER 2020-09-29 11:16 | Emergency (ER) | payer MEDICAID ==
[2020-09-29 11:31] VITALS: BP 147/89
--- NOTE | 2020-09-29 11:53 | Emergency Department Report ---
ED Back Pain/Injury HPI - General Chief Complaint: Back Pain/Injury Stated Complaint: LOWER BACK PAIN Time Seen by Provider: 09/29/20 11:24 Source: patient Limitations: No Limitations - History of Present Illness Initial Comments: This is a 40-year-old female nontoxic, well nourished in appearance, no acute signs of distress presents to the ED with c/o of acute on chronic lower back pain. Patient stated that yesterday she was moving and developed this pain. Patient denies any pain radiation. Patient denies any trauma. Denies any bladder or bowel instability. Patient denies any urinary symptoms. Denies any fever, chills, nausea, vomiting, headache, stiff neck, chest pain or shortness of breath. Patient denies any numbness or tingling. Patient stated allergies to trazodone and Flexeril. Denies any significant past medical history. Patient stated is currently on her menstrual cycle. MD Complaint: back pain -: days(s) Similar Symptoms Previously: Yes Place: home Radiation: none Severity: mild Severity scale (0 -10): 3 Quality: aching Consistency: intermittent Improves With: immobilization, sitting upright Worsens With: movement, walking Context: while lifting, turning/twisting Associated Symptoms: denies other symptoms. denies: confusion, weakness, chest pain, numbness, difficulty walking, cough, difficulty urinating, diaphoresis, incontinence, fever/chills, constipation, headaches, abdominal pain, loss of appetite, malaise, nausea/vomiting, rash, seizure, shortness of breath, syncope - Related Data Previous Rx's Medication Instructions Recorded Last Taken Type Ciprofloxacin HCl [Cipro] 250 mg PO BID #6 tablet 10/16/14 Unknown Rx Albuterol Sulfate [Ventolin HFA] 2 puff IH Q4H PRN #1 hfa.aer.ad 09/21/15 Unknown Rx Clarithromycin [Biaxin] 500 mg PO BID #20 tab 09/21/15 Unknown Rx predniSONE [Deltasone] 50 mg PO QDAY #5 tab 09/21/15 Unknown Rx Ibuprofen [Motrin] 800 mg PO Q8HR PRN #30 tablet 02/04/17 Unknown Rx Penicillin Vk [Veetids TAB] 500 mg PO BID #40 tablet 02/04/17 Unknown Rx Albuterol Mdi (or & Nicu Only) 2 puff IH QID PRN #1 inhalation 05/23/17 Unknown Rx [ProAir HFA Inhaler] Ibuprofen [Motrin] 800 mg PO Q8HR PRN #30 tablet 05/23/17 Unknown Rx Inhaler, Assist Devices [Space 1 each MC PRN #1 spacer 05/23/17 Unknown Rx Chamber Plus] Ondansetron [Zofran Odt] 4 mg PO Q8HR #20 tab.rapdis 05/23/17 Unknown Rx predniSONE [Deltasone] 40 mg PO QDAY 5 Days tab 05/23/17 Unknown Rx traMADoL [Ultram] 50 mg PO Q6HR PRN #20 tablet 05/23/17 Unknown Rx Nystas/Diphen/Xyl Visc/Mylanta 15 ml MM Q4H PRN 5 Days ml 07/27/17 Unknown Rx [Magic Mouthwash] Cetirizine HCl [ZyrTEC] 10 mg PO QAM 5 Days #5 capsule 10/10/17 Unknown Rx predniSONE [Prednisone] 50 mg PO QAM 5 Days #5 tablet 10/10/17 Unknown Rx Albuterol Mdi (or & Nicu Only) 2 puff IH QID PRN #1 inhalation 11/25/17 Unknown Rx [ProAir HFA Inhaler] predniSONE [Deltasone] 3 tab PO DAILY 5 Days #15 tablet 11/25/17 Unknown Rx Albuterol Mdi (or & Nicu Only) 2 puff IH QID PRN #1 inhalation 01/26/18 Unknown Rx [ProAir HFA Inhaler] Prednisone [predniSONE 10 mg 10 mg PO .TAPER #1 tab.ds.pk 01/26/18 Unknown Rx (6-Day Pack, 21 Tabs)] Azithromycin [Zithromax Z-HUMBERTO] 1 dose PO DAILY 5 Days tab 02/01/18 Unknown Rx Ibuprofen [Motrin 800 MG tab] 800 mg PO Q8H PRN #30 tablet 02/01/18 Unknown Rx predniSONE [Deltasone] 40 mg PO QDAY 5 Days tablet 02/01/18 Unknown Rx ALBUTEROL NEB's [Proventil 0.083% 2.5 mg IH TID PRN #270 ml 05/05/18 Unknown Rx NEBS] Benzonatate [Tessalon Perles] 100 mg PO Q8HR #15 capsule 05/05/18 Unknown Rx Prednisone [predniSONE 10 mg 10 mg PO .TAPER #1 tab.ds.pk 05/05/18 Unknown Rx (6-Day Pack, 21 Tabs)] Clindamycin [Clindamycin CAP] 300 mg PO Q8H #21 cap 05/31/18 Unknown Rx Prednisone [predniSONE 10 mg 10 mg PO .TAPER #1 tab.ds.pk 05/31/18 Unknown Rx (6-Day Pack, 21 Tabs)] diphenhydrAMINE [Benadryl CAP] 25 mg PO Q6HR PRN #20 capsule 05/31/18 Unknown Rx Ibuprofen [Motrin] 600 mg PO Q8H PRN #20 tablet 06/12/18 Unknown Rx Amoxicillin/Potassium Clav 1 each PO BID #20 tablet 07/26/18 Unknown Rx [Augmentin 875-125 Tablet] Chlorhexidine Mouthwash [Peridex] 15 ml MM BID #1 bottle 07/26/18 Unknown Rx Ketorolac [Toradol] 10 mg PO Q6H PRN #15 tablet 07/26/18 Unknown Rx Lidocaine Viscous 2% 5 ml MM Q3H PRN #120 udc 07/26/18 Unknown Rx Naloxone HCl [Narcan Nasal [place]] 4 mg NS Q1HR PRN #1 spray 02/04/19 Unknown Rx Naproxen 500 mg PO BID PRN #30 tablet 05/14/19 Unknown Rx Ketorolac [Toradol] 10 mg PO Q6H PRN #10 tablet 07/31/19 Unknown Rx Ondansetron [Zofran Odt] 4 mg PO Q8HR PRN #20 tab.rapdis 07/31/19 Unknown Rx Sulfamethoxazole/Trimethoprim 1 each PO BID #14 tablet 07/31/19 Unknown Rx [Bactrim DS TAB] Naproxen 500 mg PO Q12H PRN #12 tablet 09/29/20 Unknown Rx Sulfamethoxazole/Trimethoprim 1 each PO BID #14 tablet 09/29/20 Unknown Rx [Bactrim DS TAB] methOCARBAMOL [Robaxin TAB] 500 mg PO BID PRN #14 tab 09/29/20 Unknown Rx Allergies Allergy/AdvReac Type Severity Reaction Status Date / Time cyclobenzaprine HCl Allergy Itching Verified 01/10/20 07:09 [From Flexeril] trazodone Allergy Itching Verified 01/10/20 07:09 ED Review of Systems ROS: Stated complaint: LOWER BACK PAIN Other details as noted in HPI Constitutional: denies: chills, fever Eyes: denies: eye pain, eye discharge, vision change ENT: denies: ear pain, throat pain Respiratory: denies: cough, shortness of breath, wheezing Cardiovascular: denies: chest pain, palpitations Endocrine: no symptoms reported Gastrointestinal: denies: abdominal pain, nausea, diarrhea Genitourinary: denies: urgency, dysuria, discharge Musculoskeletal: back pain. denies: joint swelling, arthralgia Skin: denies: rash, lesions Neurological: denies: headache, weakness, paresthesias Psychiatric: denies: anxiety, depression Hematological/Lymphatic: denies: easy bleeding, easy bruising ED Past Medical Hx - Past Medical History Previous Medical History?: Yes Hx Congestive Heart Failure: No Hx Diabetes: No Hx Asthma: Yes Hx COPD: No Additional medical history: History of ovarian cysts. History of pancreatitis - Surgical History Past Surgical History?: Yes Hx Cholecystectomy: Yes Additional Surgical History: tubal ligation. Right knee arthroscopy for mensical tear 12/01/13 - Social History Smoking Status: Current Every Day Smoker Substance Use Type: None - Medications Home Medications: Home Medications Medication Instructions Recorded Confirmed Last Taken Type Ciprofloxacin HCl [Cipro] 250 mg PO BID #6 tablet 10/16/14 Unknown Rx Albuterol Sulfate [Ventolin HFA] 2 puff IH Q4H PRN #1 hfa.aer.ad 09/21/15 Unknown Rx Clarithromycin [Biaxin] 500 mg PO BID #20 tab 09/21/15 Unknown Rx predniSONE [Deltasone] 50 mg PO QDAY #5 tab 09/21/15 Unknown Rx Ibuprofen [Motrin] 800 mg PO Q8HR PRN #30 tablet 02/04/17 Unknown Rx Penicillin Vk [Veetids TAB] 500 mg PO BID #40 tablet 02/04/17 Unknown Rx Albuterol Mdi (or & Nicu Only) 2 puff IH QID PRN #1 inhalation 05/23/17 Unknown Rx [ProAir HFA Inhaler] Ibuprofen [Motrin] 800 mg PO Q8HR PRN #30 tablet 05/23/17 Unknown Rx Inhaler, Assist Devices [Space 1 each MC PRN #1 spacer 05/23/17 Unknown Rx Chamber Plus] Ondansetron [Zofran Odt] 4 mg PO Q8HR #20 tab.rapdis 05/23/17 Unknown Rx predniSONE [Deltasone] 40 mg PO QDAY 5 Days tab 05/23/17 Unknown Rx traMADoL [Ultram] 50 mg PO Q6HR PRN #20 tablet 05/23/17 Unknown Rx Nystas/Diphen/Xyl Visc/Mylanta 15 ml MM Q4H PRN 5 Days ml 07/27/17 Unknown Rx [Magic Mouthwash] Cetirizine HCl [ZyrTEC] 10 mg PO QAM 5 Days #5 capsule 10/10/17 Unknown Rx predniSONE [Prednisone] 50 mg PO QAM 5 Days #5 tablet 10/10/17 Unknown Rx Albuterol Mdi (or & Nicu Only) 2 puff IH QID PRN #1 inhalation 11/25/17 Unknown Rx [ProAir HFA Inhaler] predniSONE [Deltasone] 3 tab PO DAILY 5 Days #15 tablet 11/25/17 Unknown Rx Albuterol Mdi (or & Nicu Only) 2 puff IH QID PRN #1 inhalation 01/26/18 Unknown Rx [ProAir HFA Inhaler] Prednisone [predniSONE 10 mg 10 mg PO .TAPER #1 tab.ds.pk 01/26/18 Unknown Rx (6-Day Pack, 21 Tabs)] Azithromycin [Zithromax Z-HUMBERTO] 1 dose PO DAILY 5 Days tab 02/01/18 Unknown Rx Ibuprofen [Motrin 800 MG tab] 800 mg PO Q8H PRN #30 tablet 02/01/18 Unknown Rx predniSONE [Deltasone] 40 mg PO QDAY 5 Days tablet 02/01/18 Unknown Rx ALBUTEROL NEB's [Proventil 0.083% 2.5 mg IH TID PRN #270 ml 05/05/18 Unknown Rx NEBS] Benzonatate [Tessalon Perles] 100 mg PO Q8HR #15 capsule 05/05/18 Unknown Rx Prednisone [predniSONE 10 mg 10 mg PO .TAPER #1 tab.ds.pk 05/05/18 Unknown Rx (6-Day Pack, 21 Tabs)] Clindamycin [Clindamycin CAP] 300 mg PO Q8H #21 cap 05/31/18 Unknown Rx Prednisone [predniSONE 10 mg 10 mg PO .TAPER #1 tab.ds.pk 05/31/18 Unknown Rx (6-Day Pack, 21 Tabs)] diphenhydrAMINE [Benadryl CAP] 25 mg PO Q6HR PRN #20 capsule 05/31/18 Unknown Rx Ibuprofen [Motrin] 600 mg PO Q8H PRN #20 tablet 06/12/18 Unknown Rx Amoxicillin/Potassium Clav 1 each PO BID #20 tablet 07/26/18 Unknown Rx [Augmentin 875-125 Tablet] Chlorhexidine Mouthwash [Peridex] 15 ml MM BID #1 bottle 07/26/18 Unknown Rx Ketorolac [Toradol] 10 mg PO Q6H PRN #15 tablet 07/26/18 Unknown Rx Lidocaine Viscous 2% 5 ml MM Q3H PRN #120 udc 07/26/18 Unknown Rx Naloxone HCl [Narcan Nasal [place]] 4 mg NS Q1HR PRN #1 spray 02/04/19 Unknown Rx Naproxen 500 mg PO BID PRN #30 tablet 05/14/19 Unknown Rx Ketorolac [Toradol] 10 mg PO Q6H PRN #10 tablet 07/31/19 Unknown Rx Ondansetron [Zofran Odt] 4 mg PO Q8HR PRN #20 tab.rapdis 07/31/19 Unknown Rx Sulfamethoxazole/Trimethoprim 1 each PO BID #14 tablet 07/31/19 Unknown Rx [Bactrim DS TAB] Naproxen 500 mg PO Q12H PRN #12 tablet 09/29/20 Unknown Rx Sulfamethoxazole/Trimethoprim 1 each PO BID #14 tablet 09/29/20 Unknown Rx [Bactrim DS TAB] methOCARBAMOL [Robaxin TAB] 500 mg PO BID PRN #14 tab 09/29/20 Unknown Rx ED Physical Exam - General Limitations: No Limitations General appearance: alert, in no apparent distress - Head Head exam: Present: atraumatic, normocephalic - Eye Eye exam: Present: normal appearance - Neck Neck exam: Present: normal inspection, full ROM - Respiratory Respiratory exam: Absent: respiratory distress - Cardiovascular Cardiovascular Exam: Present: regular rate - GI/Abdominal GI/Abdominal exam: Present: soft, normal bowel sounds. Absent: distended, tenderness, guarding, rebound, rigid, diminished bowel sounds - Extremities Exam Extremities exam: Present: normal inspection, full ROM, normal capillary refill. Absent: tenderness - Back Exam Back exam: Present: normal inspection, full ROM, paraspinal tenderness (Lumbar paraspinal). Absent: tenderness, CVA tenderness (R), CVA tenderness (L), muscle spasm, vertebral tenderness, rash noted - Expanded Back Exam Expanded Back exam: Absent: saddle anesthesia Back exam: Negative Straight Leg Raising: Left, Right - Neurological Exam Neurological exam: Present: alert, oriented X3, normal gait - Psychiatric Psychiatric exam: Present: normal affect, normal mood - Skin Skin exam: Present: warm, dry, intact, normal color. Absent: rash ED Course Vital Signs 09/29/20 11:28 Temperature 98.3 F Pulse Rate 86 Respiratory 20 Rate Blood Pressure 147/89 O2 Sat by Pulse 99 Oximetry - Reevaluation(s) Reevaluation #1: 09/29/20 12:03 Patient is speaking in full sentences with no signs of distress noted. ED Medical Decision Making - Lab Data Lab Results 09/29/20 Range/Units Unknown Urine Color Red (Yellow) Urine Turbidity Cloudy (Clear) Urine pH TNR Ur Specific [place] TNR Urine Protein TNR Urine Glucose (UA) Color interference (Negative) mg/dL Urine Ketones Color interference (Negative) mg/dL Urine Blood TNR Urine Nitrite TNR Urine Bilirubin Neg (Negative) Urine Urobilinogen TNR Ur Leukocyte Esterase TNR Urine WBC (Auto) 23.0 H (0.0-6.0) /HPF Urine RBC (Auto) 110.0 (0.0-6.0) /HPF Urine HCG, Qual Negative (Negative) - Medical Decision Making This is a 40-year-old female that presents with low back strain vs. UTI. Patient is stable was examined by me. There is no spinal tenderness. There is no cauda equina syndrome during examination. No bladder or bowel instability. Patient is discharged with bactrm, muscle relaxant and Motrin. Patient was instructed not to operate any machinery while taking muscle relaxant as they cause her drowsiness. No CVA tenderness noted on exam. Patient was referred to Follow-up with a primary care doctor in 3-5 days or if symptoms worsen and continue return to emergency room as soon as possible. At time of discharge, the patient does not seem toxic or ill in appearance. No acute signs of distress noted. Patient agrees to discharge treatment plan of care. No further questions noted by the patient. This chart is dictated with using [employer] Critical care attestation.: If time is entered above; I have spent that time in minutes in the direct care of this critically ill patient, excluding procedure time. ED Disposition Clinical Impression: UTI (urinary tract infection) Qualifiers: Urinary tract infection type: site unspecified Hematuria presence: with hematuria Qualified Code(s): N39.0 - Urinary tract infection, site not specified; R31.9 - Hematuria, unspecified Low back strain Qualifiers: Encounter type: initial encounter Qualified Code(s): S39.012A - Strain of muscle, fascia and tendon of lower back, initial encounter Disposition: TO HOME OR SELFCARE Is pt being admited?: No Does the pt Need Aspirin: No Condition: Stable Additional Instructions: Follow-up with your primary care doctor in 3-5 days or if symptoms worsen such as bladder or bowel stability, chest pain, short of breath, numbness or tingling sensation in extremities, headache, dizziness, visual changes, nausea vomiting, or abdominal pain, return back to emergency room as was possible. Take naproxen and Robaxin as prescribed. Do not operate heavy machinery while taking Robaxin due to sedation Prescriptions: Sulfamethoxazole/Trimethoprim [Bactrim DS TAB] 1 each PO BID #14 tablet Naproxen 500 mg PO Q12H PRN #12 tablet PRN Reason: Pain , Severe (7-10) methOCARBAMOL [Robaxin TAB] 500 mg PO BID PRN #14 tab PRN Reason: Muscle Spasm Referrals: TOD GALVAN MD [Primary Care Provider] - 3-5 Days PRIMARY CARE, [Referring] - 3-5 Days Forms: Work/School Release Form(ED) Time of Disposition: 12:17
[2020-09-29 11:59] LABS: Bilirubin,Urine NEG (Negative)
[2020-09-29 12:02] LABS: Color,Urine Red (Yellow)
[2020-09-29 12:04] LABS: Blood,Urine TNR (Negative); PH,Urine TNR (5.0-7.0); Protein,Urine TNR mg/dL (Negative); Urobilinogen,Urine TNR mg/dL (<2.0)
[2020-09-29 12:06] LABS: HCG Qualitative,Urine Negative (Negative)
== END 2020-09-29 12:30 | disposition home or self-care (01) ==
LOC: ED 11:16
DX: S39.012A Strain of muscle, fascia and tendon of lower back, initial encounter (principal); N39.0 Urinary tract infection, site not specified; J45.909 Unspecified asthma, uncomplicated; F17.200 Nicotine dependence, unspecified, uncomplicated; Z90.49 Acquired absence of other specified parts of digestive tract; Z98.890 Other specified postprocedural states; Z79.1 Long term (current) use of non-steroidal anti-inflammatories (NSAID); Z79.2 Long term (current) use of antibiotics; Z79.899 Other long term (current) drug therapy; Z88.8 Allergy status to other drugs, medicaments and biological substances; X58.XXXA Exposure to other specified factors, initial encounter; Y93.89 Activity, other specified; Y92.89 Other specified places as the place of occurrence of the external cause; Y99.8 Other external cause status
CPT/HCPCS: 81001; 81025; 87086

== ENCOUNTER 2020-12-20 13:06 | Emergency (ER) | payer MEDICAID | END 2020-12-20 13:10 | disposition left against medical advice (07) | LOC: ED 13:06 | DX: Z04.1 Encounter for examination and observation following transport accident (principal); Z53.21 Procedure and treatment not carried out due to patient leaving prior to being seen by health care provider ==

== ENCOUNTER 2021-04-21 06:37 | Emergency (ER) | payer MEDICAID ==
[2021-04-21 06:56] VITALS: BP 122/85
[2021-04-21 07:35] LABS: Basophils % (Auto) 0.3 % (0.0-1.8); Eosinophils # (Auto) 0.1 K/mm3 (0.0-0.4); Eosinophils % (Auto) 1.3 % (0.0-4.3); Hematocrit 40.9 % (30.3-42.9); Hemoglobin 14.5 gm/dl (10.1-14.3); Lymphocytes # (Auto) 0.9 K/mm3 (1.2-5.4); Mean Corpuscular HGB Conc 35 % (30-34); Mean Corpuscular Volume 91 fl (79-97); Monocytes # (Auto) 0.3 K/mm3 (0.0-0.8); Monocytes % (Auto) 5.4 % (0.0-7.3); Platelet Count 243 K/mm3 (140-440); Red Blood Count 4.48 M/mm3 (3.65-5.03); Red Cell Distribution Width 13.5 % (13.2-15.2)
[2021-04-21 07:42] LABS: Bacteria,Urine 1+ /HPF (Negative); Bilirubin,Urine NEG (Negative); Blood,Urine NEG (Negative); Color,Urine Yellow (Yellow); Mucus,Urine FEW /HPF; Protein,Urine <15 mg/dL mg/dL (Negative); Urobilinogen,Urine < 2.0 mg/dL (<2.0)
[2021-04-21] MEDS ORDERED: ONDANSETRON 4 MG/2 ML INJ IM ONE (07:48)
[2021-04-21] MEDS ORDERED: MORPHINE 4 MG/1 ML INJ IM ONE (07:48)
--- NOTE | 2021-04-21 07:51 | Emergency Department Report ---
ED Abdominal Pain HPI - General Chief Complaint: Abdominal Pain Stated Complaint: STOMACH PAIN Time Seen by Provider: 04/21/21 07:42 Source: patient Mode of arrival: Ambulatory Limitations: No Limitations - History of Present Illness Initial Comments: Patient is 40 years old female with history of kidney stone and pancreatitis. Patient presented to the ER complaining of epigastric abdominal pain that radiated down to her left lower quadrant area. Patient stated that pain started last night. Patient denied any fever or chills. No nausea or vomiting. Patient also denied any urinary symptoms. MD Complaint: abdominal pain -: Last night Location: epigastric Radiation: none Migration to: LLQ Severity scale (0 -10): 8 Quality: cramping Associated Symptoms: denies other symptoms - Related Data Previous Rx's Medication Instructions Recorded Last Taken Type Ciprofloxacin HCl [Cipro] 250 mg PO BID #6 tablet 10/16/14 Unknown Rx Albuterol Sulfate [Ventolin HFA] 2 puff IH Q4H PRN #1 hfa.aer.ad 09/21/15 Unknown Rx Clarithromycin [Biaxin] 500 mg PO BID #20 tab 09/21/15 Unknown Rx predniSONE [Deltasone] 50 mg PO QDAY #5 tab 09/21/15 Unknown Rx Ibuprofen [Motrin] 800 mg PO Q8HR PRN #30 tablet 02/04/17 Unknown Rx Penicillin Vk [Veetids TAB] 500 mg PO BID #40 tablet 02/04/17 Unknown Rx Albuterol Mdi (or & Nicu Only) 2 puff IH QID PRN #1 inhalation 05/23/17 Unknown Rx [ProAir HFA Inhaler] Ibuprofen [Motrin] 800 mg PO Q8HR PRN #30 tablet 05/23/17 Unknown Rx Inhaler, Assist Devices [Space 1 each MC PRN #1 spacer 05/23/17 Unknown Rx Chamber Plus] Ondansetron [Zofran Odt] 4 mg PO Q8HR #20 tab.rapdis 05/23/17 Unknown Rx predniSONE [Deltasone] 40 mg PO QDAY 5 Days tab 05/23/17 Unknown Rx traMADoL [Ultram] 50 mg PO Q6HR PRN #20 tablet 05/23/17 Unknown Rx Nystas/Diphen/Xyl Visc/Mylanta 15 ml MM Q4H PRN 5 Days ml 07/27/17 Unknown Rx [Magic Mouthwash] Cetirizine HCl [ZyrTEC] 10 mg PO QAM 5 Days #5 capsule 10/10/17 Unknown Rx predniSONE [Prednisone] 50 mg PO QAM 5 Days #5 tablet 10/10/17 Unknown Rx Albuterol Mdi (or & Nicu Only) 2 puff IH QID PRN #1 inhalation 11/25/17 Unknown Rx [ProAir HFA Inhaler] predniSONE [Deltasone] 3 tab PO DAILY 5 Days #15 tablet 11/25/17 Unknown Rx Albuterol Mdi (or & Nicu Only) 2 puff IH QID PRN #1 inhalation 01/26/18 Unknown Rx [ProAir HFA Inhaler] Prednisone [predniSONE 10 mg 10 mg PO .TAPER #1 tab.ds.pk 01/26/18 Unknown Rx (6-Day Pack, 21 Tabs)] Azithromycin [Zithromax Z-HUMBERTO] 1 dose PO DAILY 5 Days tab 02/01/18 Unknown Rx Ibuprofen [Motrin 800 MG tab] 800 mg PO Q8H PRN #30 tablet 02/01/18 Unknown Rx predniSONE [Deltasone] 40 mg PO QDAY 5 Days tablet 02/01/18 Unknown Rx ALBUTEROL NEB's [Proventil 0.083% 2.5 mg IH TID PRN #270 ml 05/05/18 Unknown Rx NEBS] Benzonatate [Tessalon Perles] 100 mg PO Q8HR #15 capsule 05/05/18 Unknown Rx Prednisone [predniSONE 10 mg 10 mg PO .TAPER #1 tab.ds.pk 05/05/18 Unknown Rx (6-Day Pack, 21 Tabs)] Clindamycin [Clindamycin CAP] 300 mg PO Q8H #21 cap 05/31/18 Unknown Rx Prednisone [predniSONE 10 mg 10 mg PO .TAPER #1 tab.ds.pk 05/31/18 Unknown Rx (6-Day Pack, 21 Tabs)] diphenhydrAMINE [Benadryl CAP] 25 mg PO Q6HR PRN #20 capsule 05/31/18 Unknown Rx Ibuprofen [Motrin] 600 mg PO Q8H PRN #20 tablet 06/12/18 Unknown Rx Amoxicillin/Potassium Clav 1 each PO BID #20 tablet 07/26/18 Unknown Rx [Augmentin 875-125 Tablet] Chlorhexidine Mouthwash [Peridex] 15 ml MM BID #1 bottle 07/26/18 Unknown Rx Ketorolac [Toradol] 10 mg PO Q6H PRN #15 tablet 07/26/18 Unknown Rx Lidocaine Viscous 2% 5 ml MM Q3H PRN #120 udc 07/26/18 Unknown Rx Naloxone HCl [Narcan Nasal [place]] 4 mg NS Q1HR PRN #1 spray 02/04/19 Unknown Rx Naproxen 500 mg PO BID PRN #30 tablet 05/14/19 Unknown Rx Ketorolac [Toradol] 10 mg PO Q6H PRN #10 tablet 07/31/19 Unknown Rx Ondansetron [Zofran Odt] 4 mg PO Q8HR PRN #20 tab.rapdis 07/31/19 Unknown Rx Sulfamethoxazole/Trimethoprim 1 each PO BID #14 tablet 07/31/19 Unknown Rx [Bactrim DS TAB] Naproxen 500 mg PO Q12H PRN #12 tablet 09/29/20 Unknown Rx Sulfamethoxazole/Trimethoprim 1 each PO BID #14 tablet 09/29/20 Unknown Rx [Bactrim DS TAB] methOCARBAMOL [Robaxin TAB] 500 mg PO BID PRN #14 tab 09/29/20 Unknown Rx Allergies Allergy/AdvReac Type Severity Reaction Status Date / Time cyclobenzaprine HCl Allergy Itching Verified 01/10/20 07:09 [From Flexeril] trazodone Allergy Itching Verified 01/10/20 07:09 ED Review of Systems ROS: Stated complaint: STOMACH PAIN Other details as noted in HPI Comment: All other systems reviewed and negative Constitutional: denies: chills, fever Cardiovascular: denies: chest pain Gastrointestinal: abdominal pain. denies: nausea, vomiting, diarrhea, constipation, hematemesis Musculoskeletal: denies: back pain Neurological: denies: headache, weakness, numbness, paresthesias ED Past Medical Hx - Past Medical History Hx Congestive Heart Failure: No Hx Diabetes: No Hx Asthma: Yes Hx COPD: No Additional medical history: History of ovarian cysts. History of pancreatitis - Surgical History Hx Cholecystectomy: Yes Additional Surgical History: tubal ligation. Right knee arthroscopy for mensical tear 12/01/13 - Social History Smoking Status: Current Every Day Smoker Substance Use Type: None - Medications Home Medications: Home Medications Medication Instructions Recorded Confirmed Last Taken Type Ciprofloxacin HCl [Cipro] 250 mg PO BID #6 tablet 10/16/14 Unknown Rx Albuterol Sulfate [Ventolin HFA] 2 puff IH Q4H PRN #1 hfa.aer.ad 09/21/15 Unknown Rx Clarithromycin [Biaxin] 500 mg PO BID #20 tab 09/21/15 Unknown Rx predniSONE [Deltasone] 50 mg PO QDAY #5 tab 09/21/15 Unknown Rx Ibuprofen [Motrin] 800 mg PO Q8HR PRN #30 tablet 02/04/17 Unknown Rx Penicillin Vk [Veetids TAB] 500 mg PO BID #40 tablet 02/04/17 Unknown Rx Albuterol Mdi (or & Nicu Only) 2 puff IH QID PRN #1 inhalation 05/23/17 Unknown Rx [ProAir HFA Inhaler] Ibuprofen [Motrin] 800 mg PO Q8HR PRN #30 tablet 05/23/17 Unknown Rx Inhaler, Assist Devices [Space 1 each MC PRN #1 spacer 05/23/17 Unknown Rx Chamber Plus] Ondansetron [Zofran Odt] 4 mg PO Q8HR #20 tab.rapdis 05/23/17 Unknown Rx predniSONE [Deltasone] 40 mg PO QDAY 5 Days tab 05/23/17 Unknown Rx traMADoL [Ultram] 50 mg PO Q6HR PRN #20 tablet 05/23/17 Unknown Rx Nystas/Diphen/Xyl Visc/Mylanta 15 ml MM Q4H PRN 5 Days ml 07/27/17 Unknown Rx [Magic Mouthwash] Cetirizine HCl [ZyrTEC] 10 mg PO QAM 5 Days #5 capsule 10/10/17 Unknown Rx predniSONE [Prednisone] 50 mg PO QAM 5 Days #5 tablet 10/10/17 Unknown Rx Albuterol Mdi (or & Nicu Only) 2 puff IH QID PRN #1 inhalation 11/25/17 Unknown Rx [ProAir HFA Inhaler] predniSONE [Deltasone] 3 tab PO DAILY 5 Days #15 tablet 11/25/17 Unknown Rx Albuterol Mdi (or & Nicu Only) 2 puff IH QID PRN #1 inhalation 01/26/18 Unknown Rx [ProAir HFA Inhaler] Prednisone [predniSONE 10 mg 10 mg PO .TAPER #1 tab.ds.pk 01/26/18 Unknown Rx (6-Day Pack, 21 Tabs)] Azithromycin [Zithromax Z-HUMBERTO] 1 dose PO DAILY 5 Days tab 02/01/18 Unknown Rx Ibuprofen [Motrin 800 MG tab] 800 mg PO Q8H PRN #30 tablet 02/01/18 Unknown Rx predniSONE [Deltasone] 40 mg PO QDAY 5 Days tablet 02/01/18 Unknown Rx ALBUTEROL NEB's [Proventil 0.083% 2.5 mg IH TID PRN #270 ml 05/05/18 Unknown Rx NEBS] Benzonatate [Tessalon Perles] 100 mg PO Q8HR #15 capsule 05/05/18 Unknown Rx Prednisone [predniSONE 10 mg 10 mg PO .TAPER #1 tab.ds.pk 05/05/18 Unknown Rx (6-Day Pack, 21 Tabs)] Clindamycin [Clindamycin CAP] 300 mg PO Q8H #21 cap 05/31/18 Unknown Rx Prednisone [predniSONE 10 mg 10 mg PO .TAPER #1 tab.ds.pk 05/31/18 Unknown Rx (6-Day Pack, 21 Tabs)] diphenhydrAMINE [Benadryl CAP] 25 mg PO Q6HR PRN #20 capsule 05/31/18 Unknown Rx Ibuprofen [Motrin] 600 mg PO Q8H PRN #20 tablet 06/12/18 Unknown Rx Amoxicillin/Potassium Clav 1 each PO BID #20 tablet 07/26/18 Unknown Rx [Augmentin 875-125 Tablet] Chlorhexidine Mouthwash [Peridex] 15 ml MM BID #1 bottle 07/26/18 Unknown Rx Ketorolac [Toradol] 10 mg PO Q6H PRN #15 tablet 07/26/18 Unknown Rx Lidocaine Viscous 2% 5 ml MM Q3H PRN #120 udc 07/26/18 Unknown Rx Naloxone HCl [Narcan Nasal [place]] 4 mg NS Q1HR PRN #1 spray 02/04/19 Unknown Rx Naproxen 500 mg PO BID PRN #30 tablet 05/14/19 Unknown Rx Ketorolac [Toradol] 10 mg PO Q6H PRN #10 tablet 07/31/19 Unknown Rx Ondansetron [Zofran Odt] 4 mg PO Q8HR PRN #20 tab.rapdis 07/31/19 Unknown Rx Sulfamethoxazole/Trimethoprim 1 each PO BID #14 tablet 07/31/19 Unknown Rx [Bactrim DS TAB] Naproxen 500 mg PO Q12H PRN #12 tablet 09/29/20 Unknown Rx Sulfamethoxazole/Trimethoprim 1 each PO BID #14 tablet 09/29/20 Unknown Rx [Bactrim DS TAB] methOCARBAMOL [Robaxin TAB] 500 mg PO BID PRN #14 tab 09/29/20 Unknown Rx ED Physical Exam - General Limitations: No Limitations General appearance: alert, in no apparent distress - Head Head exam: Present: atraumatic, normocephalic, normal inspection - Eye Eye exam: Present: normal appearance, PERRL - ENT ENT exam: Present: normal exam, normal orophraynx, mucous membranes moist - Neck Neck exam: Present: normal inspection, full ROM. Absent: tenderness, meningismus - Respiratory Respiratory exam: Present: normal lung sounds bilaterally - Cardiovascular Cardiovascular Exam: Present: regular rate, normal rhythm, normal heart sounds - GI/Abdominal GI/Abdominal exam: Present: soft, normal bowel sounds. Absent: distended, tenderness, guarding, rebound, rigid, organomegaly, mass, bruit, pulsatile mass, hernia - Extremities Exam Extremities exam: Present: normal inspection, full ROM, normal capillary refill. Absent: tenderness - Back Exam Back exam: Present: normal inspection, full ROM. Absent: CVA tenderness (R), CVA tenderness (L) - Neurological Exam Neurological exam: Present: alert, oriented X3, CN II-XII intact, normal gait, reflexes normal. Absent: motor sensory deficit - Psychiatric Psychiatric exam: Present: normal mood - Skin Skin exam: Present: warm, intact, normal color ED Course Vital Signs 04/21/21 04/21/21 06:53 07:59 Temperature 99.3 F Pulse Rate 94 H Respiratory 17 17 Rate Blood Pressure 122/85 [Left] O2 Sat by Pulse 97 Oximetry ED Medical Decision Making - Lab Data Result diagrams: 04/21/21 07:10 04/21/21 07:10 - Radiology Data Radiology results: report reviewed - Medical Decision Making Patient is 40 years old female with history of kidney stone and pancreatitis. Patient presented to the ER complaining of epigastric abdominal pain that radiat ed down to her left lower quadrant area. Patient stated that pain started last night. Patient denied any fever or chills. No nausea or vomiting. Patient also denied any urinary symptoms. Patient remained stable in the ER with a stable vital sign. Labs reviewed and is unremarkable. CT abdomen and pelvis showed no acute abnormalities however did 3 mm nonobstructing renal stone. Patient received morphine and Zofran and stated that she is feeling much better. Patient advised to follow-up with her primary care physician in the next 2 to 3 days and to return to the ER if she develop any new symptoms. Critical care attestation.: If time is entered above; I have spent that time in minutes in the direct care of this critically ill patient, excluding procedure time. ED Disposition Clinical Impression: Acute abdominal pain Disposition: HOME / SELF CARE / HOMELESS Is pt being admited?: No Condition: Stable Instructions: Abdominal Pain (ED), Abdominal Pain, Adult, [id number], Gastritis, Adult Referrals: PRIMARY CARE, [Primary Care Provider] - 3-5 Days
[2021-04-21 07:56] LABS: BUN/Creatinine Ratio 13; Blood Urea Nitrogen 10 mg/dL (7-17); Calcium 8.3 mg/dL (8.4-10.2); Hemolysis Index 14
[2021-04-21 08:13] LABS: Alanine Aminotransferase 15 units/L (7-56); Albumin 4.1 g/dL (3.9-5)
[2021-04-21 08:20] LABS: Bilirubin,Direct < 0.2 mg/dL (0-0.2)
--- NOTE | 2021-04-21 09:57 | Cat Scan Report ---
CT ABDOMEN AND PELVIS WITHOUT CONTRAST INDICATION / CLINICAL INFORMATION: ABDOMINAL PAIN. n and v. . TECHNIQUE: Axial CT images were obtained through the abdomen and pelvis without IV contrast. Sagittal and alvarez l reformatted images. All CT scans at this location are performed using CT dose reduction for ALARA b y means of automated exposure control. COMPARISON: 07/31/2019 FINDINGS: LOWER CHEST: No significant abnormality. LIVER: No significant abnormality. GALLBLADDER: Surgically removed BILE DUCTS: No significant abnormality. PANCREAS: No significant abnormality. SPLEEN: No significant abnormality. ADRENALS: No significant abnormality. RIGHT KIDNEY and URETER: A 3 mm calyceal stone is identified near the superior pole. No focal renal l esion, ureteral stones or hydronephrosis. LEFT KIDNEY and URETER: No significant abnormality. STOMACH and SMALL BOWEL: No significant abnormality. COLON: No significant abnormality. APPENDIX: No significant abnormality. PERITONEUM: There is trace to small free fluid in the cul-de-sac. No free air. No fluid collection. LYMPH NODES: No significant adenopathy. AORTA and ARTERIES: No significant abnormality. IVC and VEINS: No significant abnormality. URINARY BLADDER: No significant abnormality. REPRODUCTIVE ORGANS: No significant abnormality. ADDITIONAL FINDINGS: None. SKELETAL SYSTEM: No significant abnormality. IMPRESSION: No acute inflammatory process is appreciated. Trace to small pelvic ascites. 3 mm right renal stone, nonobstructing. Signer Name: Waqar Rodriguez Jr, MD Signed: 04/21/2021 9:53 AM Workstation Name: [id number]
== END 2021-04-21 11:31 | disposition home or self-care (01) ==
LOC: ED 06:37
DX: R10.0 Acute abdomen (principal); J45.909 Unspecified asthma, uncomplicated; Z90.49 Acquired absence of other specified parts of digestive tract; F17.200 Nicotine dependence, unspecified, uncomplicated; Z88.8 Allergy status to other drugs, medicaments and biological substances
CPT/HCPCS: 36415; 74176; 80048; 80076; 81001; 82150; 83690; 84703; 85025; 96372; 99284; J2270; J2405

== ENCOUNTER 2021-05-30 09:06 | Emergency (ER) | payer MEDICAID ==
[2021-05-30 09:18] VITALS: BP 102/71
== END 2021-05-30 10:22 | disposition left against medical advice (07) ==
LOC: ED 09:06
DX: R51.9 Headache, unspecified (principal); Z53.21 Procedure and treatment not carried out due to patient leaving prior to being seen by health care provider

== ENCOUNTER 2021-05-31 08:09 | Emergency (ER) | payer MEDICAID ==
[2021-05-31 08:15] VITALS: BP 114/83
--- NOTE | 2021-05-31 09:49 | Emergency Department Report ---
ED General Adult HPI - General Chief complaint: Upper Respiratory Infection Stated complaint: CHILLS AND FEVER Time Seen by Provider: 05/31/21 08:45 Source: patient Mode of arrival: Ambulatory Limitations: No Limitations - History of Present Illness Initial comments: 40-year-old female patient presents with complaints of cough, congestion, body aches and chills, and headache starting yesterday. She states her cough is nonproductive and denies any hemoptysis, shortness of breath, loss of taste or smell, nausea/vomiting, or abdominal pain. Patient is not vaccinated against COVID-19 or the flu. Chronic smoker. She denies any past medical history. She reports OTC flu medications or not helping. - Related Data Previous Rx's Medication Instructions Recorded Last Taken Type Ciprofloxacin HCl [Cipro] 250 mg PO BID #6 tablet 10/16/14 Unknown Rx Albuterol Sulfate [Ventolin HFA] 2 puff IH Q4H PRN #1 hfa.aer.ad 09/21/15 Unknown Rx Clarithromycin [Biaxin] 500 mg PO BID #20 tab 09/21/15 Unknown Rx predniSONE [Deltasone] 50 mg PO QDAY #5 tab 09/21/15 Unknown Rx Ibuprofen [Motrin] 800 mg PO Q8HR PRN #30 tablet 02/04/17 Unknown Rx Penicillin Vk [Veetids TAB] 500 mg PO BID #40 tablet 02/04/17 Unknown Rx Albuterol Mdi (or & Nicu Only) 2 puff IH QID PRN #1 inhalation 05/23/17 Unknown Rx [ProAir HFA Inhaler] Ibuprofen [Motrin] 800 mg PO Q8HR PRN #30 tablet 05/23/17 Unknown Rx Inhaler, Assist Devices [Space 1 each MC PRN #1 spacer 05/23/17 Unknown Rx Chamber Plus] Ondansetron [Zofran Odt] 4 mg PO Q8HR #20 tab.rapdis 05/23/17 Unknown Rx predniSONE [Deltasone] 40 mg PO QDAY 5 Days tab 05/23/17 Unknown Rx traMADoL [Ultram] 50 mg PO Q6HR PRN #20 tablet 05/23/17 Unknown Rx Nystas/Diphen/Xyl Visc/Mylanta 15 ml MM Q4H PRN 5 Days ml 07/27/17 Unknown Rx [Magic Mouthwash] Cetirizine HCl [ZyrTEC] 10 mg PO QAM 5 Days #5 capsule 10/10/17 Unknown Rx predniSONE [Prednisone] 50 mg PO QAM 5 Days #5 tablet 10/10/17 Unknown Rx Albuterol Mdi (or & Nicu Only) 2 puff IH QID PRN #1 inhalation 11/25/17 Unknown Rx [ProAir HFA Inhaler] predniSONE [Deltasone] 3 tab PO DAILY 5 Days #15 tablet 11/25/17 Unknown Rx Albuterol Mdi (or & Nicu Only) 2 puff IH QID PRN #1 inhalation 01/26/18 Unknown Rx [ProAir HFA Inhaler] Prednisone [predniSONE 10 mg 10 mg PO .TAPER #1 tab.ds.pk 01/26/18 Unknown Rx (6-Day Pack, 21 Tabs)] Azithromycin [Zithromax Z-HUMBERTO] 1 dose PO DAILY 5 Days tab 02/01/18 Unknown Rx Ibuprofen [Motrin 800 MG tab] 800 mg PO Q8H PRN #30 tablet 02/01/18 Unknown Rx predniSONE [Deltasone] 40 mg PO QDAY 5 Days tablet 02/01/18 Unknown Rx ALBUTEROL NEB's [Proventil 0.083% 2.5 mg IH TID PRN #270 ml 05/05/18 Unknown Rx NEBS] Benzonatate [Tessalon Perles] 100 mg PO Q8HR #15 capsule 05/05/18 Unknown Rx Prednisone [predniSONE 10 mg 10 mg PO .TAPER #1 tab.ds.pk 05/05/18 Unknown Rx (6-Day Pack, 21 Tabs)] Clindamycin [Clindamycin CAP] 300 mg PO Q8H #21 cap 05/31/18 Unknown Rx Prednisone [predniSONE 10 mg 10 mg PO .TAPER #1 tab.ds.pk 05/31/18 Unknown Rx (6-Day Pack, 21 Tabs)] diphenhydrAMINE [Benadryl CAP] 25 mg PO Q6HR PRN #20 capsule 05/31/18 Unknown Rx Ibuprofen [Motrin] 600 mg PO Q8H PRN #20 tablet 06/12/18 Unknown Rx Amoxicillin/Potassium Clav 1 each PO BID #20 tablet 07/26/18 Unknown Rx [Augmentin 875-125 Tablet] Chlorhexidine Mouthwash [Peridex] 15 ml MM BID #1 bottle 02/19/19 Unknown Rx Ketorolac [Toradol] 10 mg PO Q6H PRN #15 tablet 07/26/18 Unknown Rx Lidocaine Viscous 2% 5 ml MM Q3H PRN #120 udc 07/26/18 Unknown Rx Naloxone HCl [Narcan Nasal Patrick] 4 mg NS Q1HR PRN #1 spray 02/04/19 Unknown Rx Naproxen 500 mg PO BID PRN #30 tablet 05/14/19 Unknown Rx Ketorolac [Toradol] 10 mg PO Q6H PRN #10 tablet 07/31/19 Unknown Rx Ondansetron [Zofran Odt] 4 mg PO Q8HR PRN #20 tab.rapdis 07/31/19 Unknown Rx Sulfamethoxazole/Trimethoprim 1 each PO BID #14 tablet 07/31/19 Unknown Rx [Bactrim DS TAB] Naproxen 500 mg PO Q12H PRN #12 tablet 09/29/20 Unknown Rx Sulfamethoxazole/Trimethoprim 1 each PO BID #14 tablet 09/29/20 Unknown Rx [Bactrim DS TAB] methOCARBAMOL [Robaxin TAB] 500 mg PO BID PRN #14 tab 09/29/20 Unknown Rx Esomeprazole Magnesium [NexIUM] 40 mg PO QDAY #30 capsule. 04/21/21 Unknown Rx Ondansetron [Zofran Odt] 4 mg PO Q8HR PRN #14 tab.rapdis 04/21/21 Unknown Rx traMADoL [Ultram] 50 mg PO Q6HR PRN #14 tablet 04/21/21 Unknown Rx Albuterol Mdi (or & Nicu Only) 2 puff IH QID PRN #8.5 gram 05/31/21 Unknown Rx [ProAir HFA Inhaler] Azithromycin [Zithromax Z-HUMBERTO] 0 mg PO DAILY #6 tab 05/31/21 Unknown Rx Prednisone [predniSONE 10 mg 10 mg PO .TAPER #1 tab.ds.pk 05/31/21 Unknown Rx (6-Day Pack, 21 Tabs)] guaiFENesin [Guaifenesin] 1,200 mg PO BID #14 tab.er.12h 05/31/21 Unknown Rx Allergies Allergy/AdvReac Type Severity Reaction Status Date / Time cyclobenzaprine HCl Allergy Itching Verified 05/31/21 08:15 [From Flexeril] trazodone Allergy Itching Verified 05/31/21 08:15 ED Review of Systems ROS: Stated complaint: CHILLS AND FEVER Other details as noted in HPI Constitutional: chills, malaise, weakness. denies: diaphoresis, fever ENT: denies: throat pain Respiratory: cough. denies: shortness of breath Cardiovascular: chest pain (Pain with cough) Gastrointestinal: as per HPI Musculoskeletal: denies: back pain ED Past Medical Hx - Past Medical History Hx Congestive Heart Failure: No Hx Diabetes: No Hx Asthma: Yes Hx COPD: No Additional medical history: History of ovarian cysts. History of pancreatitis - Surgical History Hx Cholecystectomy: Yes Additional Surgical History: tubal ligation. Right knee arthroscopy for mensical tear 12/01/13 - Social History Smoking Status: Current Every Day Smoker Substance Use Type: None - Medications Home Medications: Home Medications Medication Instructions Recorded Confirmed Last Taken Type Ciprofloxacin HCl [Cipro] 250 mg PO BID #6 tablet 10/16/14 Unknown Rx Albuterol Sulfate [Ventolin HFA] 2 puff IH Q4H PRN #1 hfa.aer.ad 09/21/15 Unknown Rx Clarithromycin [Biaxin] 500 mg PO BID #20 tab 09/21/15 Unknown Rx predniSONE [Deltasone] 50 mg PO QDAY #5 tab 09/21/15 Unknown Rx Ibuprofen [Motrin] 800 mg PO Q8HR PRN #30 tablet 02/04/17 Unknown Rx Penicillin Vk [Veetids TAB] 500 mg PO BID #40 tablet 02/04/17 Unknown Rx Albuterol Mdi (or & Nicu Only) 2 puff IH QID PRN #1 inhalation 05/23/17 Unknown Rx [ProAir HFA Inhaler] Ibuprofen [Motrin] 800 mg PO Q8HR PRN #30 tablet 05/23/17 Unknown Rx Inhaler, Assist Devices [Space 1 each MC PRN #1 spacer 05/23/17 Unknown Rx Chamber Plus] Ondansetron [Zofran Odt] 4 mg PO Q8HR #20 tab.rapdis 05/23/17 Unknown Rx predniSONE [Deltasone] 40 mg PO QDAY 5 Days tab 05/23/17 Unknown Rx traMADoL [Ultram] 50 mg PO Q6HR PRN #20 tablet 05/23/17 Unknown Rx Nystas/Diphen/Xyl Visc/Mylanta 15 ml MM Q4H PRN 5 Days ml 07/27/17 Unknown Rx [Magic Mouthwash] Cetirizine HCl [ZyrTEC] 10 mg PO QAM 5 Days #5 capsule 10/10/17 Unknown Rx predniSONE [Prednisone] 50 mg PO QAM 5 Days #5 tablet 10/10/17 Unknown Rx Albuterol Mdi (or & Nicu Only) 2 puff IH QID PRN #1 inhalation 11/25/17 Unknown Rx [ProAir HFA Inhaler] predniSONE [Deltasone] 3 tab PO DAILY 5 Days #15 tablet 11/25/17 Unknown Rx Albuterol Mdi (or & Nicu Only) 2 puff IH QID PRN #1 inhalation 01/26/18 Unknown Rx [ProAir HFA Inhaler] Prednisone [predniSONE 10 mg 10 mg PO .TAPER #1 tab.ds.pk 01/26/18 Unknown Rx (6-Day Pack, 21 Tabs)] Azithromycin [Zithromax Z-HUMBERTO] 1 dose PO DAILY 5 Days tab 02/01/18 Unknown Rx Ibuprofen [Motrin 800 MG tab] 800 mg PO Q8H PRN #30 tablet 02/01/18 Unknown Rx predniSONE [Deltasone] 40 mg PO QDAY 5 Days tablet 02/01/18 Unknown Rx ALBUTEROL NEB's [Proventil 0.083% 2.5 mg IH TID PRN #270 ml 05/05/18 Unknown Rx NEBS] Benzonatate [Tessalon Perles] 100 mg PO Q8HR #15 capsule 05/05/18 Unknown Rx Prednisone [predniSONE 10 mg 10 mg PO .TAPER #1 tab.ds.pk 05/05/18 Unknown Rx (6-Day Pack, 21 Tabs)] Clindamycin [Clindamycin CAP] 300 mg PO Q8H #21 cap 05/31/18 Unknown Rx Prednisone [predniSONE 10 mg 10 mg PO .TAPER #1 tab.ds.pk 05/31/18 Unknown Rx (6-Day Pack, 21 Tabs)] diphenhydrAMINE [Benadryl CAP] 25 mg PO Q6HR PRN #20 capsule 05/31/18 Unknown Rx Ibuprofen [Motrin] 600 mg PO Q8H PRN #20 tablet 06/12/18 Unknown Rx Amoxicillin/Potassium Clav 1 each PO BID #20 tablet 07/26/18 Unknown Rx [Augmentin 875-125 Tablet] Chlorhexidine Mouthwash [Peridex] 15 ml MM BID #1 bottle 07/26/18 Unknown Rx Ketorolac [Toradol] 10 mg PO Q6H PRN #15 tablet 07/26/18 Unknown Rx Lidocaine Viscous 2% 5 ml MM Q3H PRN #120 udc 07/26/18 Unknown Rx Naloxone HCl [Narcan Nasal Patrick] 4 mg NS Q1HR PRN #1 spray 02/04/19 Unknown Rx Naproxen 500 mg PO BID PRN #30 tablet 05/14/19 Unknown Rx Ketorolac [Toradol] 10 mg PO Q6H PRN #10 tablet 07/31/19 Unknown Rx Ondansetron [Zofran Odt] 4 mg PO Q8HR PRN #20 tab.rapdis 07/31/19 Unknown Rx Sulfamethoxazole/Trimethoprim 1 each PO BID #14 tablet 07/31/19 Unknown Rx [Bactrim DS TAB] Naproxen 500 mg PO Q12H PRN #12 tablet 09/29/20 Unknown Rx Sulfamethoxazole/Trimethoprim 1 each PO BID #14 tablet 09/29/20 Unknown Rx [Bactrim DS TAB] methOCARBAMOL [Robaxin TAB] 500 mg PO BID PRN #14 tab 09/29/20 Unknown Rx Esomeprazole Magnesium [NexIUM] 40 mg PO QDAY #30 capsule.dr 04/21/21 Unknown Rx Ondansetron [Zofran Odt] 4 mg PO Q8HR PRN #14 tab.rapdis 04/21/21 Unknown Rx traMADoL [Ultram] 50 mg PO Q6HR PRN #14 tablet 04/21/21 Unknown Rx Albuterol Mdi (or & Nicu Only) 2 puff IH QID PRN #8.5 gram 05/31/21 Unknown Rx [ProAir HFA Inhaler] Azithromycin [Zithromax Z-HUMBERTO] 0 mg PO DAILY #6 tab 05/31/21 Unknown Rx Prednisone [predniSONE 10 mg 10 mg PO .TAPER #1 tab.ds.pk 05/31/21 Unknown Rx (6-Day Pack, 21 Tabs)] guaiFENesin [Guaifenesin] 1,200 mg PO BID #14 tab.er.12h 05/31/21 Unknown Rx ED Physical Exam - General Limitations: No Limitations General appearance: alert, in no apparent distress - Head Head exam: Present: atraumatic, normocephalic - Eye Eye exam: Present: normal appearance. Absent: scleral icterus - ENT ENT exam: Present: normal exam - Neck Neck exam: Present: normal inspection - Respiratory Respiratory exam: Present: wheezes (Mild diffuse), rales (Mild, scattered), rhonchi (Diffuse) - Cardiovascular Cardiovascular Exam: Present: regular rate, normal rhythm. Absent: systolic murmur, diastolic murmur, rubs, gallop - Neurological Exam Neurological exam: Present: alert, oriented X3 - Psychiatric Psychiatric exam: Present: normal affect, normal mood - Skin Skin exam: Present: warm, dry, intact, normal color. Absent: rash ED Course Vital Signs 05/31/21 08:14 Temperature 98.7 F Pulse Rate 97 H Respiratory 20 Rate Blood Pressure 114/83 O2 Sat by Pulse 95 Oximetry ED Medical Decision Making - Radiology Data Radiology results: report reviewed CHEST 2 VIEWS INDICATION: cough, rhonchi, wheezing. COMPARISON: 02/04/2019 FINDINGS: SUPPORT DEVICES: None. HEART: Within normal limits. LUNGS/PLEURA: No acute air space or interstitial disease. No pneumothorax. ADDITIONAL FINDINGS: None. IMPRESSION: 1. No acute findings. - Medical Decision Making 40-year-old female patient presents with complaints of cough, congestion, body aches and chills, and headache starting yesterday. She states her cough is nonproductive and denies any hemoptysis, shortness of breath, loss of taste or smell, nausea/vomiting, or abdominal pain. Patient is not vaccinated against COVID-19 or the flu. Chronic smoker. She denies any past medical history. She reports OTC flu medications or not helping. X-rays negative for any acute abnormalities. Lung exam and history are consistent with acute bronchitis. Given history of smoking, will cover patient for bacterial infection with Z-Humberto. She is otherwise well-appearing, her vitals are normal, she is stable for discharge home. I also recommend patient gets COVID-19 testing within the next 24 to 48 hours and self quarantine's until her results are back. Strict return precautions were discussed in detail with patient who verbalized understanding. Patient to follow-up with her PCP in 3 to 5 days Critical care attestation.: If time is entered above; I have spent that time in minutes in the direct care of this critically ill patient, excluding procedure time. ED Disposition Clinical Impression: Acute bacterial bronchitis Disposition: 01 HOME / SELF CARE / HOMELESS Is pt being admited?: No Condition: Stable Instructions: Acute Bronchitis, Adult, Acute Bronchitis (ED) Prescriptions: guaiFENesin [Guaifenesin] 1,200 mg PO BID #14 tab.er.12h Prednisone [predniSONE 10 mg (6-Day Pack, 21 Tabs)] 10 mg PO .TAPER #1 tab.ds.pk Albuterol Mdi (or & Nicu Only) [ProAir HFA Inhaler] 2 puff IH QID PRN #8.5 gram PRN Reason: wheezing/chest tightness Azithromycin [Zithromax Z-HUMBERTO] 0 mg PO DAILY #6 tab Referrals: PRIMARY CARE, [Primary Care Provider] - 3-5 Days Forms: Work/School Release Form(ED)
--- NOTE | 2021-05-31 10:26 | XRay Report ---
CHEST 2 VIEWS INDICATION: cough, rhonchi, wheezing. COMPARISON: 02/04/2019 FINDINGS: SUPPORT DEVICES: None. HEART: Within normal limits. LUNGS/PLEURA: No acute air space or interstitial disease. No pneumothorax. ADDITIONAL FINDINGS: None. IMPRESSION: 1. No acute findings. Signer Name: Mundo Crain MD Signed: 05/31/2021 10:22 AM Workstation Name: [id number]
[2021-05-31] MEDS ORDERED: dexAMETHasone 4 MG/ML VIAL IM STA (10:55)
[2021-05-31] MEDS ORDERED: KETOROLAC 60 MG/2 ML INJ IM ONE (10:55)
== END 2021-05-31 11:38 | disposition home or self-care (01) ==
LOC: ED 08:09
DX: J20.9 Acute bronchitis, unspecified (principal); F17.200 Nicotine dependence, unspecified, uncomplicated; Z90.49 Acquired absence of other specified parts of digestive tract; J45.909 Unspecified asthma, uncomplicated; Z88.8 Allergy status to other drugs, medicaments and biological substances
CPT/HCPCS: 71046; 96372; 99283; J1100; J1885

== ENCOUNTER 2021-10-25 17:55 | Emergency (ER) | payer MEDICAID | END 2021-10-26 13:59 | disposition left against medical advice (07) | LOC: ED 17:55 | DX: J45.909 Unspecified asthma, uncomplicated (principal); Z53.21 Procedure and treatment not carried out due to patient leaving prior to being seen by health care provider ==

== ENCOUNTER 2021-12-04 06:34 | Emergency (ER) | payer MEDICAID ==
[2021-12-04 06:41] VITALS: BP 136/85
[2021-12-04 07:52] LABS: Basophils % (Auto) 0.9 % (0.0-1.8); Eosinophils % (Auto) 0.9 % (0.0-4.3); Hematocrit 43.2 % (30.3-42.9); Hemoglobin 14.6 gm/dl (10.1-14.3); Lymphocytes # (Auto) 0.5 K/mm3 (1.2-5.4); Lymphocytes % (Auto) 10.5 % (13.4-35.0); Mean Corpuscular HGB Conc 34 % (30-34); Mean Corpuscular Volume 92 fl (79-97); Monocytes # (Auto) 0.5 K/mm3 (0.0-0.8); Monocytes % (Auto) 10.4 % (0.0-7.3); Platelet Count 217 K/mm3 (140-440); Red Blood Count 4.67 M/mm3 (3.65-5.03); Red Cell Distribution Width 13.3 % (13.2-15.2)
[2021-12-04 08:20] LABS: Alanine Aminotransferase 17 units/L (7-56); Albumin 3.9 g/dL (3.9-5); BUN/Creatinine Ratio 10; Blood Urea Nitrogen 8 mg/dL (7-17); Calcium 8.4 mg/dL (8.4-10.2); Hemolysis Index 15
[2021-12-04 09:18] LABS: Bilirubin,Urine NEG (Negative); Blood,Urine MOD (Negative); Color,Urine Yellow (Yellow); Protein,Urine <15 mg/dL mg/dL (Negative); Urobilinogen,Urine < 2.0 mg/dL (<2.0)
[2021-12-04 09:27] LABS: Mucus,Urine FEW /HPF
[2021-12-04] MEDS ORDERED: cefTRIAXone/NS 1 GM/50 ML 1 GM/50 ML BAG IV ONE (11:31)
[2021-12-04] MEDS ORDERED: SODIUM CHLORIDE 0.9% 1000 ML 1,000 ML IV ONE (11:31)
[2021-12-04] MEDS ORDERED: KETOROLAC 30 MG/1 ML INJ IV ONE (11:31)
[2021-12-04] MEDS ORDERED: ONDANSETRON 4 MG/2 ML INJ IV ONE (11:31)
[2021-12-04] MEDS ORDERED: MORPHINE 4 MG/1 ML INJ IV ONE (11:31)
--- NOTE | 2021-12-04 11:31 | Emergency Department Report ---
ED Abdominal Pain HPI - General Chief Complaint: Abdominal Pain Stated Complaint: RT FLANK PAIN PUI?: No Time Seen by Provider: 12/04/21 11:30 Source: patient Mode of arrival: Ambulatory Limitations: No Limitations - History of Present Illness Initial Comments: Ms. Kaplan is a 41-year-old female that comes to the ER complaining of right flank pain since yesterday. She endorses polyuria and dysuria. She denies fever or chills. She denies vagina discharge. Patient currently on her menses she denies nausea vomiting or diarrhea. She has not seen her PCP. She is not taking anything prior to arrival in the ER. -: Gradual, days(s) Location: R flank Migration to: no migration Quality: aching Consistency: constant Improves With: nothing Worsens With: nothing Associated Symptoms: denies other symptoms, dysuria. denies: nausea, vomiting, fever, chills, constipation, hematemesis, hematochezia, melena, hematuria, anorexia, syncope - Related Data LMP (females 10-50): this week Previous Rx's Medication Instructions Recorded Last Taken Type Esomeprazole Magnesium [NexIUM] 40 mg PO QDAY #30 capsule. 04/21/21 Unknown Rx ALBUTEROL NEB's [Proventil 0.083% 2.5 mg IH TID PRN #1 box 12/04/21 Unknown Rx NEBS] Albuterol Mdi (or & Nicu Only) 2 puff IH QID PRN #1 inhalation 12/04/21 Unknown Rx [ProAir HFA Inhaler] Albuterol Mdi (or & Nicu Only) 2 puff IH QID PRN #1 inhalation 12/04/21 Unknown Rx [ProAir HFA Inhaler] Sulfamethoxazole/Trimethoprim 1 each PO BID #10 tablet 12/04/21 Unknown Rx [Bactrim DS TAB] predniSONE [Deltasone] 20 mg PO DAILY #5 tablet 12/04/21 Unknown Rx Allergies Allergy/AdvReac Type Severity Reaction Status Date / Time cyclobenzaprine HCl Allergy Itching Verified 05/31/21 08:15 [From Flexeril] trazodone Allergy Itching Verified 05/31/21 08:15 ED Review of Systems ROS: Stated complaint: RT FLANK PAIN Other details as noted in HPI Comment: All other systems reviewed and negative ED Past Medical Hx - Past Medical History Previous Medical History?: Yes Hx Congestive Heart Failure: No Hx Diabetes: No Hx Asthma: Yes Hx COPD: No Additional medical history: History of ovarian cysts. History of pancreatitis - Surgical History Past Surgical History?: Yes Hx Cholecystectomy: Yes Additional Surgical History: tubal ligation. Right knee arthroscopy for mensical tear 12/01/13 - Family History Family history: no significant - Social History Smoking Status: Current Every Day Smoker Substance Use Type: None - Medications Home Medications: Home Medications Medication Instructions Recorded Confirmed Last Taken Type Esomeprazole Magnesium [NexIUM] 40 mg PO QDAY #30 capsule. 04/21/21 Unknown Rx ALBUTEROL NEB's [Proventil 0.083% 2.5 mg IH TID PRN #1 box 12/04/21 Unknown Rx NEBS] Albuterol Mdi (or & Nicu Only) 2 puff IH QID PRN #1 inhalation 12/04/21 Unknown Rx [ProAir HFA Inhaler] Albuterol Mdi (or & Nicu Only) 2 puff IH QID PRN #1 inhalation 12/04/21 Unknown Rx [ProAir HFA Inhaler] Sulfamethoxazole/Trimethoprim 1 each PO BID #10 tablet 12/04/21 Unknown Rx [Bactrim DS TAB] predniSONE [Deltasone] 20 mg PO DAILY #5 tablet 12/04/21 Unknown Rx ED Physical Exam - General Limitations: No Limitations General appearance: alert, in no apparent distress - Head Head exam: Present: atraumatic, normocephalic - Eye Eye exam: Present: normal appearance - ENT ENT exam: Present: mucous membranes moist - Neck Neck exam: Present: normal inspection - Respiratory Respiratory exam: Present: normal lung sounds bilaterally. Absent: respiratory distress - Cardiovascular Cardiovascular Exam: Present: regular rate, normal rhythm. Absent: systolic murmur, diastolic murmur, rubs, gallop - GI/Abdominal GI/Abdominal exam: Present: soft, normal bowel sounds - Extremities Exam Extremities exam: Present: normal inspection - Back Exam Back exam: Present: normal inspection - Neurological Exam Neurological exam: Present: alert, oriented X3 - Psychiatric Psychiatric exam: Present: normal affect, normal mood - Skin Skin exam: Present: warm, dry, intact, normal color. Absent: rash ED Course Vital Signs 12/04/21 12/04/21 12/04/21 06:38 14:41 16:38 Temperature 100.2 F H 99 F Pulse Rate 105 H 100 H Respiratory 18 20 Rate Blood Pressure 136/85 O2 Sat by Pulse 95 97 97 Oximetry ED Medical Decision Making - Lab Data Result diagrams: 12/04/21 07:30 12/04/21 07:30 - Radiology Data Radiology results: report reviewed, image reviewed No acute process - Medical Decision Making Labs 12/04/21 12/04/21 12/04/21 07:30 07:30 07:30 WBC 4.6 RBC 4.67 Hgb 14.6 H Hct 43.2 H MCV 92 MCH 31 MCHC 34 RDW 13.3 Plt Count 217 Lymph % (Auto) 10.5 L [place] % (Auto) 10.4 H Eos % (Auto) 0.9 Baso % (Auto) 0.9 Lymph # (Auto) 0.5 L [place] # (Auto) 0.5 Eos # (Auto) 0.0 Baso # (Auto) 0.0 Seg Neutrophils % 77.3 H Seg Neutrophils # 3.6 Sodium 140 Potassium 4.2 Chloride 107.4 H Carbon Dioxide 21 L Anion Gap 16 BUN 8 Creatinine 0.8 Estimated GFR > 60 BUN/Creatinine Ratio 10 Glucose 101 H Calcium 8.4 Total Bilirubin < 0.20 AST 20 ALT 17 Alkaline Phosphatase 45 Total Protein 6.4 Albumin 3.9 Albumin/Globulin Ratio 1.6 HCG, Qual Neg Urine Color Urine Turbidity Urine pH Ur Specific [place] Urine Protein Urine Glucose (UA) Urine Ketones Urine Blood Urine Nitrite Urine Bilirubin Urine Urobilinogen Ur Leukocyte Esterase Urine WBC (Auto) Urine RBC (Auto) U Epithel Cells (Auto) Urine Mucus 12/04/21 Unknown WBC RBC Hgb Hct MCV MCH MCHC RDW Plt Count Lymph % (Auto) [place] % (Auto) Eos % (Auto) Baso % (Auto) Lymph # (Auto) [place] # (Auto) Eos # (Auto) Baso # (Auto) Seg Neutrophils % Seg Neutrophils # Sodium Potassium Chloride Carbon Dioxide Anion Gap BUN Creatinine Estimated GFR BUN/Creatinine Ratio Glucose Calcium Total Bilirubin AST ALT Alkaline Phosphatase Total Protein Albumin Albumin/Globulin Ratio HCG, Qual Urine Color Yellow Urine Turbidity Clear Urine pH 5.0 Ur Specific [place] 1.020 Urine Protein <15 mg/dl Urine Glucose (UA) Neg Urine Ketones Neg Urine Blood Mod Urine Nitrite Neg Urine Bilirubin Neg Urine Urobilinogen < 2.0 Ur Leukocyte Esterase Neg Urine WBC (Auto) 1.0 Urine RBC (Auto) 16.0 U Epithel Cells (Auto) 8.0 Urine Mucus Few Vital Signs 12/04/21 06:38 Temperature 100.2 F H Pulse Rate 105 H Respiratory 18 Rate Blood Pressure 136/85 O2 Sat by Pulse 95 Oximetry Labs noted. Vital signs remain stable. Vital Signs 12/04/21 12/04/21 12/04/21 06:38 14:41 16:38 Temperature 100.2 F H 99 F Pulse Rate 105 H 100 H Respiratory 18 20 Rate Blood Pressure 136/85 O2 Sat by Pulse 95 97 97 Oximetry On arrival patient was medicated with normal saline, Dilaudid, Toradol, Solu- Medrol and a breathing treatment. Although she was not complaining of wheezing she was wheezing on arrival to the ER. Her primary complaint is this flank pain. Her labs were normal. Her uri nalysis noted. She has hematuria but is on her menses. Her CT scan was noted. Patient continued to complain of pain. She was given a [place]. Given patient complaints have treated her for UTI. She is going home on Bactrim. On follow-up exam she is taking p.o. without difficulty. She is ambulating to the nurses station asking for something to eat.. Patient being discharged home with discharge plan of care including diet, activity, medications and follow-up. Patient verbalizes understanding of plan of care. - Differential Diagnosis Rule out UTI, kidney stone. Asthma with or without exacerbation Critical care attestation.: If time is entered above; I have spent that time in minutes in the direct care of this critically ill patient, excluding procedure time. ED Disposition Clinical Impression: Flank pain, Asthma with acute exacerbation Hematuria Qualifiers: Hematuria type: unspecified type Qualified Code(s): R31.9 - Hematuria, unspecified Disposition: 01 HOME / SELF CARE / HOMELESS Is pt being admited?: No Does the pt Need Aspirin: No Condition: Stable Instructions: Hematuria, Adult, Chronic Obstructive Pulmonary Disease (ED), Abdominal Pain (ED) Additional Instructions: STAY WELL HYDRATED OVER THE COUNTER MOTRIN OR TYLENOL FOR PAIN MED ORDERED TODAY UNTIL GONE FOLLOW UP WITH PCP AND OR URO TO BE SURE THIS GOES AWAY Prescriptions: Sulfamethoxazole/Trimethoprim [Bactrim DS TAB] 1 each PO BID #10 tablet predniSONE [Deltasone] 20 mg PO DAILY #5 tablet Albuterol Mdi (or & Nicu Only) [ProAir HFA Inhaler] 2 puff IH QID PRN #1 inhalation PRN Reason: Shortness Of Breath Albuterol Mdi (or & Nicu Only) [ProAir HFA Inhaler] 2 puff IH QID PRN #1 inhalation PRN Reason: Shortness Of Breath ALBUTEROL NEB's [Proventil 0.083% NEBS] 2.5 mg IH TID PRN #1 box PRN Reason: Wheezing Referrals: PRIMARY CARE, [Primary Care Provider] - 3-5 Days ERINN PLATT MD [Staff Physician] - 3-5 Days TOD GALVAN MD [Staff Physician] - 3-5 Days Forms: Work/School Release Form(ED) Time of Disposition: 16:24
[2021-12-04] MEDS ORDERED: ALBUTEROL 2.5 MG/3 ML NEBU IH ONE ×2 (11:44→15:03)
--- NOTE | 2021-12-04 14:44 | Cat Scan Report ---
CT ABDOMEN AND PELVIS WITHOUT CONTRAST HISTORY: Abdominal Pain COMPARISON: 04/21/2021 TECHNIQUE: Axial CT images were obtained through the abdomen and pelvis without IV contrast. Sagittal and coronal reformatted images. All CT scans at this location are performed using CT dose reduction for ALARA by means of automated exposure control. FINDINGS: CT ABDOMEN: Lung Bases: Clear. Liver: No significant abnormality. Biliary: Stable cholecystectomy changes. No biliary dilatation. Spleen: No significant abnormality. Unenlarged. Pancreas: No significant abnormality. Adrenals: No significant abnormality. Kidneys: No significant abnormality. Previously described right renal stone is no longer seen. Lymphatics: No lymphadenopathy. Vasculature: No significant abnormality. Bowel/Peritoneum: No significant abnormality. No free air. No free fluid. Normal appendix. CT PELVIS: : The bladder, uterus and adnexa are unremarkable. Osseous Structures: No significant abnormality. Additional Findings: None IMPRESSION: No significant abnormality. Signer Name: Waqar Rodriguez Jr, MD Signed: 12/04/2021 2:40 PM Workstation Name: [id number]
[2021-12-04] MEDS ORDERED: IPRATROPIUM 0.02% NEBU 2.5 ML IH ONE (15:03)
[2021-12-04] MEDS ORDERED: methylPREDNISolone Sod Succinate 125 MG/2 ML INJ IV ONE (15:03)
[2021-12-04] MEDS ORDERED: HYDROcodone/ACETAMINOPHEN 5-325 MG TAB PO ONE (16:18)
== END 2021-12-04 16:39 | disposition home or self-care (01) ==
LOC: ED 06:34
DX: R10.9 Unspecified abdominal pain (principal); J45.901 Unspecified asthma with (acute) exacerbation; R31.9 Hematuria, unspecified; Z88.8 Allergy status to other drugs, medicaments and biological substances
CPT/HCPCS: 36415; 74176; 80053; 81001; 84703; 85025; 94640; 96365; 96375; 99284; J0696; J1885; J2270; J2405; J7030

== ENCOUNTER 2022-01-15 19:54 | Emergency (ER) | payer MEDICAID ==
[2022-01-15 20:16] VITALS: BP 131/81
--- NOTE | 2022-01-15 21:43 | XRay Report ---
LEFT KNEE 3 VIEW(S) INDICATION / CLINICAL INFORMATION: PAIN COMPARISON: None available. FINDINGS: BONES / JOINT(S): No acute fracture or subluxation. No significant arthritis. SOFT TISSUES: No significant abnormality. ADDITIONAL FINDINGS: None. IMPRESSION: 1. No acute findings. Signer Name: Vladimir Remy MD Signed: 01/15/2022 9:39 PM Workstation Name: [id number]
== END 2022-01-16 03:02 | disposition left against medical advice (07) ==
LOC: ED 19:54
DX: M25.562 Pain in left knee (principal); Z53.21 Procedure and treatment not carried out due to patient leaving prior to being seen by health care provider

== ENCOUNTER 2022-01-16 09:41 | Emergency (ER) | payer MEDICAID ==
[2022-01-16] MEDS ORDERED: predniSONE 20 MG TAB PO ONE (15:31)
[2022-01-16] MEDS ORDERED: KETOROLAC 10 MG TAB PO ONE (15:31)
--- NOTE | 2022-01-16 16:34 | Emergency Department Report ---
ED Extremity Problem HPI - General Chief complaint: Extremity Problem,Nontraumatic Stated complaint: LT KNEE PAIN/FLUID Time Seen by Provider: 01/16/22 15:12 Source: patient Mode of arrival: Ambulatory Limitations: No Limitations - History of Present Illness Initial comments: 41-year-old white female with no past medical history presents to the emergency department for evaluation of 3-day history of left knee pain and swelling. She states that she stands on her feet a lot at work and when she gets home in the evening time she has pain and swelling to her left knee, so she wraps it and props it up and when she gets up in the morning pain is and swelling have resolved but they come back every day. She denies injury or trauma. She denies chest pain, shortness of breath, hemoptysis. She states that pain at its worst is 8 out of 10 and is described as a dull ache. MD Complaint: extremity pain, extremity swelling -: Gradual, days(s) (3) Location: left, knee History of Same: Yes -: No myalgia, No arthralgia, No fever, No associated dyspnea, No associated chest pain Severity scale (0 -10): 8 Quality: aching Consistency: intermittent Worsens with: weight bearing, other (Standing for long period) Associated Symptoms: denies: chest pain, shortness of breath, fever, myalgias, arthralgias, rash - Related Data Previous Rx's Medication Instructions Recorded Last Taken Type Esomeprazole Magnesium [NexIUM] 40 mg PO QDAY #30 capsule. 04/21/21 Unknown Rx ALBUTEROL NEB's [Proventil 0.083% 2.5 mg IH TID PRN #1 box 12/04/21 Unknown Rx NEBS] Albuterol Mdi (or & Nicu Only) 2 puff IH QID PRN #1 inhalation 12/04/21 Unknown Rx [ProAir HFA Inhaler] Albuterol Mdi (or & Nicu Only) 2 puff IH QID PRN #1 inhalation 12/04/21 Unknown Rx [ProAir HFA Inhaler] Sulfamethoxazole/Trimethoprim 1 each PO BID #10 tablet 12/04/21 Unknown Rx [Bactrim DS TAB] predniSONE [Deltasone] 20 mg PO DAILY #5 tablet 12/04/21 Unknown Rx Naproxen [Naprosyn] 500 mg PO BID #14 tab 01/16/22 Unknown Rx Allergies Allergy/AdvReac Type Severity Reaction Status Date / Time cyclobenzaprine HCl Allergy Itching Verified 01/16/22 16:22 [From Flexeril] trazodone Allergy Itching Verified 01/16/22 16:22 ED Review of Systems ROS: Stated complaint: LT KNEE PAIN/FLUID Other details as noted in HPI Comment: All other systems reviewed and negative Constitutional: denies: chills, fever Respiratory: denies: shortness of breath Cardiovascular: denies: chest pain, palpitations Gastrointestinal: denies: abdominal pain, nausea, vomiting Neurological: denies: headache, weakness ED Past Medical Hx - Past Medical History Hx Congestive Heart Failure: No Hx Diabetes: No Hx Asthma: Yes Hx COPD: No Additional medical history: History of ovarian cysts. History of pancreatitis - Surgical History Hx Cholecystectomy: Yes Additional Surgical History: tubal ligation. Right knee arthroscopy for mensical tear 12/01/13 - Social History Smoking Status: Current Every Day Smoker Substance Use Type: None - Medications Home Medications: Home Medications Medication Instructions Recorded Confirmed Last Taken Type Esomeprazole Magnesium [NexIUM] 40 mg PO QDAY #30 capsule. 04/21/21 Unknown Rx ALBUTEROL NEB's [Proventil 0.083% 2.5 mg IH TID PRN #1 box 12/04/21 Unknown Rx NEBS] Albuterol Mdi (or & Nicu Only) 2 puff IH QID PRN #1 inhalation 12/04/21 Unknown Rx [ProAir HFA Inhaler] Albuterol Mdi (or & Nicu Only) 2 puff IH QID PRN #1 inhalation 12/04/21 Unknown Rx [ProAir HFA Inhaler] Sulfamethoxazole/Trimethoprim 1 each PO BID #10 tablet 12/04/21 Unknown Rx [Bactrim DS TAB] predniSONE [Deltasone] 20 mg PO DAILY #5 tablet 12/04/21 Unknown Rx Naproxen [Naprosyn] 500 mg PO BID #14 tab 01/16/22 Unknown Rx ED Physical Exam - General Limitations: No Limitations General appearance: alert, in no apparent distress - Head Head exam: Present: atraumatic, normocephalic - Eye Eye exam: Present: normal appearance. Absent: conjunctival injection - Neck Neck exam: Present: normal inspection, full ROM. Absent: tenderness, lymphad enopathy - Respiratory Respiratory exam: Absent: respiratory distress - Cardiovascular Cardiovascular Exam: Present: regular rate - GI/Abdominal GI/Abdominal exam: Absent: distended - Expanded Lower Extremity Exam Left Knee exam: Present: normal inspection, full ROM, tenderness (To the top of knee only). Absent: swelling, abrasion, laceration, ecchymosis, deformity, crepidus, dislocation, erythema, pain w/ pronation/supination Lower Leg exam: Present: normal inspection Ankle exam: Present: normal inspection Neuro vascular tendon exam: Present: no vascular compromise. Absent: pulse deficit, abnormal cap refill, motor deficit, sensory deficit, extremity cold to touch, pallor Gait: Positive: observed and normal - Back Exam Back exam: Present: normal inspection - Neurological Exam Neurological exam: Present: alert, oriented X3 - Psychiatric Psychiatric exam: Present: normal affect, normal mood - Skin Skin exam: Present: warm, dry, intact, normal color ED Course Vital Signs 01/16/22 01/16/22 11:12 16:53 Temperature 98.2 F Pulse Rate 70 90 Respiratory 18 Rate Blood Pressure 114/81 121/78 [Right] O2 Sat by Pulse 97 97 Oximetry ED Medical Decision Making - Radiology Data Radiology results: report reviewed, image reviewed - Medical Decision Making 41-year-old white female with no past medical history presents to the emergency department for evaluation of 3-day history of left knee pain and swelling. She states that she stands on her feet a lot at work and when she gets home in the evening time she has pain and swelling to her left knee, so she wraps it and props it up and when she gets up in the morning pain is and swelling have resolved but they come back every day. She denies injury or trauma. She denies chest pain, shortness of breath, hemoptysis. She states that pain at its worst is 8 out of 10 and is described as a dull ache. Left knee x-ray from last night without any acute abnormalities noted. Patient will be discharged home with 7-day course of naproxen and advised to follow-up with her primary care provider or orthopedics if no improvement or worsening symptoms. She is advised to return to the emergency department as needed. She verbalizes understanding of and agreement with plan of care. Critical care attestation.: If time is entered above; I have spent that time in minutes in the direct care of this critically ill patient, excluding procedure time. ED Disposition Clinical Impression: Left knee pain Qualifiers: Chronicity: acute Qualified Code(s): M25.562 - Pain in left knee Disposition: HOME / SELF CARE / HOMELESS Is pt being admited?: No Does the pt Need Aspirin: No Condition: Stable Instructions: How to Use Cold Therapy, [id number], Acute Knee Pain, Adult, [id number], Joint Pain, [id number] Additional Instructions: Take medications as prescribed. Follow-up with your primary care provider if no improvement or worsening symptoms. Return to the emergency department as needed. Prescriptions: Naproxen [Naprosyn] 500 mg PO BID #14 tab Referrals: JOSUE SALINAS MD [Staff Physician] - 3-5 Days Forms: Work/School Release Form(ED) Time of Disposition: 16:36
[2022-01-16 16:54] VITALS: BP 121/78
== END 2022-01-16 17:00 | disposition home or self-care (01) ==
LOC: ED 09:41
DX: M25.562 Pain in left knee (principal); J45.909 Unspecified asthma, uncomplicated; Z90.49 Acquired absence of other specified parts of digestive tract; F17.200 Nicotine dependence, unspecified, uncomplicated; Z91.09 Other allergy status, other than to drugs and biological substances; Z79.899 Other long term (current) drug therapy
CPT/HCPCS: 99282